=== PATIENT | female | born 1955 | race Caucasian/White ===

== ENCOUNTER 2021-10-24 07:56 | Outpatient (REF) | payer OTHER, SELFPAY ==
[2021-10-24 11:27] LABS: MANUAL DIFF FLAG NO
[2021-10-24 11:49] LABS: Basophils Absolute Auto 0.1 X10*3/uL (0.0-0.2); Basophils Percent Auto 0.9 % (0-2); Eosinophils Absolute Auto 0.4 X10*3/uL (0.0-0.4); Eosinophils Percent Auto 5.9 % (0-4); Hematocrit 41.7 % (37.0-47.0); Hemoglobin 13.6 g/dl (12.0-16.0); Imm Gran Abs Auto 0.03 X10*3/uL (0.00-0.03); Imm Gran Pct Auto 0.4 % (0.0-0.4); Lymphocytes Absolute Auto 1.5 X10*3/uL (1.2-4.9); Lymphocytes Percent Auto 22.3 % (20-40); Mean Corpuscular HGB Conc 32.6 g/dl (31.0-35.0); Mean Corpuscular Hemoglobin 30.7 pg (27.0-33.0); Mean Corpuscular Volume 94.1 fL (80.0-98.0); Mean Platelet Volume 10.1 fL (9.4-12.3); Monocytes Absolute Auto 0.4 X10*3/uL (0.1-1.2); Monocytes Percent Auto 6.4 % (2-11); Neutrophils Absolute Auto 4.3 x10*3/uL (2.0-8.3); Neutrophils Percent Auto 64.1 % (45-73); Platelet Count 406 X10*3/uL (160-400); Red Blood Count 4.43 X10*6/uL (4.20-5.50); Red Cell Distribution Width 12.1 % (11.0-16.0); White Blood Count 6.7 X10*3/uL (4.8-10.8)
[2021-10-24 12:07] LABS: Alanine Aminotransferase 25 U/L (0-31); Albumin Level 3.9 g/dL (3.5-5.0); Alkaline Phosphatase 84 U/L (39-117); Anion Gap 9 (12-20); Aspartate Amino Transferase 20 U/L (5-31); Bilirubin Total 0.7 mg/dL (0.0-1.0); Blood Urea Nitrogen 7 mg/dL (9-16); Calcium 9.2 mg/dL (8.4-10.2); Carbon Dioxide 30 mmol/L (22-29); Chloride 106 mmol/L (96-108); Cholesterol 181 mg/dL; Estimated Glomerular Filt Rate > 60; Glucose Fasting 94 mg/dL (60-99); HDL Cholesterol 47 mg/dL; LDL Cholesterol Calculated 104 mg/dl; Potassium 4.1 mmol/L (3.3-5.1); Sodium 141 mmol/L (135-145); Total Protein 6.9 g/dL (6.5-8.0); Triglycerides 151 mg/dL
[2021-10-24 12:19] LABS: TSH reflex Free T4 1.41 uIU/mL (0.32-4.0)
[2021-10-29 12:31] LABS: Vitamin D 25-OH, D2 61 ng/mL; Vitamin D 25-OH, D3 6 ng/mL; Vitamin D 25-OH, Total 67 ng/mL (30-100)
== END 2021-10-24 07:57 | disposition home or self-care (01) ==
LOC: HO.HMGCLDS 07:56
PROVIDERS: PCP Internal Medicine; Visit Provider Internal Medicine
DX: Z00.01 Encounter for general adult medical examination with abnormal findings (principal); I10 Essential (primary) hypertension; E03.8 Other specified hypothyroidism; E66.01 Morbid (severe) obesity due to excess calories; K21.9 Gastro-esophageal reflux disease without esophagitis; G44.89 Other headache syndrome; F41.1 Generalized anxiety disorder
CPT/HCPCS: 36415; 80053; 80061; 82306; 84443; 85025

== ENCOUNTER → 2022-05-19 14:14 | Outpatient (BNVA) | payer OTHER, SELFPAY | PROVIDERS: PCP Family Medicine; Visit Provider Internal Medicine Pulmonary Disease | DX: R05.3 Chronic cough (principal) ==

== ENCOUNTER 2022-10-29 09:06 | Outpatient (REF) | payer OTHER, SELFPAY ==
--- NOTE | ~2022-10-29 | XR_ITS ---
EXAMINATION: XR CHEST CLINICAL INFORMATION: Chronic cough COMPARISON: None available. TECHNIQUE: 2 views of the chest were obtained. FINDINGS: No significant abnormality is noted involving the heart, lungs, mediastinum, bony thorax or soft tissues. Degenerative changes of the spine. XR/XR chest 2V IMPRESSION: No evidence for acute disease in the chest.
== END 2022-10-29 09:07 | disposition home or self-care (01) ==
LOC: HO.XRAY 09:06
PROVIDERS: PCP Family Medicine; Visit Provider Family Medicine
DX: R05.3 Chronic cough (principal)
CPT/HCPCS: 71046

== ENCOUNTER 2023-02-01 08:56 | Outpatient (AMB) | payer OTHER, SELFPAY ==
[2023-02-01 09:03] VITALS: BP 122/70; PULSE 64; O2SAT 95
--- NOTE | 2023-02-01 09:03 | A.OFFPC_ITS ---
Vital Signs 02/01/23 09:03 Height 5 ft 6 in BMI Reason not done Patient refused/unable BP 122/70 Blood Pressure Location Lt brachial Position Sitting Pulse 64 Pulse Source Pulse Oximeter Pulse Oximetry (%) 95 Oxygen Delivery Method Room Air Intake Visit Reasons: CPE with f/u labs and health maintenance Intake Note: Patient is here for her physical today. Allergies amoxicillin Allergy (Mild, Verified 02/01/23 09:06) Rash Medication List - Last Reconciled 02/01/23 by Wilbert Day MD atenolol 50 mg PO DAILY clobetasol 0.05% 1 appl topical DAILY 90 days ergocalciferol (vitamin D2) 1,250 mcg PO QWEEK 28 days estradiol 0.01%(0.1mg/gram) 1 appful vaginal 2XW famotidine 40 mg PO DAILY 90 days fluticasone propionate 110 mcg/actuation (Flovent HFA) 1 puff inhalation Q12H 30 days hydrochlorothiazide 25 mg PO DAILY ketoconazole 2% topical levothyroxine 75 mcg PO DAILY lorazepam 1 mg PO BEDTIME PRN 30 days omeprazole 20 mg PO BID rizatriptan 10 mg PO DAILY PRN 28 days zinc sulfate (Orazinc) 50 mg PO .2 times weekly Tobacco use date assessed: 02/01/23 Fall risk assessment: No Falls in past year Last assessed Fall Risk: 02/01/23 Dental Screening Dental Screen Date: 02/01/23 Did you have a dental visit in the last 12 months?: Yes Did you have a dental problem in the last 6 months where you did not have access to dental care?: No Was dental information given to patient?: Patient has dentist HPI CPE with f/u labs and health maintenance HPI Details 67 y/o female presents for a CPE with f/ u labs and health maintenance. No recent labs to review. Blood pressure today 122/70. She is on atenolol 50mg daily. Pt reports last colonoscopy was about 3 years ago. Last mammogram 05/21/22 and was fine. She sees her Ob-Leasing Consultant annually. 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 Bob Hedrick, Yudith Navarrete, Navneet Keenan and colleagues, with an educational cydney from [employer]. Review of Systems Const Denies chills, Denies fatigue, Denies fever(s), Denies headache(s) and Denies weakness Eyes Denies change in vision ENT Denies dizziness, Denies headache(s), Denies hearing loss, Denies nasal congestion, Denies sinus pain, Denies sinus pressure and Denies sore throat Card Denies chest pain, Denies lightheadedness, Denies dyspnea and Denies other (palpitations) Resp Denies cough, Denies dyspnea and Denies wheezing GI Denies abdominal pain, Denies melena, Denies hematochezia, Denies change in bowel habits, Denies dyspepsia and Denies nausea Denies hematuria and Denies dysuria Musc Denies abnormal gait, Denies myalgias, Denies arthralgias, Denies numbness and Denies tingling Skin/Breast Denies rash, Denies unusual bruising and Denies wounds Neuro Denies abnormal gait, Denies dizziness, Denies headache(s), Denies memory loss, Denies numbness, Denies Sensory deficit (Neuro), Denies tingling and Denies weakness Psych Denies anxiety, Denies depression and Denies memory loss Endo Denies cold intolerance, Denies fatigue, Denies heat intolerance, Denies polydipsia and Denies polyuria Wilian/Lymph Denies easy bleeding and Denies easy bruising Aller/Immun Denies wheezing Physical exam (Primary Care) Vital Signs: Last Vital Signs Pulse 64 02/01/23 09:03 BP 122/70 02/01/23 09:03 Pulse Ox 95 02/01/23 09:03 Oxygen Delivery Method Room Air 02/01/23 09:03 Tobacco/Smoking Status: Tobacco use Status Tobacco use date assessed 02/01/23 02/01/23 09:08 Patient Tobacco Use Status Never used Tobacco 02/01/23 09:08 e-Cigarette/Vaping Use Never Used 02/01/23 09:08 Thrive Assessment: Date of Thrive Assessment Date Thrive assessed 07/21/21 02/01/23 09:08 Const General: no acute distress, well developed, alert and awake Nutritional Appearance: well nourished Orientation/consciousness: patient oriented x3 HENMT Other: Cerumen debris bilateral ear canal Head: Yes normocephalic and Yes atraumatic Ears: hearing grossly normal bilaterally and TM's normal bilaterally General nose exam: Normal external nose present and Normal nares present Mouth: Normal oral and palatal mucosa present and moist mucous membranes Teeth and gingiva: dentition normal Throat: Yes posterior oropharynx normal Eyes General: appearance normal, both eyes and all related structures Pupils: Equal, round and reactive pupils present and Pupil accommodation reflex normal EOM: EOMs intact bilaterally Neck Neck: Yes normal visual inspection, Yes no lymphadenopathy and Yes trachea midline Thyroid: Thyroid normal Carotids: no bruits Lymphatic: no lymphadenopathy noted Chest Chest palpation & inspection: normal inspection of the chest Resp Effort & Inspection: normal respiratory effort Auscultation: clear to auscultation bilaterally Cardio Rate: regular rate Rhythm: regular rhythm Heart sounds: S1 normal heart sound present, S2 normal heart sound present, no gallops, no murmurs and no rubs Bruits: no abdominal aortic bruits and no carotid bruits GI Palpation (GI): No Abdominal aortic bruit present, Soft to palpation, nontender, No hepatosplenomegaly present and No Rebound tenderness present Auscultation: normal bowel sounds General: Yes no CVA tenderness Back/Spine/Pelvis Back: no CVA tenderness Cervical Spine: cervical ROM normal and No Cervical spine tenderness Thoracic/Lumbar Spine: thoraco-lumbar ROM normal, No pain with thoraco-lumbar ROM, No thoracic spinal tenderness and No lumbar spinal tenderness Skin Lesions: no lesions Rashes: no rashes Trauma: no lacerations or abrasions Wounds: no wounds Nails: normal Neuro General: patient oriented x3 Cranial nerves: Yes Equal, round and reactive pupils present Cognition (Neuro): normal cognition Gait exam (Neuro): Normal gait present Motor exam (neuro): 5/5 motor strength present throughout Sensory Exam: No Sensory deficit (Neuro) Deep tendon reflexes (DTR's): Right patellar reflex intensity grade: 2+ and Left patellar reflex intensity grade: 2+ Extrem General: Yes normal to inspection and No edema Psych Appearance: grossly normal Affect: normal affect Attitude: cooperative Thought process: Normal thought process present Assessment and Plan Assessment & Plan (1) Adult general medical exam: Code(s): Z00.00 - Encounter for general adult medical examination without abnormal findings Plan: 67-year-old female presents for complete physical exam Encouraged healthy diet with active lifestyle and plenty of exercise (2) Chronic cough: Code(s): R05.3 - Chronic cough Plan: This appears to be primarily due to chronic GERD and has improved with omeprazole and famotidine as well as Flovent. Still has mild symptoms. She is working on losing weight If she continues to have symptoms, will refer to Pulmonary Medicine (3) Chronic GERD: Code(s): K21.9 - Gastro-esophageal reflux disease without esophagitis Plan: Continue medications for GERD Work on weight loss (4) Hypertension, essential: Code(s): I10 - Essential (primary) hypertension Plan: Blood pressure is controlled. Goal is less than 140/90 Continue current medication regimen (5) Cerumen debris on tympanic membrane: Code(s): H61.20 - Impacted cerumen, unspecified ear Plan: She can try Debrox drops If she is still having problems, will consider referral to ENT or audiology. (6) Screening for colon cancer: Code(s): Z12.11 - Encounter for screening for malignant neoplasm of colon Plan: Dr. Connell perform colonoscopy 3 years ago and she has a follow-up in 2 years. Up-to-date (7) Screening for osteoporosis: Code(s): Z13.820 - Encounter for screening for osteoporosis Plan: She says she is up-to-date but may be due for bone density again this year. She says no osteoporosis was found Follow-up with OBGYN who manages her bone density testing, as recommended (8) Breast cancer screening by mammogram: Code(s): Z12.31 - Encounter for screening mammogram for malignant neoplasm of breast Plan: Managed by household personal assistant Last mammogram was this year and was negative. Up-to-date Coding Level of Care Code Est Pt Level 3 (10832) Est Pt Prev Care >65y(89595) Diagnoses Adult general medical exam Z00.00 Chronic cough R05.3 Chronic GERD K21.9 Hypertension, essential I10 Cerumen debris on tympanic membrane H61.20 Screening for colon cancer Z12.11 Screening for osteoporosis Z13.820 Breast cancer screening by mammogram Z12.31
== END 2023-02-01 09:54 | disposition home or self-care (01) ==
PROVIDERS: PCP Family Medicine; Visit Provider Family Medicine
DX: Z00.00 Encounter for general adult medical examination without abnormal findings (principal); R05.3 Chronic cough; K21.9 Gastro-esophageal reflux disease without esophagitis; I10 Essential (primary) hypertension; H61.23 Impacted cerumen, bilateral
CPT/HCPCS: 99397

== ENCOUNTER 2023-03-24 12:32 | Outpatient (REF) | payer OTHER, SELFPAY ==
[2023-03-24 12:49] LABS: MANUAL DIFF FLAG NO
[2023-03-24 13:27] LABS: Basophils Absolute Auto 0.1 X10*3/uL (0.0-0.2); Basophils Percent Auto 0.9 % (0-2); Eosinophils Absolute Auto 0.4 X10*3/uL (0.0-0.4); Eosinophils Percent Auto 4.1 % (0-4); Hematocrit 39.4 % (37.0-47.0); Hemoglobin 13.2 g/dl (12.0-16.0); Imm Gran Abs Auto 0.04 X10*3/uL (0.00-0.03); Imm Gran Pct Auto 0.5 % (0.0-0.4); Lymphocytes Absolute Auto 2.3 X10*3/uL (1.2-4.9); Lymphocytes Percent Auto 26.5 % (20-40); Mean Corpuscular HGB Conc 33.5 g/dl (31.0-35.0); Mean Corpuscular Volume 92.5 fL (80.0-98.0); Mean Platelet Volume 9.7 fL (9.4-12.3); Monocytes Absolute Auto 0.6 X10*3/uL (0.1-1.2); Monocytes Percent Auto 7.5 % (2-11); Neutrophils Absolute Auto 5.2 x10*3/uL (2.0-8.3); Neutrophils Percent Auto 60.5 % (45-73); Platelet Count 408 X10*3/uL (160-400); Red Blood Count 4.26 X10*6/uL (4.20-5.50); White Blood Count 8.5 X10*3/uL (4.8-10.8)
[2023-03-24 14:09] LABS: Alanine Aminotransferase 28 U/L (0-31); Alkaline Phosphatase 75 U/L (39-117); Anion Gap 10 (12-20); Aspartate Amino Transferase 29 U/L (5-31); Bilirubin Total 0.4 mg/dL (0.0-1.0); Blood Urea Nitrogen 11 mg/dL (9-16); Calcium 9.2 mg/dL (8.4-10.2); Carbon Dioxide 32 mmol/L (22-29); Chloride 103 mmol/L (96-108); Cholesterol 184 mg/dL (<200); Estimated Glomerular Filt Rate > 60; Glucose Fasting 84 mg/dL (60-99); HDL Cholesterol 45 mg/dL (>40); LDL Cholesterol Calculated 94 mg/dL (<100); Potassium 3.1 mmol/L (3.3-5.1); Sodium 142 mmol/L (135-145); Total Protein 7.2 g/dL (6.5-8.0); Triglycerides 225 mg/dL (<150)
[2023-03-24 14:18] LABS: Appearance Urine Clear; Color Urine Yellow; Glucose Urine UA Negative (Negative); Leukocyte Esterase Urine Small (1+) (Negative); Nitrite Urine Negative (Negative); PH 6.5 (5.0-9.0); Specific Gravity - Urine >= 1.030 (1.005-1.025); UMIC TRIGGER UA YES; Urine Blood Negative (Negative); Urine Ketones Trace mg/dL (Negative); Urine Protein Trace mg/dL (Neg-Trace)
[2023-03-24 14:25] LABS: TSH reflex Free T4 3.26 uIU/mL (0.32-4.0)
[2023-03-24 14:28] LABS: Bacteria Urine None Seen (None Seen); Hyaline Casts Urine 0-2 /LPF (0-2); RBC Urine 0-2 /HPF (0-2); WBC Urine 0-5 /HPF (0-5)
[2023-03-24 15:05] LABS: Creatinine Urine 232.02 mg/dL; Microalbum/Creatinine Ratio Ur 11.6 ug/mg cr (<30)
== END 2023-03-24 12:33 | disposition home or self-care (01) ==
LOC: HO.LAB 12:32
PROVIDERS: PCP Family Medicine; Visit Provider Family Medicine
DX: Z00.00 Encounter for general adult medical examination without abnormal findings (principal); R05.3 Chronic cough; I10 Essential (primary) hypertension
CPT/HCPCS: 36415; 80053; 80061; 81001; 82043; 82570; 84443; 85025

== ENCOUNTER 2023-03-29 15:29 | Outpatient (AMB) | payer OTHER, SELFPAY ==
--- NOTE | 2023-03-29 15:21 | MHC.PC.OV ---
Intake Visit Reasons: f/u CPE-labs, Intake Note: Patient is ready for her telehealth Resource Analyst Required: No Accompanied by: Self / Same As Patient Allergies amoxicillin Allergy (Mild, Verified 03/29/23 15:27) Rash Tobacco use date assessed: 02/01/23 HPI f/u CPE-labs, HPI Details 67 y/o female presents to f/u CPE-labs via telemed. Labs were drawn 03/24/23. Reviewed labs with pt. Triglycerides 225. TC 184. LDL 94. HDL 45. Mild hypokalemia. 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 Bob Hedrick, Yudith Navarrete, Navneet Keenan and colleagues, with an educational cydney from [employer]. Review of Systems Const Denies chills, Denies fatigue, Denies fever(s), Denies headache(s) and Denies weakness ENT Denies dizziness and Denies headache(s) Card Denies dyspnea Resp Denies cough, Denies dyspnea, Denies wheezing and Denies other (shortness of breath) Musc Denies numbness and Denies tingling Neuro Denies dizziness, Denies headache(s), Denies numbness, Denies tingling and Denies weakness Psych Denies anxiety and Denies depression Endo Denies fatigue Aller/Immun Denies wheezing Physical exam (Primary Care) Tobacco/Smoking Status: Tobacco use Status Tobacco use date assessed 02/01/23 03/29/23 15:26 Patient Tobacco Use Status Never used Tobacco 03/29/23 15:26 e-Cigarette/Vaping Use Never Used 03/29/23 15:26 Thrive Assessment: Date of Thrive Assessment Date Thrive assessed 07/21/21 03/29/23 15:26 Telehealth Telehealth Location of provider rendering services: practice address Location of patient: address on file Patient Identification confirmed using: Name, : Yes Telehealth method: voice only Patient verbally consented to treatment: Yes Patient verbally consented to billing insurance company: Yes Patient informed of any privacy concerns related to visit: Yes Minutes spent on Phone/Video with Pt.: 6 Assessment and Plan Assessment & Plan (1) Hypertriglyceridemia: Code(s): E78.1 - Pure hyperglyceridemia Plan: Decreased?saturated?fats?and?cholesterol?in?diet Decrease?sugary?foods?in?diet Maintain?weight?and?encouraged?exercise (2) Hypokalemia: Code(s): E87.6 - Hypokalemia Plan: Mild Hydrate?well.??Can?use?1?electrolyte?drink?per?day? Coding Level of Care Code Tele Est Pt Level 2 (12185) Diagnoses Hypertriglyceridemia E78.1 Hypokalemia E87.6
== END 2023-03-29 16:29 | disposition home or self-care (01) ==
PROVIDERS: PCP Family Medicine; Visit Provider Family Medicine
DX: E78.1 Pure hyperglyceridemia (principal); E87.6 Hypokalemia
CPT/HCPCS: 99441

== ENCOUNTER 2023-07-01 08:22 | Outpatient (AMB) | payer OTHER, SELFPAY ==
[2023-07-01 08:39] VITALS: BP 124/74; PULSE 49; O2SAT 96; BMI 29.9
--- NOTE | 2023-07-01 08:39 | A.OFFPC_ITS ---
Vital Signs 07/01/23 08:39 Height 5 ft 6 in Weight 185 lb BMI 29.9 BP 124/74 Blood Pressure Location Lt brachial Position Sitting Pulse 49 L Pulse Source Pulse Oximeter Pulse Oximetry (%) 96 Oxygen Delivery Method Room Air Intake Visit Reasons: f/u hypertension and chronic conditions Intake Note: Patient is here to follow up on hypertension and chronic conditions. Allergies amoxicillin Allergy (Mild, Verified 07/01/23 08:41) Rash Medication List - Last Reconciled 07/01/23 by Wilbert Day MD atenolol 50 mg PO DAILY clobetasol 0.05% 1 appl topical DAILY 90 days ergocalciferol (vitamin D2) 1,250 mcg PO QWEEK 84 days estradiol 0.01%(0.1mg/gram) 1 appful vaginal 2XW famotidine 40 mg PO DAILY 90 days fluticasone propionate 110 mcg/actuation (Flovent HFA) 1 puff inhalation Q12H 30 days hydrochlorothiazide 25 mg PO DAILY ketoconazole 2% topical levothyroxine 75 mcg PO DAILY lorazepam 1 mg PO BEDTIME PRN 30 days omeprazole 20 mg PO BID rizatriptan 10 mg PO DAILY PRN 28 days zinc sulfate (Orazinc) 50 mg PO .2 times weekly Tobacco use date assessed: 07/01/23 Fall risk assessment: No Falls in past year Last assessed Fall Risk: 07/01/23 Dental Screening Dental Screen Date: 07/01/23 Did you have a dental visit in the last 12 months?: Yes Did you have a dental problem in the last 6 months where you did not have access to dental care?: No Was dental information given to patient?: Patient has dentist HPI f/u hypertension and chronic conditions HPI Details 67 y/o female presents to f/u hypertensi on. Blood pressure today 124/74. She is on hydrochlorothiazide 25mg and atenolol 50mg daily. Labs were drawn 03/24/23. Reviewed labs with pt. Potassium level mildly low. Triglycerides 225. TC 184. LDL 94. HDL 45. 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 1. Little interest or pleasure in doing things: not at all 2. Feeling down, depressed, or hopeless: not at all 3. Trouble falling or staying asleep, or sleeping too much: not at all 4. Feeling tired or having little energy: not at all 5. Poor appetite or overeating: not at all 6. Feeling bad about yourself - or that you are a failure or have let yourself or your family down: not at all 7. Trouble concentrating on things, such as reading the newspaper or watching television: not at all 8. Moving or speaking so slowly that other people could have noticed. Or the opposite - being so fidgety or restless that you have been moving around a lot more than usual: not at all 9. Thoughts that you would be better off or of hurting yourself in some way: not at all Total score: 0 Depression Screening Interpretation: Negative Depression Screening Done: Yes 66103 - PHQ-9 Billing: Yes Source: Developed by Drs. Bob Hedrick, Yudith Navarrete, Navneet Keenan and colleagues, with an educational cydney from [employer]. Thrive Questionnaire Date Thrive assessed: 07/01/23 I am a: Patient What is your living situation today?: I have a steady place to live Within the past 12 months, did the food you bought not last and you didn't have the money to get more?: Never true Within the past 12 months, did you worry whether your food would run out before you got money to buy more?: Never true Do you have trouble paying for medicines?: No Do you have trouble getting transportation to medical appointments?: No Do you have trouble paying your heating and electricity bill?: No Do you have trouble taking care of your child, family member or friend?: No Do you have trouble with day-to-day activities such as bathing, preparing meals, shopping, managing finances, etc.?: No Are you currently unemployed and looking for a job?: No Are you interested in more education?: No THRIVE Score: 0 AUDIT C Alcohol Use Questionnaire (AUDIT-C) 1. How often do you have a drink containing alcohol?: Monthly or less 2. How many drinks containing alcohol do you have on a typical day when you are drinking?: 1 or 2 3. How often do you have six or more drinks on one occasion?: Never Total Score: 1 GLYNN-7 AMB Questionnaire GLYNN-7 Date GLYNN - 7 assessed: 07/01/23 Feeling nervous, anxious, or on edge: 0 = Not at all Not being able to stop or control worryin = Not at all Worrying too much about different things: 0 = Not at all Trouble relaxin = Not at all Being so restless that it is hard to sit still: 0 = Not at all Becoming easily annoyed or irritable: 0 = Not at all Feeling afraid as if something awful might happen: 0 = Not at all Total GLYNN-7 score (0-4 normal; 5-9 mild; 10-14 moderate; 15-21 severe): 0 Source: Developed by Drs. Bob Hedrick, Yudith Navarrete, Navneet Keenan and colleagues, with an educational cydney from [employer]. GLYNN-7 Assessment Billing GLYNN-7 Assessment Tool: GLYNN-7 Assessment [id number] Review of Systems Const Denies chills, Denies fatigue, Denies fever(s), Denies headache(s) and Denies weakness ENT Denies dizziness and Denies headache(s) Card Denies dyspnea Resp Denies cough, Denies dyspnea, Denies wheezing and Denies other (shortness of breath) Musc Denies numbness and Denies tingling Neuro Denies dizziness, Denies headache(s), Denies numbness, Denies tingling and Denies weakness Psych Denies anxiety and Denies depression Endo Denies fatigue Aller/Immun Denies wheezing Physical exam (Primary Care) Vital Signs: Last Vital Signs Pulse 49 L 07/01/23 08:39 BP 124/74 07/01/23 08:39 Pulse Ox 96 07/01/23 08:39 Oxygen Delivery Method Room Air 07/01/23 08:39 BMI result Body Mass Index 29.9 Tobacco/Smoking Status: Tobacco use Status Tobacco use date assessed 07/01/23 07/01/23 08:47 Patient Tobacco Use Status Never used Tobacco 07/01/23 08:47 e-Cigarette/Vaping Use Never Used 07/01/23 08:47 PHQ-9: PHQ-9 Score PHQ-9: Total score 0 07/01/23 08:47 Depression Screening Interpretation: Negative Thrive Assessment: Date of Thrive Assessment Date Thrive assessed 07/01/23 07/01/23 08:47 Const General: well developed; No acute distress Nutritional Appearance: well nourished Orientation/consciousness: patient oriented x3 HENMT Head: Yes normocephalic and Yes atraumatic Eyes General: appearance normal, both eyes and all related structures Pupils: Equal, round and reactive pupils present EOM: EOMs intact bilaterally Resp Effort & Inspection: normal respiratory effort Auscultation: clear to auscultation bilaterally Cardio Rate: regular rate Rhythm: regular rhythm Heart sounds: S1 normal heart sound present, S2 normal heart sound present, no gallops, no murmurs and no rubs Neuro General: patient oriented x3 and gait normal Cranial nerves: Yes Equal, round and reactive pupils present Psych Affect: normal affect Assessment and Plan Assessment & Plan (1) Hypertension, essential: Code(s): I10 - Essential (primary) hypertension Plan: There?is?well?controlled.??Goal?is?less?than?140/90 Continue?current?medication (2) Hypertriglyceridemia: Code(s): E78.1 - Pure hyperglyceridemia Plan: Mild/moderate?elevation?in?triglycerides No?indication?for?medication?however.??Encouraged?lifestyle?changes Other?lipids?are?okay (3) Hypokalemia: Code(s): E87.6 - Hypokalemia Plan: Mildly?low?potassium?level. Likely?due?to?hydrochlorothiazide Increase?potassium?in?diet?or?can?use?OTC?supple Will?recheck?with?next?blood?draw (4) Vitamin D deficiency: Code(s): E55.9 - Vitamin D deficiency, unspecified Plan: Last?check?a?vitamin-D?showed?that?it?is?now?within?normal?range. Will?repeat?with?next?blood?draw She?is?on?89669?IU; if?still?in?normal?range,?would?recommend?we?switch?to?lower?more?frequent?dose. (5) Anxiety, generalized: Code(s): F41.1 - Generalized anxiety disorder Plan: Stable She?uses?lorazepam?p.r.n.,?as?prescribed. Orders: Orders Vitamin D 25-OH Total Today E55.9 - Vitamin D deficiency, unspecified Basic Metabolic Panel Today E87.6 - Hypokalemia, Z00.00 - Encounter for general adult medical examination without abnormal findings Medications: Changed From ergocalciferol (vitamin D2) 1,250 mcg PO QWEEK 4 caps 2RF 28 days To ergocalciferol (vitamin D2) 1,250 mcg PO QWEEK 12 caps 0RF 84 days Refilled lorazepam [facility] verified. Partial refill upon request. 1 mg PO BEDTIME PRN 12 tabs 0RF anxiety 30 days Coding Level of Care Code Est Pt Level 4 (38734) Diagnoses Hypertension, essential I10 Hypertriglyceridemia E78.1 Hypokalemia E87.6 Vitamin D deficiency E55.9 Anxiety, generalized F41.1 Additional Codes GLYNN-7 Assessment Billing - GLYNN-7 Assessment Tool: GLYNN-7 Assessment [id number] ([id number])
== END 2023-07-01 09:02 | disposition home or self-care (01) ==
PROVIDERS: PCP Family Medicine; Visit Provider Family Medicine
DX: I10 Essential (primary) hypertension (principal); E78.1 Pure hyperglyceridemia; E87.6 Hypokalemia; E55.9 Vitamin D deficiency, unspecified; F41.1 Generalized anxiety disorder
CPT/HCPCS: 99214

== ENCOUNTER 2023-09-29 06:07 | Outpatient (REF) | payer OTHER, SELFPAY ==
[2023-09-29 08:38] LABS: Anion Gap 15 (12-20); Blood Urea Nitrogen 10 mg/dL (9-16); Calcium 9.5 mg/dL (8.4-10.2); Carbon Dioxide 26 mmol/L (22-29); Chloride 105 mmol/L (96-108); Estimated Glomerular Filt Rate > 60; Glucose Random 117 mg/dL (60-115); Potassium 3.5 mmol/L (3.3-5.1); Sodium 142 mmol/L (135-145)
[2023-09-29 08:41] LABS: Vitamin D 25-OH Total 35.8 ng/mL (>30)
== END 2023-09-29 06:08 | disposition home or self-care (01) ==
LOC: HO.LAB 06:07
PROVIDERS: PCP Family Medicine; Visit Provider Family Medicine
DX: Z00.00 Encounter for general adult medical examination without abnormal findings (principal); E55.9 Vitamin D deficiency, unspecified; E87.6 Hypokalemia
CPT/HCPCS: 36415; 80048; 82306

== ENCOUNTER 2023-09-30 08:10 | Outpatient (AMB) | payer OTHER, SELFPAY ==
[2023-09-30 08:12] VITALS: BP 116/70; PULSE 62; RESP 14; TEMP 36.1; O2SAT 99
--- NOTE | 2023-09-30 08:12 | MHC.PC.OV ---
Vital Signs 09/30/23 08:12 Height 5 ft 6 in BMI Reason not done Patient refused/unable BP 116/70 Blood Pressure Location Rt brachial Position Sitting Respiration 14 Pulse 62 Pulse Source Pulse Oximeter Temp 97 F Temp Source Temporal Artery Scan Pulse Oximetry (%) 99 Oxygen Delivery Method Room Air Intake Visit Reasons: f/u hypertension, labs Intake Note: Patient would like Rizatriptan refilled. Racing Secretary Required: No Accompanied by: Self / Same As Patient Allergies Seasonal Allergies Allergy (Intermediate, Verified 09/30/23 08:18) Runny Nose amoxicillin Allergy (Mild, Verified 07/01/23 08:41) Rash Medication List - Last Reconciled 09/30/23 by Wilbert Day MD atenolol 50 mg PO DAILY 90 days clobetasol 0.05% 1 appl topical DAILY 90 days ergocalciferol (vitamin D2) 1,250 mcg PO QWEEK 84 days estradiol 0.01%(0.1mg/gram) 1 appful vaginal 2XW famotidine 40 mg PO DAILY fluticasone propionate 110 mcg/actuation (Flovent HFA) 1 puff inhalation Q12H 30 days hydrochlorothiazide 25 mg PO DAILY ketoconazole 2% topical levothyroxine 75 mcg PO DAILY lorazepam 1 mg PO BEDTIME PRN 30 days omeprazole 20 mg PO BID rizatriptan 10 mg PO DAILY PRN 28 days zinc sulfate (Orazinc) 50 mg PO .2 times weekly Tobacco use date assessed: 07/01/23 Fall risk assessment: No Falls in past year Last assessed Fall Risk: 09/30/23 Dental Screening Dental Screen Date: 07/01/23 HPI f/u hypertension, labs HPI Details 67 y/o female presents to f/u hypertension, labs. Pt had mild hypokalemia and I recommended increase potassium in her diet/or use an OTC supplement. Labs were drawn 09/29/23. Reviewed labs with pt. Vitamin D 35.8 and still within normal range. She continues her weekly dose of vitamin D. Potassium level improved and now at 3.5. Blood pressure today 116/70. She is on HCTZ 25mg, atenolol 50mg daily. HPI Comments History of Present Illness Details Documentation assistance for Wilbert Day MD, was provided by Alex Mina, Criminal Intelligence Analyst on 09/30/2023 8:40 AM EST. Ch[place]la, Dr. Day, have read, observed, and verified documentation. PFSH Medical History Subarachnoid hemorrhage Hyperthyroidism Hypertension Surgical History Hx of cholecystectomy Family History Father Hypertension Social History (Updated 09/30/23 @ 08:21 by ASHLEIGH Sidhu) Household Members: Spouse Both parents involved: No Caregiver staying overnight: No Housing: House Are you a primary resident care technician to a significant other at home: No Do you presently have visiting nurse or other home services: No 75 years or older and lives alone: No Alcohol intake: never Patient Tobacco Use Status: Never used Tobacco e-Cigarette/Vaping Use: Never Used Second Hand Smoke Exposure: No Use of substances other than those prescribed or required for medical reasons: No Currently Displaying Signs/Symptoms of Drug Intoxication Withdrawal: No Any prior treatment program specific to substance use: No Have you been hit, kicked, punched, or otherwise hurt by someone within the past year? 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 Bob Hedrick, Yudith Navarrete, Navneet Keenan and colleagues, with an educational cydney from [employer]. Review of Systems Const Denies chills, Denies fatigue, Denies fever(s), Denies headache(s) and Denies weakness ENT Denies dizziness and Denies headache(s) Card Denies dyspnea Resp Denies cough, Denies dyspnea, Denies wheezing and Denies other (shortness of breath) Musc Denies numbness and Denies tingling Neuro Denies dizziness, Denies headache(s), Denies numbness, Denies tingling and Denies weakness Psych Denies anxiety and Denies depression Endo Denies fatigue Aller/Immun Denies wheezing Physical exam (Primary Care) Vital Signs: Last Vital Signs Temp 97 F 09/30/23 08:12 Pulse 62 09/30/23 08:12 Resp 14 09/30/23 08:12 BP 116/70 09/30/23 08:12 Pulse Ox 99 09/30/23 08:12 Oxygen Delivery Method Room Air 09/30/23 08:12 Tobacco/Smoking Status: Tobacco use Status Tobacco use date assessed 07/01/23 09/30/23 08:17 Patient Tobacco Use Status Never used Tobacco 09/30/23 08:21 e-Cigarette/Vaping Use Never Used 09/30/23 08:21 Thrive Assessment: Date of Thrive Assessment Date Thrive assessed 07/01/23 09/30/23 08:17 Const General: well developed; No acute distress Nutritional Appearance: well nourished Orientation/consciousness: patient oriented x3 HENMT Head: Yes normocephalic and Yes atraumatic Eyes General: appearance normal, both eyes and all related structures Pupils: Equal, round and reactive pupils present EOM: EOMs intact bilaterally Resp Effort & Inspection: normal respiratory effort Neuro General: patient oriented x3 and gait normal Cranial nerves: Yes Equal, round and reactive pupils present Psych Affect: normal affect Assessment and Plan Assessment & Plan (1) Hypertension, essential: Code(s): I10 - Essential (primary) hypertension Plan: Blood?pressure?is?well?controlled.??Goal?is?less?than?140/90 Continue?current?medication?regimen (2) Hypokalemia: Code(s): E87.6 - Hypokalemia Plan: Potassium?is?within?normal?range (3) Vitamin D deficiency: Code(s): E55.9 - Vitamin D deficiency, unspecified Plan: Vitamin-D?is?in?normal?range. Will?switch?from?high?dose?weekly?strategy?to?lower?daily?dose. Orders: Orders Comprehensive [place]. Panel Fast Today Z00.00 - Encounter for general adult medical examination without abnormal findings Complete Blood Count Auto Diff Today Z00.00 - Encounter for general adult medical examination without abnormal findings Microalbumin, Random (w Creat) Today I10 - Essential (primary) hypertension UA and rflx microscopic Today Z00.00 - Encounter for general adult medical examination without abnormal findings TSH reflex Free T4 Today Z00.00 - Encounter for general adult medical examination without abnormal findings Triiodothyronine T3 Total Today E03.9 - Hypothyroidism, unspecified Vitamin D 25-OH Total Today E55.9 - Vitamin D deficiency, unspecified Lipid Panel Today Z00.00 - Encounter for general adult medical examination without abnormal findings Free T4 (Free Thyroxine) Today E03.9 - Hypothyroidism, unspecified Medications: New cholecalciferol (vitamin D3) 50 mcg PO DAILY 90 days 90 caps 3RF Refilled rizatriptan 10 mg PO DAILY 28 days PRN 14 tabs 3RF migraine headache Discontinued ergocalciferol (vitamin D2) Discontinued Reason: Doctor's Order 1,250 mcg PO QWEEK 84 days 12 caps 0RF Coding Level of Care Code Est Pt Level 4 (93185) Diagnoses Hypertension, essential I10 Hypokalemia E87.6 Vitamin D deficiency E55.9
== END 2023-09-30 08:56 | disposition home or self-care (01) ==
PROVIDERS: PCP Family Medicine; Visit Provider Family Medicine
DX: I10 Essential (primary) hypertension (principal); E87.6 Hypokalemia; E55.9 Vitamin D deficiency, unspecified
CPT/HCPCS: 99214

== ENCOUNTER 2024-03-15 06:02 | Outpatient (REF) | payer OTHER, SELFPAY ==
[2024-03-15 06:22] LABS: MANUAL DIFF FLAG NO
[2024-03-15 08:00] LABS: Appearance Urine Clear; Color Urine Yellow; Glucose Urine UA Negative (Negative); Leukocyte Esterase Urine Large (3+) (Negative); Nitrite Urine Negative (Negative); Specific Gravity - Urine 1.025 (1.005-1.025); UMIC TRIGGER UA YES; Urine Blood Negative (Negative); Urine Ketones Negative (Negative); Urine Protein Negative (Neg-Trace)
[2024-03-15 08:03] LABS: Basophils Absolute Auto 0.1 X10*3/uL (0.0-0.2); Eosinophils Absolute Auto 0.3 X10*3/uL (0.0-0.4); Eosinophils Percent Auto 3.6 % (0-4); Hematocrit 41.3 % (37.0-47.0); Hemoglobin 13.7 g/dl (12.0-16.0); Imm Gran Abs Auto 0.05 X10*3/uL (0.00-0.03); Imm Gran Pct Auto 0.6 % (0.0-0.4); Lymphocytes Absolute Auto 1.8 X10*3/uL (1.2-4.9); Lymphocytes Percent Auto 22.6 % (20-40); Mean Corpuscular HGB Conc 33.2 g/dl (31.0-35.0); Mean Corpuscular Hemoglobin 30.7 pg (27.0-33.0); Mean Corpuscular Volume 92.6 fL (80.0-98.0); Mean Platelet Volume 9.9 fL (9.4-12.3); Monocytes Absolute Auto 0.6 X10*3/uL (0.1-1.2); Monocytes Percent Auto 6.8 % (2-11); Neutrophils Absolute Auto 5.3 x10*3/uL (2.0-8.3); Neutrophils Percent Auto 65.4 % (45-73); Platelet Count 425 X10*3/uL (160-400); Red Blood Count 4.46 X10*6/uL (4.20-5.50); Red Cell Distribution Width 11.9 % (11.0-16.0); White Blood Count 8.1 X10*3/uL (4.8-10.8)
[2024-03-15 08:15] LABS: Bacteria Urine None Seen (None Seen); Hyaline Casts Urine 0-2 /LPF (0-2); WBC Urine 21-50 /HPF (0-5); Waxy Casts Urine Present
[2024-03-15 08:47] LABS: Creatinine Urine 193.35 mg/dL; Microalbum/Creatinine Ratio Ur 8.7 ug/mg cr (<30)
[2024-03-15 08:48] LABS: Alanine Aminotransferase 31 U/L (0-31); Alkaline Phosphatase 90 U/L (39-117); Anion Gap 15 (12-20); Aspartate Amino Transferase 34 U/L (5-31); Bilirubin Total 0.5 mg/dL (0.0-1.0); Blood Urea Nitrogen 11 mg/dL (9-16); Calcium 9.3 mg/dL (8.4-10.2); Carbon Dioxide 26 mmol/L (22-29); Chloride 105 mmol/L (96-108); Cholesterol 179 mg/dL (<200); Estimated Glomerular Filt Rate > 60; Glucose Fasting 96 mg/dL (60-99); HDL Cholesterol 48 mg/dL (>40); LDL Cholesterol Calculated 106 mg/dL (<100); Potassium 3.5 mmol/L (3.3-5.1); Sodium 142 mmol/L (135-145); Total Protein 7.1 g/dL (6.5-8.0); Triglycerides 128 mg/dL (<150)
[2024-03-15 09:08] LABS: TSH reflex Free T4 4.46 uIU/mL (0.32-4.0); Vitamin D 25-OH Total 44.5 ng/mL (>30)
[2024-03-16 08:22] LABS: Triiodothyronine T3 Total 123 ng/dL (76-181)
[2024-03-20 12:03] LABS: Vitamin C 0.7 mg/dL (0.3-2.7)
== END 2024-03-15 06:03 | disposition home or self-care (01) ==
LOC: HO.LAB 06:02
PROVIDERS: PCP Family Medicine; Visit Provider Family Medicine
DX: Z00.00 Encounter for general adult medical examination without abnormal findings (principal); E03.9 Hypothyroidism, unspecified; I10 Essential (primary) hypertension; E55.9 Vitamin D deficiency, unspecified
CPT/HCPCS: 36415; 80053; 80061; 81001; 81003; 82043; 82180; 82306; 82570; 84439; 84443; 84480; 85025

== ENCOUNTER 2024-03-16 10:26 | Outpatient (AMB) | payer OTHER, SELFPAY ==
--- NOTE | 2024-03-16 10:36 | A.OFFPC_ITS ---
Vital Signs 03/16/24 10:38 Height 5 ft 6 in Weight 190 lb BMI 30.7 BP 123/56 L Blood Pressure Location Lt brachial Position Sitting Respiration 14 Pulse 59 Pulse Source Pulse Oximeter Temp 95.9 F L Temp Source Temporal Artery Scan Pulse Oximetry (%) 97 Oxygen Delivery Method Room Air Intake Visit Reasons: 3 MON FUP MEDICATION Intake Note: 3 moth medication f/u for HTN Allergies Seasonal Allergies Allergy (Intermediate, Verified 03/16/24 10:37) Runny Nose amoxicillin Allergy (Mild, Verified 03/16/24 10:37) Rash Medication List - Last Reconciled 03/16/24 by Wilbert Day MD atenolol 50 mg PO DAILY 90 days betamethasone dipropionate 0.05% 1 appl topical DAILY PRN cholecalciferol (vitamin D3) 50 mcg PO DAILY 90 days ciclopirox 0.77% 1 appl topical BID clobetasol 0.05% 1 appl topical DAILY 90 days estradiol 0.01%(0.1mg/gram) 1 appful vaginal 2XW famotidine 40 mg PO DAILY fluticasone propionate 110 mcg/actuation (Flovent HFA) 1 puff inhalation Q12H 30 days hydrochlorothiazide 25 mg PO DAILY ketoconazole 2% topical levothyroxine 75 mcg PO DAILY lorazepam 1 mg PO BEDTIME PRN 30 days omeprazole 20 mg PO BID rizatriptan 10 mg PO DAILY PRN 28 days triamcinolone acetonide 0.025% 1 appl topical DAILY zinc sulfate (Orazinc) 50 mg PO .2 times weekly Tobacco use date assessed: 07/01/23 Dental Screening Dental Screen Date: 07/01/23 HPI 3 MON FUP MEDICATION HPI Details 68 y/o female presents to f/u chronic co nditions. Blood pressure today 123/56, 59p. She is on atenolol 50mg, hydrochlorothiazide 25mg daily. Has complaints of arthritis on her hands. Labs drawn 03/15/24. Reviewed labs with pt. AST 34, ALT 31. Triglycerides 128. TC 179. LDL 106. HDL 48. TSH 4.46. She is on levothyroxine 75 mcg. She notes she has not been consistent with taking this recently. [facility] Medical History Subarachnoid hemorrhage Hyperthyroidism Hypertension Surgical History Hx of cholecystectomy Family History Father Hypertension Social History (Updated 09/30/23 @ 08:21 by ASHLEIGH Sidhu) Household Members: Spouse Both parents involved: No Caregiver staying overnight: No Housing: House Are you a primary post acute care nurse practitioner to a significant other at home: No Do you presently have visiting nurse or other home services: No 75 years or older and lives alone: No Alcohol intake: never Patient Tobacco Use Status: Never used Tobacco e-Cigarette/Vaping Use: Never Used Second Hand Smoke Exposure: No service: No Current occupational status: employed 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 1. Little interest or pleasure in doing things: not at all 2. Feeling down, depressed, or hopeless: not at all 3. Trouble falling or staying asleep, or sleeping too much: not at all 4. Feeling tired or having little energy: not at all 5. Poor appetite or overeating: not at all 6. Feeling bad about yourself - or that you are a failure or have let yourself or your family down: not at all 7. Trouble concentrating on things, such as reading the newspaper or watching television: not at all 8. Moving or speaking so slowly that other people could have noticed. Or the opposite - being so fidgety or restless that you have been moving around a lot more than usual: not at all 9. Thoughts that you would be better off or of hurting yourself in some way: not at all Total score: 0 Source: Developed by Drs. Bob Hedrick, Yudith Navarrete, Navneet Keenan and colleagues, with an educational cydney from [employer]. Thrive Questionnaire Date Thrive assessed: 07/01/23 I am a: Patient What is your living situation today?: I have a steady place to live Within the past 12 months, did the food you bought not last and you didn't have the money to get more?: Never true Within the past 12 months, did you worry whether your food would run out before you got money to buy more?: Never true Do you have trouble paying for medicines?: No Do you have trouble getting transportation to medical appointments?: No Do you have trouble paying your heating and electricity bill?: No Do you have trouble taking care of your child, family member or friend?: No Do you have trouble with day-to-day activities such as bathing, preparing meals, shopping, managing finances, etc.?: No Are you currently unemployed and looking for a job?: No Are you interested in more education?: No Please select the resources that you would like help with: None Currently or been in a relationship where the following occur: No concerns reported THRIVE Score: 0 AUDIT C Alcohol Use Questionnaire (AUDIT-C) 1. How often do you have a drink containing alcohol?: Never Total Score: 0 GLYNN-7 AMB Questionnaire GLYNN-7 Date GLYNN - 7 assessed: 07/01/23 Feeling nervous, anxious, or on edge: 0 = Not at all Not being able to stop or control worryin = Not at all Worrying too much about different things: 0 = Not at all Trouble relaxin = Not at all Being so restless that it is hard to sit still: 0 = Not at all Becoming easily annoyed or irritable: 0 = Not at all Feeling afraid as if something awful might happen: 0 = Not at all Total GLYNN-7 score (0-4 normal; 5-9 mild; 10-14 moderate; 15-21 severe): 0 Source: Developed by Drs. Bob Hedrick, Yudith Navarrete, Navneet Keenan and colleagues, with an educational cydney from [employer]. Review of Systems Const Denies chills, Denies fatigue, Denies fever(s), Denies headache(s) and Denies weakness ENT Denies dizziness and Denies headache(s) Card Denies chest pain, Denies lightheadedness, Denies dyspnea and Denies other (Palpitations) Resp Denies cough, Denies dyspnea, Denies wheezing and Denies other ( shortness of breath) Musc Denies numbness and Denies tingling Neuro Denies dizziness, Denies headache(s), Denies numbness, Denies tingling, Denies paresthesias and Denies weakness Psych Denies anxiety and Denies depression Endo Denies fatigue Aller/Immun Denies wheezing Physical exam (Primary Care) Vital Signs: Last Vital Signs Temp 95.9 F L 03/16/24 10:38 Pulse 59 03/16/24 10:38 Resp 14 03/16/24 10:38 BP 123/56 L 03/16/24 10:38 Pulse Ox 97 03/16/24 10:38 Oxygen Delivery Method Room Air 03/16/24 10:38 BMI result Body Mass Index 30.7 Tobacco/Smoking Status: Tobacco use Status Tobacco use date assessed 07/01/23 03/16/24 10:43 Patient Tobacco Use Status Never used Tobacco 03/16/24 10:43 e-Cigarette/Vaping Use Never Used 03/16/24 10:43 PHQ-9: PHQ-9 Score PHQ-9: Total score 0 03/16/24 10:43 Thrive Assessment: Date of Thrive Assessment Date Thrive assessed 07/01/23 03/16/24 10:43 Currently or been in a relationship where the following occur: No concerns reported Const General: no acute distress and well developed Nutritional Appearance: well nourished Orientation/consciousness: patient oriented x3 HENMT Head: Yes normocephalic and Yes atraumatic Eyes General: appearance normal, both eyes and all related structures Pupils: Equal, round and reactive pupils present EOM: EOMs intact bilaterally Resp Effort & Inspection: normal respiratory effort Auscultation: clear to auscultation bilaterally Cardio Rate: regular rate Rhythm: regular rhythm Heart sounds: S1 normal heart sound present, S2 normal heart sound present, no gallops, no murmurs and no rubs Neuro General: patient oriented x3 and gait normal Cranial nerves: Yes Equal, round and reactive pupils present Psych Affect: normal affect Coding Level of Care Code Est Pt Level 4 (21574) Diagnoses Hypertension, essential I10 Hyperlipidemia E78.5 Hypothyroidism E03.9 Screening for colon cancer Z12.11 Arthritis of hand M19.049 Elevated liver enzymes R74.8 Assessment & Plan Assessment & Plan (1) Hypertension, essential: Code(s): I10 - Essential (primary) hypertension Category: Medical Plan: Blood?pressure?is?controlled.??Goal?is?less?than?140/90 Continue?current?medication Hydrate?well (2) Hyperlipidemia: Code(s): E78.5 - Hyperlipidemia, unspecified Category: Medical Plan: LDL?cholesterol?mildly?elevated Encouraged?a?diet?lower?in?saturated?fats?and?cholesterol (3) Hypothyroidism: Code(s): E03.9 - Hypothyroidism, unspecified Category: Medical Plan: TSH ?mildly?elevated.??Patient?notes?that?she?has?not?been?taking?her?medication?con sistently She?will?resume?taking?levothyroxine Will?recheck?at?next?visit (4) Screening for colon cancer: Code(s): Z12.11 - Encounter for screening for malignant neoplasm of colon Category: Medical Plan: Patient?had?appointment?with?her?varnish mixer?for?colonoscopy She?she?says?that?she?thinks?the?varnish mixer?mention?something?about?Cro n's Will?request?report (5) Arthritis of hand: Code(s): M19.049 - Primary osteoarthritis, unspecified hand Category: Medical Plan: Use?heat Use?Aspercreme Relative?rest?and?environment?changes (6) Elevated liver enzymes: Code(s): R74.8 - Abnormal levels of other serum enzymes Category: Medical Plan: Recheck?l iver?enzyme?in?a?few?months.??I?recommended?weight?loss?and?good?hydration Orders: Orders Lipid Panel Today E78.5 - Hyperlipidemia, unspecified, Z00.00 - Encounter for general adult medical examination without abnormal findings Comprehensive [place]. Panel Fast Today R74.8 - Abnormal levels of other serum enzymes, Z00.00 - Encounter for general adult medical examination without abnormal findings Free T4 (Free Thyroxine) Today E03.9 - Hypothyroidism, unspecified, R74.8 - Abnormal levels of other serum enzymes Triiodothyronine T3 Total Today E03.9 - Hypothyroidism, unspecified, R74.8 - Abnormal levels of other serum enzymes Thyroid Stimulating Hormone Today E03.9 - Hypothyroidism, unspecified, R74.8 - Abnormal levels of other serum enzymes
[2024-03-16 10:38] VITALS: BP 123/56; PULSE 59; RESP 14; TEMP 35.5; O2SAT 97; BMI 30.7
== END 2024-03-16 11:41 | disposition home or self-care (01) ==
LOC: HO.HMCFM 10:27
PROVIDERS: PCP Family Medicine; Visit Provider Family Medicine
DX: I10 Essential (primary) hypertension (principal); E78.5 Hyperlipidemia, unspecified; E03.9 Hypothyroidism, unspecified; Z12.11 Encounter for screening for malignant neoplasm of colon; M19.049 Primary osteoarthritis, unspecified hand; R74.8 Abnormal levels of other serum enzymes

== ENCOUNTER → 2024-03-16 10:26 | Outpatient (BNVA) | payer OTHER, SELFPAY | PROVIDERS: PCP Family Medicine; Visit Provider Family Medicine ==

== ENCOUNTER 2024-05-11 07:09 | Outpatient (REF) | payer OTHER, SELFPAY ==
[2024-05-11 08:04] LABS: Appearance Urine Cloudy; Color Urine Yellow; Glucose Urine UA Negative (Negative); Leukocyte Esterase Urine Large (3+) (Negative); Nitrite Urine Negative (Negative); Specific Gravity - Urine 1.025 (1.005-1.025); UMIC TRIGGER UA YES; Urine Blood Negative (Negative); Urine Ketones Trace mg/dL (Negative); Urine Protein Trace mg/dL (Neg-Trace)
[2024-05-11 08:31] LABS: Bacteria Urine None Seen (None Seen); RBC Urine 0-2 /HPF (0-2); WBC Urine >50 /HPF (0-5)
[2024-05-11 08:37] LABS: Alanine Aminotransferase 30 U/L (0-31); Albumin Level 3.9 g/dL (3.5-5.0); Alkaline Phosphatase 77 U/L (39-117); Anion Gap 10 (12-20); Aspartate Amino Transferase 27 U/L (5-31); Bilirubin Total 0.5 mg/dL (0.0-1.0); Blood Urea Nitrogen 8 mg/dL (9-16); Calcium 8.9 mg/dL (8.4-10.2); Carbon Dioxide 31 mmol/L (22-29); Chloride 104 mmol/L (96-108); Cholesterol 186 mg/dL (<200); Estimated Glomerular Filt Rate > 60; Free T4 (Free Thyroxine) 1.06 ng/dL (0.71-1.85); Glucose Fasting 98 mg/dL (60-99); HDL Cholesterol 48 mg/dL (>40); LDL Cholesterol Calculated 94 mg/dL (<100); Potassium 4.1 mmol/L (3.3-5.1); Sodium 141 mmol/L (135-145); Thyroid Stimulating Hormone 2.28 uIU/mL (0.32-4.0); Triglycerides 220 mg/dL (<150)
[2024-05-12 08:24] LABS: Triiodothyronine T3 Total 115 ng/dL (76-181)
== END 2024-05-11 07:10 | disposition home or self-care (01) ==
LOC: HO.LAB 07:09
PROVIDERS: PCP Family Medicine; Visit Provider Family Medicine
DX: Z00.00 Encounter for general adult medical examination without abnormal findings (principal); E78.5 Hyperlipidemia, unspecified; R74.8 Abnormal levels of other serum enzymes; E03.9 Hypothyroidism, unspecified
CPT/HCPCS: 36415; 80053; 80061; 81001; 81003; 84439; 84443; 84480

== ENCOUNTER 2024-05-15 08:37 | Outpatient (AMB) | payer OTHER, SELFPAY ==
--- NOTE | 2024-05-15 08:52 | A.OFFPC_ITS ---
Vital Signs 05/15/24 08:57 Height 5 ft 6 in Weight 192 lb 4 oz BMI 31.0 BP 108/70 Blood Pressure Location Rt brachial Position Sitting Respiration 14 Pulse 57 Pulse Source Pulse Oximeter Pulse Oximetry (%) 94 Oxygen Delivery Method Room Air Intake Visit Reasons: PE Intake Note: PE Is last menstrual period known: No Post menopausal: No Patient : No Allergies Seasonal Allergies Allergy (Intermediate, Verified 05/15/24 08:55) Runny Nose amoxicillin Allergy (Mild, Verified 05/15/24 08:55) Rash Medication List - Last Reconciled 05/15/24 by Wilbert Day MD atenolol 50 mg PO DAILY 90 days betamethasone dipropionate 0.05% 1 appl topical DAILY PRN cholecalciferol (vitamin D3) 50 mcg PO DAILY 90 days ciclopirox 0.77% 1 appl topical BID clobetasol 0.05% 1 appl topical DAILY 90 days estradiol 0.01%(0.1mg/gram) 1 appful vaginal 2XW famotidine 40 mg PO DAILY fluticasone propionate 110 mcg/actuation (Flovent HFA) 1 puff inhalation Q12H 30 days hydrochlorothiazide 25 mg PO DAILY ketoconazole 2% topical levothyroxine 75 mcg PO DAILY lorazepam 1 mg PO BEDTIME PRN 30 days omeprazole 20 mg PO BID prednisone 40 mg (2 x 20 mg) PO DAILY 4 days rizatriptan 10 mg PO DAILY PRN 28 days triamcinolone acetonide 0.025% 1 appl topical DAILY zinc sulfate (Orazinc) 50 mg PO .2 times weekly Tobacco use date assessed: 07/01/23 Dental Screening Dental Screen Date: 07/01/23 HPI PE HPI Details 68 y/o female presents for a CPE with f/ u labs and health maint. Labs drawn 05/11/24. Reviewed labs with pt. Triglycerides 220. TC 186. LDL 94. HDL 48. TSH improved from 4.46 to 2.28. Reports intermittent dysuria. Reports finger pain/swelling for several months. Has been using ibuprofen for relief. PFSH Medical History Subarachnoid hemorrhage Hyperthyroidism Hypertension Surgical History Hx of cholecystectomy Family History Father Hypertension Social History Household Members: Spouse Both parents involved: No Caregiver staying overnight: No Housing: House Are you a primary account executive healthcare to a significant other at home: No Do you presently have visiting nurse or other home services: No 75 years or older and lives alone: No Alcohol intake: never Patient Tobacco Use Status: Never used Tobacco e-Cigarette/Vaping Use: Never Used Second Hand Smoke Exposure: No service: No Current occupational status: employed 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 1. Little interest or pleasure in doing things: not at all 2. Feeling down, depressed, or hopeless: not at all 3. Trouble falling or staying asleep, or sleeping too much: not at all 4. Feeling tired or having little energy: not at all 5. Poor appetite or overeating: not at all 6. Feeling bad about yourself - or that you are a failure or have let yourself or your family down: not at all 7. Trouble concentrating on things, such as reading the newspaper or watching television: not at all 8. Moving or speaking so slowly that other people could have noticed. Or the opposite - being so fidgety or restless that you have been moving around a lot more than usual: not at all 9. Thoughts that you would be better off or of hurting yourself in some way: not at all Total score: 0 Depression Screening Interpretation: Negative Depression Screening Done: Yes 50086 - PHQ-9 Billing: Yes Source: Developed by Drs. Bob Hedrick, Yudith Navarrete, Navneet Keenan and colleagues, with an educational cydney from [employer]. Thrive Questionnaire Date Thrive assessed: 05/15/24 I am a: Patient What is your living situation today?: I have a steady place to live Within the past 12 months, did the food you bought not last and you didn't have the money to get more?: Never true Within the past 12 months, did you worry whether your food would run out before you got money to buy more?: Never true Do you have trouble paying for medicines?: No Do you have trouble getting transportation to medical appointments?: No Do you have trouble paying your heating and electricity bill?: No Do you have trouble taking care of your child, family member or friend?: No Do you have trouble with day-to-day activities such as bathing, preparing meals, shopping, managing finances, etc.?: No Are you currently unemployed and looking for a job?: No Are you interested in more education?: No Please select the resources that you would like help with: None Currently or been in a relationship where the following occur: No concerns reported THRIVE Score: 0 AUDIT C Alcohol Use Questionnaire (AUDIT-C) 1. How often do you have a drink containing alcohol?: Never 3. How often do you have six or more drinks on one occasion?: Never Total Score: 0 GLYNN-7 AMB Questionnaire GLYNN-7 Date GLYNN - 7 assessed: 05/15/24 Feeling nervous, anxious, or on edge: 0 = Not at all Not being able to stop or control worryin = Not at all Worrying too much about different things: 0 = Not at all Trouble relaxin = Not at all Being so restless that it is hard to sit still: 0 = Not at all Becoming easily annoyed or irritable: 0 = Not at all Feeling afraid as if something awful might happen: 0 = Not at all Total GLYNN-7 score (0-4 normal; 5-9 mild; 10-14 moderate; 15-21 severe): 0 Source: Developed by Drs. Bob Hedrick, Yudith Navarrete, Navneet Keenan and colleagues, with an educational cydney from [employer]. GLYNN-7 Assessment Billing GLYNN-7 Assessment Tool: GLYNN-7 Assessment 95449 Review of Systems Const Denies chills, Denies fatigue, Denies fever(s), Denies headache(s) and Denies weakness Eyes Denies change in vision ENT Denies dizziness, Denies headache(s), Denies hearing loss, Denies nasal congestion, Denies sinus pain, Denies sinus pressure and Denies sore throat Card Denies chest pain, Denies lightheadedness, Denies dyspnea and Denies other (palpitations) Resp Denies cough, Denies dyspnea and Denies wheezing GI Denies abdominal pain, Denies melena, Denies hematochezia, Denies change in bowel habits, Denies dyspepsia and Denies nausea Denies hematuria and Denies dysuria Musc Denies abnormal gait, Denies myalgias, Denies arthralgias, Denies numbness and Denies tingling Skin/Breast Denies rash, Denies unusual bruising and Denies wounds Neuro Denies abnormal gait, Denies dizziness, Denies headache(s), Denies memory loss, Denies numbness, Denies Sensory deficit (Neuro), Denies tingling and Denies weakness Psych Denies anxiety, Denies depression and Denies memory loss Endo Denies cold intolerance, Denies fatigue, Denies heat intolerance, Denies polydipsia and Denies polyuria Wilian/Lymph Denies easy bleeding and Denies easy bruising Aller/Immun Denies wheezing Physical exam (Primary Care) Vital Signs: Last Vital Signs Pulse 57 05/15/24 08:57 Resp 14 05/15/24 08:57 BP 108/70 05/15/24 08:57 Pulse Ox 94 05/15/24 08:57 Oxygen Delivery Method Room Air 05/15/24 08:57 BMI result Body Mass Index 31.0 Tobacco/Smoking Status: Tobacco use Status Tobacco use date assessed 07/01/23 05/15/24 08:59 Patient Tobacco Use Status Never used Tobacco 05/15/24 08:59 e-Cigarette/Vaping Use Never Used 05/15/24 08:59 PHQ-9: PHQ-9 Score PHQ-9: Total score 0 05/15/24 09:20 Depression Screening Interpretation: Negative Thrive Assessment: Date of Thrive Assessment Date Thrive assessed 05/15/24 05/15/24 08:59 Currently or been in a relationship where the following occur: No concerns reported Const General: no acute distress, well developed, alert and awake Nutritional Appearance: well nourished Orientation/consciousness: patient oriented x3 HENMT Head: Yes normocephalic and Yes atraumatic Ears: hearing grossly normal bilaterally and TM's normal bilaterally General nose exam: Normal external nose present and Normal nares present Mouth: Normal oral and palatal mucosa present and moist mucous membranes Teeth and gingiva: dentition normal Throat: Yes posterior oropharynx normal Eyes General: appearance normal, both eyes and all related structures Pupils: Equal, round and reactive pupils present and Pupil accommodation reflex normal EOM: EOMs intact bilaterally Neck Neck: Yes normal visual inspection, Yes no lymphadenopathy and Yes trachea midline Thyroid: Thyroid normal Carotids: no bruits Lymphatic: no lymphadenopathy noted Chest Chest palpation & inspection: normal inspection of the chest Resp Effort & Inspection: normal respiratory effort Auscultation: clear to auscultation bilaterally Cardio Rate: regular rate Rhythm: regular rhythm Heart sounds: S1 normal heart sound present, S2 normal heart sound present, no gallops, no murmurs and no rubs Bruits: no abdominal aortic bruits and no carotid bruits GI Palpation (GI): No Abdominal aortic bruit present, Soft to palpation, nontender, No hepatosplenomegaly present and No Rebound tenderness present Auscultation: normal bowel sounds General: Yes no CVA tenderness Back/Spine/Pelvis Back: no CVA tenderness Cervical Spine: cervical ROM normal and No Cervical spine tenderness Thoracic/Lumbar Spine: thoraco-lumbar ROM normal, No pain with thoraco-lumbar ROM, No thoracic spinal tenderness and No lumbar spinal tenderness Skin Lesions: no lesions Rashes: no rashes Trauma: no lacerations or abrasions Wounds: no wounds Nails: normal Neuro General: patient oriented x3 Cranial nerves: Yes Equal, round and reactive pupils present Cognition (Neuro): normal cognition Gait exam (Neuro): Normal gait present Motor exam (neuro): 5/5 motor strength present throughout Sensory Exam: No Sensory deficit (Neuro) Deep tendon reflexes (DTR's): Right patellar reflex intensity grade: 2+ and Left patellar reflex intensity grade: 2+ Extrem General: Yes normal to inspection and No edema Psych Appearance: grossly normal Affect: normal affect Attitude: cooperative Thought process: Normal thought process present Coding Level of Care Code Est Pt Level 3 (74739) Est Pt Prev Care >65y(84554) Diagnoses Adult general medical exam Z00.00 Hypertension, essential I10 Hyperlipidemia E78.5 Dysuria R30.0 Finger pain M79.646 Chronic GERD K21.9 Hypothyroidism E03.9 Breast cancer screening by mammogram Z12.31 Screening for cervical cancer Z12.4 Screening for colon cancer Z12.11 Additional Codes GLYNN-7 Assessment Billing - GLYNN-7 Assessment Tool: GLYNN-7 Assessment 12489 ([id number]) PHQ-9 - 77863 - PHQ-9 Billing: Yes ([id number]) Assessment & Plan Assessment & Plan (1) Adult general medical exam: Code(s): Z00.00 - Encounter for general adult medical examination without abnormal findings Category: Medical Plan: 68-year-old?female?presents?for?complete?physical?exam Encouraged?healthy?diet?with?active?lifestyle?and?plenty?of?exercise (2) Hypertension, essential: Code(s): I10 - Essential (primary) hypertension Category: Medical Plan: Blood?pressure?is?controlled.??Goal?is?less?than?140/90 Continue?current?medications (3) Hyperlipidemia: Code(s): E78.5 - Hyperlipidemia, unspecified Category: Medical Plan: LDL?cholesterol?is?improved.??However?triglycerides?are?elevated Encouraged?ongoing?work?at?a?diet?lower?in?saturated?fats?and?cholesterol. We?can?follow (4) Dysuria: Code(s): R30.0 - Dysuria Category: Medical Plan: Intermittent?mild?dysuria Increase?white?blood?cell?activity?but?no?blood?and?no?nitrites.??Also bacteria?seen. Will?repeat?with urine?culture.??Will?also?check?GC?chlamydia (5) Finger pain: Code(s): M79.646 - Pain in unspecified finger(s) Category: Medical Plan: Right?3rd?finger?pain?swelling?and?catching. No?injury Doubt?overuse?injury Does?appear?to?tendonitis?finger She?tries?topical?NSAIDs?but?does?not?tolerate?oral?NSAIDs. She?can?continue?using?topical?NSAID,?elevating?and,?icing?hand?after?work Will?give?her?a?short?course?prednisone Checking?x-ray Referring?her?to?Ortho/hand surgery (6) Chronic GERD: Code(s): K21.9 - Gastro-esophageal reflux disease without esophagitis Category: Medical Plan: Continue?omeprazole Using?famotidine?p.r.n. Follow-up?with?GI (7) Hypothyroidism: Code(s): E03.9 - Hypothyroidism, unspecified Category: Medical Plan: Patient?had?stopped?her?levothyroxine?and ?TSH?was?elevated?at?last?check?but?no?back?in?normal?range Continue?levothyroxine?as?prescribed (8) Breast cancer screening by mammogram: Code(s): Z12.31 - Encounter for screening mammogram for malignant neoplasm of breast Category: Medical Plan: Patient?is?scheduled?for?her?next?mammogram.??She?did?have?in?her?views?right?[place]?last?mammogram?about?a?year?ago. Extra?view?showed?no?evidence?of?malignancy She?continues?annual?screening (9) Screening for cervical cancer: Code(s): Z12.4 - Encounter for screening for malignant neoplasm of cervix Category: Medical Plan: Pap?smear?last?year?with?Dr. Adkins was?normal Up-to-date (10) Screening for colon cancer: Code(s): Z12.11 - Encounter for screening for malignant neoplasm of colon Category: Medical Plan: Recent?colonoscopy?with??showed?polyps?and?she?has?a?follow- up?next?year Up-to-date Orders: Orders Urine Culture Today R30.0 - Dysuria XR hand RT min 3V Today M79.644 - Pain in right finger(s) CT NG by PCR Today R30.0 - Dysuria, Z11.3 - Encounter for screening for infections with a predominantly sexual mode of transmission UA and rflx microscopic Today R30.0 - Dysuria, Z00.00 - Encounter for general adult medical examination without abnormal findings Referrals Hand Surgery Referral M79.644 - Pain in right finger(s) Medications: New prednisone 40 mg (2 x 20 mg) PO DAILY 4 days 8 tabs 0RF
[2024-05-15 08:57] VITALS: BP 108/70; PULSE 57; RESP 14; O2SAT 94; BMI 31.0
== END 2024-05-15 09:45 | disposition home or self-care (01) ==
PROVIDERS: PCP Family Medicine; Visit Provider Family Medicine
DX: Z00.00 Encounter for general adult medical examination without abnormal findings (principal); I10 Essential (primary) hypertension; M79.644 Pain in right finger(s); E78.5 Hyperlipidemia, unspecified; R30.0 Dysuria; K21.9 Gastro-esophageal reflux disease without esophagitis; E03.9 Hypothyroidism, unspecified; Z12.31 Encounter for screening mammogram for malignant neoplasm of breast; Z12.11 Encounter for screening for malignant neoplasm of colon

== ENCOUNTER → 2024-05-15 08:37 | Outpatient (BNVA) | payer OTHER, SELFPAY | PROVIDERS: PCP Family Medicine; Visit Provider Family Medicine | DX: Z00.00 Encounter for general adult medical examination without abnormal findings (principal); I10 Essential (primary) hypertension; E78.5 Hyperlipidemia, unspecified; R30.0 Dysuria; M79.644 Pain in right finger(s); K21.9 Gastro-esophageal reflux disease without esophagitis; E03.9 Hypothyroidism, unspecified; Z79.899 Other long term (current) drug therapy | CPT/HCPCS: 96127 ==

== ENCOUNTER 2024-05-17 06:47 | Outpatient (REF) | payer OTHER, SELFPAY ==
[2024-05-17 07:54] LABS: Appearance Urine Clear; Color Urine Yellow; Glucose Urine UA Negative (Negative); Leukocyte Esterase Urine Moderate (2+) (Negative); Nitrite Urine Negative (Negative); Specific Gravity - Urine 1.025 (1.005-1.025); UMIC TRIGGER UA YES; Urine Blood Negative (Negative); Urine Ketones Negative (Negative); Urine Protein Negative (Neg-Trace)
[2024-05-17 08:00] LABS: Bacteria Urine None Seen (None Seen); Hyaline Casts Urine 0-2 /LPF (0-2); RBC Urine 0-2 /HPF (0-2); WBC Urine 21-50 /HPF (0-5)
== END 2024-05-17 06:48 | disposition home or self-care (01) ==
LOC: HO.LAB 06:47
PROVIDERS: PCP Family Medicine; Visit Provider Family Medicine
DX: R30.0 Dysuria (principal)
CPT/HCPCS: 81001; 87086

== ENCOUNTER 2024-06-18 14:41 | Outpatient (AMB) | payer OTHER, SELFPAY ==
[2024-06-18 15:14] VITALS: BP 108/68; PULSE 59; O2SAT 94; BMI 30.8
--- NOTE | 2024-06-18 15:14 | MHC.PC.OV ---
Vital Signs 06/18/24 15:14 Height 5 ft 6 in Weight 191 lb BMI 30.8 BP 108/68 Blood Pressure Location Lt brachial Position Sitting Pulse 59 Pulse Source Pulse Oximeter Pulse Oximetry (%) 94 Oxygen Delivery Method Room Air Intake Visit Reasons: rash from neck down on back Intake Note: Rash from neck down. Started in April, worse over the weeked. 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 Tired triamcinolone actetonide 0.025, betamethasone 0.05 cream and ciclopirox 0.77%, all without relief. 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: No Allergies Seasonal Allergies Allergy (Intermediate, Verified 06/18/24 15:17) Runny Nose amoxicillin Allergy (Mild, Verified 06/18/24 15:17) Rash Medication List - Last Reconciled 06/18/24 by Wilbert Day MD atenolol 50 mg PO DAILY 90 days betamethasone dipropionate 0.05% 1 appl topical DAILY PRN cholecalciferol (vitamin D3) 50 mcg PO DAILY 90 days ciclopirox 0.77% 1 appl topical BID clobetasol 0.05% 1 appl topical DAILY 90 days estradiol 0.01%(0.1mg/gram) 1 appful vaginal 2XW famotidine 40 mg PO DAILY fluticasone propionate 110 mcg/actuation (Flovent HFA) 1 puff inhalation Q12H 30 days hydrochlorothiazide 25 mg PO DAILY ketoconazole 2% topical levothyroxine 75 mcg PO DAILY lorazepam 1 mg PO BEDTIME PRN 30 days omeprazole 20 mg PO BID rizatriptan 10 mg PO DAILY PRN 28 days triamcinolone acetonide 0.025% 1 appl topical DAILY zinc sulfate (Orazinc) 50 mg PO .2 times weekly Tobacco use date assessed: 07/01/23 Dental Screening Dental Screen Date: 07/01/23 HPI rash from neck down on back HPI Details 68 y/o female presents with complaints of a rash. Rash from neck down. Started in April, worse over the weekend. 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 Has tried triamcinolone actetonide 0.025, betamethasone 0.05 cream and ciclopirox 0.77%, all without relief. She notes rash is itchy. 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 1. Little interest or pleasure in doing things: not at all 2. Feeling down, depressed, or hopeless: not at all 3. Trouble falling or staying asleep, or sleeping too much: not at all 4. Feeling tired or having little energy: not at all 5. Poor appetite or overeating: not at all 6. Feeling bad about yourself - or that you are a failure or have let yourself or your family down: not at all 7. Trouble concentrating on things, such as reading the newspaper or watching television: not at all 8. Moving or speaking so slowly that other people could have noticed. Or the opposite - being so fidgety or restless that you have been moving around a lot more than usual: not at all 9. Thoughts that you would be better off or of hurting yourself in some way: not at all Total score: 0 Source: Developed by Drs. Bob Hedrick, Yudith Navarrete, Navneet Keenan and colleagues, with an educational cydney from [employer]. Thrive Questionnaire Date Thrive assessed: 05/15/24 I am a: Patient What is your living situation today?: I have a steady place to live Within the past 12 months, did the food you bought not last and you didn't have the money to get more?: Never true Within the past 12 months, did you worry whether your food would run out before you got money to buy more?: Never true Do you have trouble paying for medicines?: No Do you have trouble getting transportation to medical appointments?: No Do you have trouble paying your heating and electricity bill?: No Do you have trouble taking care of your child, family member or friend?: No Do you have trouble with day-to-day activities such as bathing, preparing meals, shopping, managing finances, etc.?: No Are you currently unemployed and looking for a job?: No Are you interested in more education?: No Please select the resources that you would like help with: None Currently or been in a relationship where the following occur: No concerns reported THRIVE Score: 0 AUDIT C Alcohol Use Questionnaire (AUDIT-C) 1. How often do you have a drink containing alcohol?: Monthly or less 2. How many drinks containing alcohol do you have on a typical day when you are drinking?: 1 or 2 3. How often do you have six or more drinks on one occasion?: Never Total Score: 1 GLYNN-7 AMB Questionnaire GLYNN-7 Date GLYNN - 7 assessed: 05/15/24 Feeling nervous, anxious, or on edge: 0 = Not at all Not being able to stop or control worryin = Not at all Worrying too much about different things: 0 = Not at all Trouble relaxin = Not at all Being so restless that it is hard to sit still: 0 = Not at all Becoming easily annoyed or irritable: 0 = Not at all Feeling afraid as if something awful might happen: 0 = Not at all Total GLYNN-7 score (0-4 normal; 5-9 mild; 10-14 moderate; 15-21 severe): 0 Source: Developed by Drs. Bob Hedrick, Yudith Navarrete, Navneet Keenan and colleagues, with an educational cydney from [employer]. Review of Systems Skin/Breast Reports rash Physical exam (Primary Care) Vital Signs: Last Vital Signs Pulse 59 06/18/24 15:14 BP 108/68 06/18/24 15:14 Pulse Ox 94 06/18/24 15:14 Oxygen Delivery Method Room Air 06/18/24 15:14 BMI result Body Mass Index 30.8 Tobacco/Smoking Status: Tobacco use Status Tobacco use date assessed 07/01/23 06/18/24 15:22 Patient Tobacco Use Status Never used Tobacco 06/18/24 15:22 e-Cigarette/Vaping Use Never Used 06/18/24 15:22 PHQ-9: PHQ-9 Score PHQ-9: Total score 0 06/18/24 15:33 Thrive Assessment: Date of Thrive Assessment Date Thrive assessed 05/15/24 06/18/24 15:22 Currently or been in a relationship where the following occur: No concerns reported Coding Level of Care Code Est Pt Level 3 (10767) Diagnoses Rash R21 Assessment & Plan Assessment & Plan (1) Rash: Code(s): R21 - Rash and other nonspecific skin eruption Category: Medical Plan: Hives?like?rash?on?abdomen?back?and?forearms Start?prednisone?taper Advised?Benadryl?50?mg?t.i.d. Will?give?her?a?script?for?EpiPen?if?needed?though?she?has?no?symptoms?difficulty?swallowing?shortness?breath?or?stridor?at present. Cool?showers, loose?fitting?clothes Watch?for?any?triggers?and?avoid Referred?to?immunology Orders: Orders UA and rflx microscopic Today R21 - Rash and other nonspecific skin eruption, Z00.00 - Encounter for general adult medical examination without abnormal findings Comprehensive Met. Panel Today R21 - Rash and other nonspecific skin eruption Complete Blood Count Auto Diff Today R21 - Rash and other nonspecific skin eruption, Z00.00 - Encounter for general adult medical examination without abnormal findings Erythrocyte Sedimentation Rate Today R21 - Rash and other nonspecific skin eruption CRP High Sensitivity Today R21 - Rash and other nonspecific skin eruption Referrals Allergy & Immunology Referral R21 - Rash and other nonspecific skin eruption Medications: New prednisone 4 tabs daily for 4 days, 3 tabs daily for 2 days, 2 tabs daily for 2 days, 1 tab daily for 2 days PO daily; 28 tabs 1RF 10 days epinephrine (EpiPen 2-Indra) 0.3 mg (0.3 mL) IM Q4H PRN 2 ea 2RF anaphylaxis 30 days
--- OUTSIDE RECORDS SUMMARY | 2024-06-18 16:14 | XMS_ITS | Clinical Summary ---
Author Organization [facility] [place] [address] Care Team Providers Care Surgical Elastic Knitter Hand Frame Name Role Phone Rudolph Farah MD Primary Care Provider [phone] Encounters Date Type Department Care Team Description 03/26/2024 Lab Requisition [facility] - Main Lab 299 [facility] [place] [address] Wilbert Adkins MD Encounter for gynecological examination (general) (routine) without abnormal findings from Last 3 Months Social History Tobacco Use Types Packs/Day Years Used Date Smoking Tobacco: Never Assessed Sex and Gender Information Value Date Recorded Sex Assigned at Not on file Gender Identity Not on file Sexual Orientation Not on file Plan of Treatment Health Maintenance Due Date Last Done Comments DTaP,Tdap,and Td Vaccines (1 - Tdap) 10/14/1974 Zoster Vaccines (1 of 2) 10/14/2005 Cholesterol Screening (Lipid Panel) 06/21/2019 Colorectal Cancer Screening: Colonoscopy 06/21/2019 Depression Screening 06/21/2019 Hepatitis C Screening 06/21/2019 Social Influencers of Health Screening 06/21/2019 Falls Risk Assessment 10/14/2020 Pneumococcal Vaccine: 65+ Ye ars (2 of 2 - PPSV23 or PCV20) 10/14/2020 08/01/2019 COVID-19 Vaccine (1 - 2023-2 5 season) 2024 Influenza Vaccine (#1) 2024 01/27/2020 Breast Cancer Screening 06/02/2025 06/02/2023 RSV Immunization Patients 60 + Years Old (1 - 1-dose 75+ series) 10/14/2030 Osteoporosis Screening (Bone Density Screening) 06/02/2033 06/02/2023 HIB Vaccines Aged Out No longer eligi ble based on patient's age to complete this topic HPV Vaccines Aged Out No longer eligi ble based on patient's age to complete this topic Hepatitis A Vaccines Aged Out No long er eligible based on patient's age to complete this topic Hepatitis B Vaccines Aged Out No long er eligible based on patient's age to complete this topic IPV Vaccines Aged Out No longer eligi ble based on patient's age to complete this topic MMR Vaccines Aged Out No longer eligi ble based on patient's age to complete this topic Meningococcal ACWY Vaccine Aged Out N o longer eligible based on patient's age to complete this topic RSV Immunization Patients Un chance 20 months Aged Out No longer eligible b ased on patient's age to complete this topic Varicella Vaccines Aged Out No longer eligible based on patient's age to complete this topic Procedures Procedure Name Priority Date/Time Associated Diagnosis Comments PAP SMEAR Routine 03/23/2024 12:00 AM EST Encounter for gynecological examination (general) (routine) without abnormal findings [facility] SCREENING DIGITAL Routine 06/02/2023 8:11 AM EST Encounter for screening mammogram for malignant neoplasm of breast [facility] DEXA AXIAL SKELETON Routine 06/02/2023 8:01 AM EST Encounter for screening for osteoporosis from Last 3 Months or Most Recently Relevant to Health Maintenance Results * Pap smear (03/23/2024 12:00 AM EST) Interpretation Negative for intraepithelial lesion or malignancy 03/29/2024 8:39 AM [facility] General Categorization Negative 03/29/2024 8:39 AM [facility] Other Findings Atrophy 03/29/2024 8:39 AM [facility] Specimen Adequacy Satisfactory for evaluation 03/29/2024 8:39 AM [facility] Pap Methodology Liquid Based Pap Test 03/29/2024 8:39 AM [facility] Disclaimer The Pap test is a screening test which carries an inherent false negative rate. These test results should be correlated with the patient's clinical findings and history. This Pap test was processed using an automated screening system. Technical cytopathology services provided by [facility], at [address] [place] [address] (IA # [id number]/Hari Foley MD, Rough Patcher.) 03/29/2024 8:39 AM EST [facility] Console Pap Interpretation Reported 03/29/2024 8:39 AM EST [facility] Brushing/Spatula Cervix uteri structure / Unknown 03/23/2024 03/26/2024 7:29 AM EST Wilbert Adkins MD LAB CYTOLOGY ORDERAB LES [facility] [address] [place] [address], * MICHAEL SCREENING DIGITAL (06/02/2023 8:11 AM EST) Anatomical Region Laterality Modality Mammography 06/02/2023 7:02 AM EST Narrative 06/02/2023 8:11 AM [facility] Diagnostic Imaging Department [address] [place] [address] Patient: ??MARITA BERNAL ?/Age/Sex: 1955 Unit#: ??[id number] ? Location/Status: ??SPDIMAM/REG CLI ? Mnemonic/Ordering Site: ??DIGSC/SPMAM Ordering Physician: ??WILBERT ADKINS MD [facility] Screening Digital - 06/02/23 - 722 Report Status:Signed EXAM: [facility] Screening Digital EXAM DATE AND TIME: 06/02/2023 7:24 AM HISTORY: ??Annual screening COMPARISON: ??None TECHNIQUE: Bilateral digital breast tomosynthesis was performed in the CC and MLO projections. Computer aided detection with [employer] 3D 3.1 was employed. TISSUE DENSITY: b. There are scattered areas of fibroglandular density. FINDINGS: Possible asymmetry in the upper outer quadrant of the right breast seen posteriorly on the MLO view. ??No associated calcification or architectural distortion. ??The left breast is unremarkable. IMPRESSION: Possible asymmetry in the upper outer quadrant of the right breast seen posteriorly on the MLO view. ??Recommend diagnostic mammogram of the right breast with spot compression MLO tomographic views. BI-RADS: ??Category 0: Incomplete - Need Additional Imaging Evaluation Dictating Physician: ??BRENDA MACKENZIE MD Electronically Signed by: ??BRENDA MACKENZIE MD Dic Date/Time: ??06/02/23 0809 Sign date/Time: ??06/02/23 0811 Procedure Note Brenda Mackenzie MD - 01/02/2024 [facility] Diagnostic Imaging Department [address] [place] [address] [id number] Patient: MARITA BERNAL./Age/Sex: 1955 - 67 - F Unit#: [id number] Location/Status: [facility] CLI Mnemonic/Ordering Site: [facility] Ordering Physician: WILBERT ADKINS MD Michael Screening Digital - 06/02/23722 Report Status:Signed EXAM: [facility] Screening Digital EXAM DATE AND TIME: 06/02/2023 7:24 AM HISTORY: Annual screening COMPARISON: None TECHNIQUE: Bilateral digital breast tomosynthesis was performed in the CCand MLO projections. Computer aided detection with [employer] 3D 3.1was employed. TISSUE DENSITY: b. There are scattered areas of fibroglandular density. FINDINGS: Possible asymmetry in the upper outer quadrant of the right breast seen posteriorly on the MLO view. No associated calcification orarchitectural distortion. The left breast is unremarkable. IMPRESSION: Possible asymmetry in the upper outer quadrant of the right breast seen posteriorly on the MLO view. Recommend diagnostic mammogram of the rightbreast with spot compression MLO tomographic views. BI-RADS: Category 0: Incomplete - Need Additional Imaging Evaluation Dictating Physician: BRENDA MACKENZIE MD Electronically Signed by: BRENDA MACKENZIE MD Dic Date/Time: 06/02/23808 Sign date/Time: 06/02/23810 Wilbert Adkins MD IMG BI PROCEDURES * [facility] DEXA AXIAL SKELETON (06/02/2023 8:01 AM EST) Anatomical Region Laterality Modality Mammography 06/02/2023 7:04 AM EST Narrative 06/02/2023 8:01 AM EST [facility] Diagnostic Imaging Department [address] [place] [address] Patient: ??MARITA BERNAL ?/Age/Sex: 1955 - 67 - F Unit#: ??[id number] ? Location/Status: ??SPDIMAM/REG CLI ? Mnemonic/Ordering Site: ??MAMDEXAAX/SPMAM Ordering Physician: ??WILBERT ADKINS MD Michael Dexa Axial Skeleton - 06/02/23734 Report Status:Signed HISTORY: ??The patient is a 67-year-old postmenopausal female with clinical concern for metabolic bone disease. FINDINGS: ??Dual energy x-ray absorptiometry of the lumbar spine and femurs is performed. The mean bone mineral density at L1-2 is 1.208 gm/cm2 which is 104% of that of young normals and 115% of that of age matched controls. This yields a T-score of 0.4 and a Z-score of 1.3 and there is therefore no evidence of osteoporosis or osteopenia here. The mean bone mineral density of the femurs bilaterally is 1.067 gm/cm2 which is 106% of that of young normals and 118% of that of age matched controls. ??This yields a T-score of 0.5 and a Z-score of 1.3 and there is therefore no evidence of osteoporosis or osteopenia here. IMPRESSION: 1. There is no evidence of osteoporosis or osteopenia. 2. FRAX analysis yields a 10-year probability of major osteoporotic fracture of 7.6% and a 10-year probability of hip fracture of 0.5%. Code 36982 Dictating Physician: ??RUDOLPH QUINTERO MD Electronically Signed by: ??RUDOLPH QUINTERO MD Dic Date/Time: ??06/02/23 08 Sign date/Time: ??06/02/23 0801 Procedure Note Rudolph Quintero MD - 01/02/2024 [facility] Diagnostic Imaging Department [address] [place] [address] Patient: MARITA BERNAL Augusta HinojosaB./Age/Sex: 1955 - 67 - F Unit#: [id number] Location/Status: SPDIMA/REG CLI [facility] Ordering Physician: WILBERT ADKINS MD Michael Dexa Axial Skeleton - 06/02/23734 Report Status:Signed HISTORY: The patient is a 67-year-old postmenopausal female withclinical concern for metabolic bone disease. FINDINGS: Dual energy x-ray absorptiometry of the lumbar spine and femursis performed. The mean bone mineral density at L1-2 is 1.208 gm/cm2 which is104% of that of young normals and 115% of that of age matched controls. Thisyields a T-score of 0.4 and a Z-score of 1.3 and there is therefore no evidenceof osteoporosis or osteopenia here. The mean bone mineral density of the femurs bilaterally is 1.067 gm/xi9ihmsz is 106% of that of young normals and 118% of that of age matched controls.This yields a T-score of 0.5 and a Z-score of 1.3 and there is therefore noevidence of osteoporosis or osteopenia here. IMPRESSION: 1. There is no evidence of osteoporosis or osteopenia. 2. FRAX analysis yields a 10-year probability of major osteoporoticfracture of 7.6% and a 10-year probability of hip fracture of 0.5%. Code 77027 Dictating Physician: RUDOLPH QUINTERO MD Electronically Signed by: RUDOLPH QUINTERO MD Dic Date/Time: 06/02/23799 Sign date/Time: 06/02/23800 Wilbert Adkins MD IMG BI PROCEDURES from Last 3 Months or Most Recently Relevant to Health Maintenance Care Teams Surgical Elastic Knitter Hand Frame Relationship Specialty Start Date End Date Rudolph Farah MD [address] [place] [address] [place] [address] PCP - General Internal Medicine 07/11/12
--- OUTSIDE RECORDS SUMMARY | 2024-06-18 16:14 | XMS_ITS | Encounter Summary ---
Author Organization [place] [address] Care Team Providers Care Salon Professional Name Role Phone Gregg Farah MD Primary Care Provider [phone] Encounter Details Date Type Department Care Team (Latest Contact Info) Description 03/26/2024 Lab Requisition [facility] - Main Lab [address] [place] [phone] Wilbert Adkins MD [address] [phone] Encounter for gynecological examination (general) (routine) without abnormal findings Social History Tobacco Use Types Packs/Day Years Used Date Smoking Tobacco: Never Assessed Sex and Gender Information Value Date Recorded Sex Assigned at Not on file Gender Identity Not on file Sexual Orientation Not on file documented as of this encounter Plan of Treatment Not on file documented as of this encounter Procedures Procedure Name Priority Date/Time Associated Diagnosis Comments PAP SMEAR Routine 03/23/2024 12:00 AM EST Encounter for gynecological examination (general) (routine) without abnormal findings documented in this encounter Results * Pap smear (03/23/2024 12:00 AM EST) Interpretation Negative for intraepithelial lesion or malignancy 03/29/2024 8:39 AM EST [facility] General Categorization Negative 03/29/2024 8:39 AM EST [facility] Other Findings Atrophy 03/29/2024 8:39 AM [facility] Specimen Adequacy Satisfactory for evaluation 03/29/2024 8:39 AM [facility] Pap Methodology Liquid Based Pap Test 03/29/2024 8:39 AM [facility] Disclaimer The Pap test is a screening test which carries an inherent false negative rate. These test results should be correlated with the patient's clinical findings and history. This Pap test was processed using an automated screening system. Technical cytopathology services provided by [facility], at [address] [place] [address] (CLIA # [id number]/Hari Foley MD, Twisting Operator.) 03/29/2024 8:39 AM [facility] Console Pap Interpretation Reported 03/29/2024 8:39 AM [facility] Brushing/Spatula Cervix uteri structure / Unknown 03/23/2024 03/26/2024 7:29 AM EST Wilbert Adkins MD LAB CYTOLOGY ORDERAB LES [facility] [address] [place] [address], documented in this encounter Visit Diagnoses Diagnosis Encounter for gynecological examination (general) (routine) without abnormal findings documented in this encounter Care Teams Salon Professional Relationship Specialty Start Date End Date Gregg Farah MD [address] [place] [phone] PCP - General Internal Medicine 07/11/12 documented as of this encounter
== END 2024-06-18 15:44 | disposition home or self-care (01) ==
PROVIDERS: PCP Family Medicine; Visit Provider Family Medicine
DX: R21 Rash and other nonspecific skin eruption (principal)

== ENCOUNTER 2024-06-18 15:45 | Outpatient (REF) | payer OTHER, SELFPAY ==
--- OUTSIDE RECORDS SUMMARY | 2024-06-18 17:05 | XMS_ITS | Encounter Summary ---
Author Organization [facility] [place] [address] Care Team Providers Care Sawmill Supervisor Name Role Phone Gregg Farah MD Primary Care Provider [phone] Encounter Details Date Type Department Care Team (Latest Contact Info) Description 03/26/2024 Lab Requisition [facility] - Main Lab [address] [place] [phone] Wilbert Adkins MD [address] [phone] Encounter for gynecological examination (general) (routine) without [...] lesion or malignancy 03/29/2024 8:39 AM EST [facility] General Categorization Negative 03/29/2024 8:39 AM EST [facility] Other Findings Atrophy 03/29/2024 8:[address] [facility] Specimen Adequacy Satisfactory for evaluation 03/29/2024 8:[address] [facility] Pap Methodology Liquid Based Pap Test 03/29/2024 8:[address] [facility] Disclaimer The Pap test is a screening test which carries an inherent false negative rate. These test results should be correlated with the patient's clinical findings and history. This Pap test was processed using an automated screening system. Technical cytopathology services provided by [facility], at [address] [place] [address] (CLIA # [id number]/Hari Foley MD, Welder Fitter.) 03/29/2024 8:[address] [facility] Console Pap Interpretation Reported 03/29/2024 8:[address] [facility] Brushing/Spatula Cervix uteri structure / Unknown 03/23/2024 03/26/2024 7:29 AM EST Wilbert Adkins MD LAB CYTOLOGY ORDERAB LES [facility] [address] [place] [address], documented in this encounter Visit Diagnoses Diagnosis Encounter for gynecological examination (general) (routine) without abnormal findings documented in this encounter Care Teams Sawmill Supervisor Relationship Specialty Start Date End Date Gregg Farah MD [address] [place] [phone] PCP - General Internal Medicine 07/11/12 documented as of this encounter
--- OUTSIDE RECORDS SUMMARY | 2024-06-18 17:05 | XMS_ITS | Clinical Summary ---
Author Organization [facility] [place] [address] Care Team Providers Care Data Support Analyst Name Role Phone Rudolph Farah MD Primary Care Provider [phone] Encounters Date Type Department Care Team Description 03/26/2024 Lab Requisition [facility] - Main Lab 299 [facility] [place] [address] Wilbert Adkins MD Encounter for [...] gynecological examination (general) (routine) without abnormal findings [facility] SCREENING DIGITAL Routine 06/02/2023 8:11 AM EST Encounter for screening mammogram for malignant neoplasm of breast [facility] DEXA AXIAL SKELETON Routine 06/02/2023 8:01 AM EST Encounter for screening for osteoporosis from Last 3 Months or Most Recently Relevant to Health Maintenance Results * Pap smear (03/23/2024 12:00 AM EST) Interpretation Negative for intraepithelial lesion or malignancy 03/29/2024 8:[address] [facility] General Categorization Negative 03/29/2024 8:[address] [facility] Other Findings Atrophy 03/29/2024 8:39 [...] screening system. Technical cytopathology services provided by [facility], at [address] [place] [address] (IA # [id number]/Hari Foley MD, Lead Oracle Developer.) 03/29/2024 8:39 AM EST [facility] Console Pap Interpretation Reported 03/29/2024 8:39 AM EST [facility] Brushing/Spatula Cervix uteri structure / Unknown 03/23/2024 03/26/2024 7:29 AM EST Wilbert Adkins MD LAB CYTOLOGY ORDERAB LES [facility] [address] [place] [address], * MICHAEL SCREENING DIGITAL (06/02/2023 8:11 AM EST) Anatomical Region Laterality Modality Mammography 06/02/2023 7:02 AM EST Narrative 06/02/2023 8:11 AM [facility] Diagnostic Imaging Department [address] [place] [address] Patient: ??MARITA BERNAL ?/Age/Sex: 1955 Unit#: ??[id number] ? Location/Status: ??SPDIMAM/REG CLI ? Mnemonic/Ordering Site: ??DIGSC/SPMAM Ordering Physician: ??WILBERT ADKINS MD [facility] Screening Digital - 06/02/23 - 722 Report Status:Signed EXAM: [facility] Screening Digital EXAM DATE AND TIME: 06/02/2023 7:24 AM HISTORY: ??Annual screening COMPARISON: ??None TECHNIQUE: Bilateral digital breast tomosynthesis was performed in the CC and MLO projections. Computer aided detection with [employer] 3D 3.1 was employed. TISSUE DENSITY: b. [...] Procedure Note Brenda Mackenzie MD - 01/02/2024 [facility] Diagnostic Imaging Department [address] [place] [id number] Patient: MARITA BERNAL./Age/Sex: 1955 - 67 - F Unit#: [id number] Location/Status: [facility] CLI Mnemonic/Ordering Site: [facility] Ordering Physician: WILBERT ADKINS MD Michael Screening Digital - 06/02/[address] Report Status:Signed EXAM: [facility] Screening Digital EXAM DATE AND TIME: 06/02/2023 7:24 AM HISTORY: Annual screening COMPARISON: None TECHNIQUE: Bilateral digital breast tomosynthesis was performed in the CCand MLO projections. Computer aided detection with [employer] 3D 3.1was employed. TISSUE DENSITY: b. There [...] Wilbert Adkins MD IMG BI PROCEDURES * [facility] DEXA AXIAL SKELETON (06/02/2023 8:01 AM EST) Anatomical Region Laterality Modality Mammography 06/02/2023 7:04 AM EST Narrative 06/02/2023 8:01 AM EST [facility] Diagnostic Imaging Department [address] [place] [address] Patient: ??MARITA BERNAL ?/Age/Sex: 1955 - 67 - F Unit#: ??[id number] ? Location/Status: ??SPDIMAM/REG CLI ? Mnemonic/Ordering Site: [...] probability of hip fracture of 0.5%. Code 60163 Dictating Physician: ??RUDOLPH QUINTERO MD Electronically Signed by: ??RUDOLPH QUINTERO MD Dic Date/Time: ??06/02/23 08 Sign date/Time: ??06/02/23 0801 Procedure Note Rudolph Quintero MD - 01/02/2024 [facility] Diagnostic Imaging Department [address] [place] [address] Patient: MARITA BERNAL Augusta HinojosaB./Age/Sex: 1955 - 67 - F Unit#: [id number] Location/Status: SPDIMA/REG CLI [facility] Ordering Physician: WILBERT ADKINS MD Michael [...] density of the femurs bilaterally is 1.067 gm/bd3bxqch is 106% of that of young normals [...] probability of hip fracture of 0.5%. Code 46754 Dictating Physician: RUDOLPH QUINTERO MD Electronically Signed by: RUDOLPH QUINTERO MD Dic Date/Time: 06/02/23799 Sign date/Time: 06/02/23800 Wilbert Adkins MD IMG BI PROCEDURES from Last 3 Months or Most Recently Relevant to Health Maintenance Care Teams Data Support Analyst Relationship Specialty Start Date End Date Rudolph Farah MD [address] [place] [address] [place] [phone] PCP - General Internal Medicine 07/11/12
[2024-06-18 17:37] LABS: MANUAL DIFF FLAG NO
[2024-06-18 17:55] LABS: Appearance Urine Clear; Color Urine Dark Yellow; Glucose Urine UA Negative (Negative); Leukocyte Esterase Urine Negative (Negative); Nitrite Urine Negative (Negative); Specific Gravity - Urine >= 1.030 (1.005-1.025); Urine Blood Negative (Negative); Urine Ketones Trace mg/dL (Negative); Urine Protein Trace mg/dL (Neg-Trace)
[2024-06-18 17:57] LABS: Basophils Absolute Auto 0.1 X10*3/uL (0.0-0.2); Basophils Percent Auto 0.7 % (0-2); Eosinophils Absolute Auto 0.4 X10*3/uL (0.0-0.4); Eosinophils Percent Auto 4.9 % (0-4); Hematocrit 37.6 % (37.0-47.0); Hemoglobin 13.1 g/dl (12.0-16.0); Imm Gran Abs Auto 0.03 X10*3/uL (0.00-0.03); Imm Gran Pct Auto 0.4 % (0.0-0.4); Lymphocytes Absolute Auto 1.9 X10*3/uL (1.2-4.9); Lymphocytes Percent Auto 22.2 % (20-40); Mean Corpuscular HGB Conc 34.8 g/dl (31.0-35.0); Mean Corpuscular Hemoglobin 31.3 pg (27.0-33.0); Mean Corpuscular Volume 89.7 fL (80.0-98.0); Mean Platelet Volume 9.9 fL (9.4-12.3); Monocytes Absolute Auto 0.6 X10*3/uL (0.1-1.2); Monocytes Percent Auto 6.9 % (2-11); Neutrophils Absolute Auto 5.5 x10*3/uL (2.0-8.3); Neutrophils Percent Auto 64.9 % (45-73); Platelet Count 417 X10*3/uL (160-400); Red Blood Count 4.19 X10*6/uL (4.20-5.50); White Blood Count 8.5 X10*3/uL (4.8-10.8)
[2024-06-18 18:09] LABS: Alanine Aminotransferase 28 U/L (0-31); Alkaline Phosphatase 73 U/L (39-117); Anion Gap 9 (12-20); Aspartate Amino Transferase 27 U/L (5-31); Bilirubin Total 0.5 mg/dL (0.0-1.0); Blood Urea Nitrogen 11 mg/dL (9-16); Calcium 8.9 mg/dL (8.4-10.2); Carbon Dioxide 28 mmol/L (22-29); Chloride 107 mmol/L (96-108); Estimated Glomerular Filt Rate > 60; Glucose Random 94 mg/dL (60-115); Potassium 3.3 mmol/L (3.3-5.1); Sodium 141 mmol/L (135-145); Total Protein 7.2 g/dL (6.5-8.0)
[2024-06-18 18:35] LABS: Erythrocyte Sedimentation Rate 10 MM/HR (0-20)
[2024-06-19 10:43] LABS: CRP High Sensitivity 1.9 mg/L
== END 2024-06-18 15:46 | disposition home or self-care (01) ==
LOC: HO.WFDLDS 15:45
PROVIDERS: Visit Provider Family Medicine
DX: Z00.00 Encounter for general adult medical examination without abnormal findings (principal); R21 Rash and other nonspecific skin eruption
CPT/HCPCS: 36415; 80053; 81003; 85025; 85652; 86141

== ENCOUNTER 2024-07-06 11:36 | Outpatient (AMB) | payer OTHER, SELFPAY ==
--- NOTE | 2024-07-06 11:38 | MHC.PC.OV ---
Vital Signs 07/06/24 11:43 Height 5 ft 6 in Weight 189 lb 8 oz BMI 30.6 BP 130/70 Blood Pressure Location Lt brachial Position Sitting Respiration 12 Pulse 62 Pulse Source Pulse Oximeter Temp 97.9 F Temp Source Oral Pulse Oximetry (%) 97 Oxygen Delivery Method Room Air Intake Visit Reasons: f/u dysuria, labs Intake Note: follow up labs Wrecker Operator Required: No Allergies Seasonal Allergies Allergy (Intermediate, Verified 07/06/24 11:39) Runny Nose amoxicillin Allergy (Mild, Verified 07/06/24 11:39) Rash Medication List - Last Reconciled 07/06/24 by Wilbert Day MD atenolol 50 mg PO DAILY 90 days betamethasone dipropionate 0.05% 1 appl topical DAILY PRN cholecalciferol (vitamin D3) 50 mcg PO DAILY 90 days ciclopirox 0.77% 1 appl topical BID clobetasol 0.05% 1 appl topical DAILY 90 days epinephrine (EpiPen 2-Indra) 0.3 mg (0.3 mL) IM Q4H PRN 30 days estradiol 0.01%(0.1mg/gram) 1 appful vaginal 2XW famotidine 40 mg PO DAILY fluticasone propionate 110 mcg/actuation (Flovent HFA) 1 puff inhalation Q12H 30 days hydrochlorothiazide 25 mg PO DAILY ketoconazole 2% topical levothyroxine 75 mcg PO DAILY lorazepam 1 mg PO BEDTIME PRN 30 days omeprazole 20 mg PO BID prednisone 4 tabs daily for 4 days, 3 tabs daily for 2 days, 2 tabs daily for 2 days, 1 tab daily for 2 days PO daily; 10 days rizatriptan 10 mg PO DAILY PRN 28 days triamcinolone acetonide 0.025% 1 appl topical DAILY zinc sulfate (Orazinc) 50 mg PO .2 times weekly Tobacco use date assessed: 07/01/23 Dental Screening Dental Screen Date: 07/01/23 HPI f/u dysuria, labs HPI Details 68 y/o female presents to f/u dysuria, labs. Ongoing complaints of a rash. Had made a referral to immunology and pt notes they had contacted her. Pt notes s/p fall and R hand pain. PFSH Medical History Subarachnoid hemorrhage Hyperthyroidism Hypertension Surgical History Hx of cholecystectomy Family History Father Hypertension Social History Household Members: Spouse Both parents involved: No Caregiver staying overnight: No Housing: House Are you a primary personal care aid to a significant other at home: No Do you presently have visiting nurse or other home services: No 75 years or older and lives alone: No Alcohol intake: never Patient Tobacco Use Status: Never used Tobacco e-Cigarette/Vaping Use: Never Used Second Hand Smoke Exposure: No service: No Current occupational status: employed 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 Current occupational exposures/hazards: No Cognitive needs: No Hearing needs: No Vision needs: No Questionnaire Thrive Questionnaire Date Thrive assessed: 06/18/24 I am a: Patient What is your living situation today?: I have a steady place to live Within the past 12 months, did the food you bought not last and you didn't have the money to get more?: Never true Within the past 12 months, did you worry whether your food would run out before you got money to buy more?: Never true Do you have trouble paying for medicines?: No Do you have trouble getting transportation to medical appointments?: No Do you have trouble paying your heating and electricity bill?: No Do you have trouble taking care of your child, family member or friend?: No Do you have trouble with day-to-day activities such as bathing, preparing meals, shopping, managing finances, etc.?: No Are you currently unemployed and looking for a job?: No Are you interested in more education?: No Please select the resources that you would like help with: None Currently or been in a relationship where the following occur: No concerns reported THRIVE Score: 0 GLYNN-7 AMB Questionnaire GLYNN-7 Date GLYNN - 7 assessed: 05/15/24 Source: Developed by Drs. Bob Hedrick, Yudith Navarrete, Navneet Keenan and colleagues, with an educational cydney from [employer]. Review of Systems Const Denies chills, Denies fatigue, Denies fever(s), Denies headache(s) and Denies weakness ENT Denies dizziness and Denies headache(s) Card Denies dyspnea Resp Denies cough, Denies dyspnea, Denies wheezing and Denies other (shortness of breath) Musc Denies numbness and Denies tingling Neuro Denies dizziness, Denies headache(s), Denies numbness, Denies tingling and Denies weakness Psych Denies anxiety and Denies depression Endo Denies fatigue Aller/Immun Denies wheezing Physical exam (Primary Care) Vital Signs: Last Vital Signs Temp 97.9 F 07/06/24 11:43 Pulse 62 07/06/24 11:43 Resp 12 07/06/24 11:43 BP 130/70 07/06/24 11:43 Pulse Ox 97 07/06/24 11:43 Oxygen Delivery Method Room Air 07/06/24 11:43 BMI result Body Mass Index 30.6 Tobacco/Smoking Status: Tobacco use Status Tobacco use date assessed 07/01/23 07/06/24 11:47 Patient Tobacco Use Status Never used Tobacco 07/06/24 11:47 e-Cigarette/Vaping Use Never Used 07/06/24 11:47 Thrive Assessment: Date of Thrive Assessment Date Thrive assessed 06/18/24 07/06/24 11:47 Currently or been in a relationship where the following occur: No concerns reported Const General: well developed; No acute distress Nutritional Appearance: well nourished Orientation/consciousness: patient oriented x3 [facility]: Yes normocephalic and Yes atraumatic Eyes General: appearance normal, both eyes and all related structures Pupils: Equal, round and reactive pupils present EOM: EOMs intact bilaterally Resp Effort & Inspection: normal respiratory effort Neuro General: patient oriented x3 and gait normal Cranial nerves: Yes Equal, round and reactive pupils present Psych Affect: normal affect Coding Level of Care Code Est Pt Level 4 (36063) Diagnoses Dysuria R30.0 Right hand pain M79.641 Rash R21 Assessment & Plan Assessment & Plan (1) Dysuria: Code(s): R30.0 - Dysuria Category: Medical Plan: Ongoing?intermittent?dysuria. Reviewed?recent?urinalysis?patient?which?is?fairly?unremarkable?though?maximally?concentrated Will?recheck?urine?studies?today Encouraged?increased?hydration If?she?is?still?having?trouble?will?refer?to?Urology (2) Right hand pain: Code(s): M79.641 - Pain in right hand Category: Medical Plan: Acute?on?chronic?hand?pain At?already?ordered?an?x-ray?of?her?right?hand?in?April.??She?has?not?gotten?this?done?yet. Patient?fell?on?outstretched?hand?recently?on?the?ice. She?can?get?x-ray?done?and?I?will?call?her?of?action?is?required. (3) Rash: Code(s): R21 - Rash and other nonspecific skin eruption Category: Medical Plan: Rash?has?improved.??She?notes?that?she?still?has?low-level?symptoms?of?itchiness/irritation. Hydrate?well Can?use?a?moisturizer?that?has?no?dyes?or?perfumes Avoid excess?heat Can?use?Benadryl She?has?an?appointment?with?immunology Orders: Orders UA and rflx microscopic Today R30.0 - Dysuria, Z00.00 - Encounter for general adult medical examination without abnormal findings Urine Culture Today R30.0 - Dysuria
[2024-07-06 11:43] VITALS: BP 130/70; PULSE 62; RESP 12; TEMP 36.6; O2SAT 97; BMI 30.6
--- OUTSIDE RECORDS SUMMARY | 2024-07-06 12:41 | XMS_ITS | Encounter Summary ---
Author Organization [facility] [place] [address] Care Team Providers Care Services Tech Name Role Phone Gregg Farah MD Primary Care Provider [phone] Encounter Details Date Type Department Care Team (Latest Contact Info) Description 03/26/2024 Lab Requisition [facility] - Main Lab [address] [place] [phone] Wilbert Adkins MD [address] [phone] Encounter for gynecological examination (general) (routine) without abnormal findings Social History Tobacco Use Types Packs/Day Years Used Date Smoking Tobacco: Never Assessed Comments Unknown Sex and Gender Information Value Date Recorded Sex Assigned at Not on file Legal Sex Female 10:00 PM EST Gender Identity Not on file Sexual Orientation [...] lesion or malignancy 03/29/2024 8:39 AM EST [facility] General Categorization Negative 03/29/2024 8:39 AM EST [facility] Other Findings Atrophy 03/29/2024 8:39 AM [facility] Specimen Adequacy Satisfactory for evaluation 03/29/2024 8:39 AM [facility] Pap Methodology Liquid Based Pap Test 03/29/2024 8:39 AM [facility] Disclaimer The Pap test is a screening test which carries an inherent false negative rate. These test results should be correlated with the patient's clinical findings and history. This Pap test was processed using an automated screening system. Technical cytopathology services provided by [facility], at [address] [place] [address] (CLIA # [id number]/Hari Foley MD, Meter Repairer.) 03/29/2024 8:39 AM [facility] Console Pap Interpretation Reported 03/29/2024 8:39 AM [facility] Brushing/Spatula Cervix uteri structure / Unknown 03/23/2024 03/26/2024 7:29 AM EST us Wilbert Adkins MD LAB CYTOLOGY ORDERABLES Final Result [facility] [address] [place] [address], documented in this encounter Visit Diagnoses Diagnosis Encounter for gynecological examination (general) (routine) without abnormal findings documented in this encounter Care Teams Services Tech Relationship Specialty Start Date End Date Gregg Farah MD [address] [place] [phone] PCP - General Internal Medicine 07/11/12 documented as of this encounter
--- OUTSIDE RECORDS SUMMARY | 2024-07-06 12:41 | XMS_ITS | Clinical Summary ---
Author Organization [facility] [place] [address] Care Team Providers Care Test Lead Application Testing Name Role Phone Rudolph Farah MD Primary Care Provider [phone] Social History Tobacco Use Types Packs/Day Years [...] 06/21/2019 Social Influencers of Health Screening 06/21/2019 Pneumococcal Vaccine: 50+ Ye ars (2 of 2 - PPSV23) 07/31/2020 08/01/2019 Falls Risk Assessment 10/14/2020 COVID-19 Vaccine ( - 2023-2 5 season) 2024 Influenza Vaccine [...] patient's age to complete this topic Meningococcal B Vacine Aged Out No lo nger eligible based on patient's age to complete this topic RSV Immunization Patients Un chance 20 months Aged Out No longer eligible b ased on patient's age to complete this topic Varicella Vaccines Aged Out No longer eligible based on patient's age to complete this topic Procedures Procedure Name Priority Date/Time Associated Diagnosis Comments [facility] SCREENING DIGITAL Routine 06/02/2023 8:11 AM EST Encounter for screening mammogram for malignant neoplasm of breast [facility] DEXA AXIAL SKELETON Routine 06/02/2023 8:01 AM EST Encounter for screening for osteoporosis from Last 3 Months or Most Recently Relevant to Health Maintenance Results * [facility] SCREENING DIGITAL (06/02/2023 8:11 AM EST) Anatomical Region Laterality Modality Mammography 06/02/2023 7:02 AM EST Narrative 06/02/2023 8:11 AM EST [facility] Diagnostic Imaging Department [address] [place] [address] Patient: ??MARITA BERNAL ?/Age/Sex: 1955 Unit#: ??[id number] ? Location/Status: ??SPDIMAM/REG CLI ? Mnemonic/Ordering Site: ??DIGSC/SPMAM Ordering Physician: ??WILBERT ADKINS MD Michael Screening Digital - 06/02/23 - 0723 Report Status:Signed EXAM: [facility] Screening Digital EXAM DATE AND TIME: 06/02/2023 7:24 AM HISTORY: ??Annual screening COMPARISON: ??None TECHNIQUE: Bilateral digital breast tomosynthesis was performed in the CC and MLO projections. Computer aided detection with [employer] 3D 3.1 was employed. TISSUE DENSITY: b. [...] Procedure Note Brenda Mackenzie MD - 01/02/2024 [facility] Diagnostic Imaging Department [address] [place], [place] [id number] Patient: MARITA BERNAL D.O.B./Age/Sex: 1955 - 67 - F Unit#: [id number] Location/Status: [facility]/REG CLI Mnemonic/Ordering Site: [facility] Ordering Physician: WILBERT ADKINS MD Michael Screening Digital - 06/02/23 - 722 Report Status:Signed EXAM: [facility] Screening Digital EXAM DATE AND TIME: 06/02/2023 7:24 AM HISTORY: Annual screening COMPARISON: None TECHNIQUE: Bilateral digital breast tomosynthesis was performed in the CCand MLO projections. Computer aided detection with [employer] 3D 3.1was employed. TISSUE DENSITY: b. There [...] 06/02/23810 Wilbert Adkins MD IMG BI PROCEDURES Final Result * [facility] DEXA AXIAL SKELETON (06/02/2023 8:01 AM EST) Anatomical Region Laterality Modality Mammography 06/02/2023 7:04 AM EST Narrative 06/02/2023 8:01 AM EST [facility] Diagnostic Imaging Department [address] [place] [address] Patient: ??MARITA BERNAL ?/Age/Sex: 1955 - 67 - F Unit#: ??[id number] ? Location/Status: ??SPDIMAM/REG CLI ? Mnemonic/Ordering Site: ??[facility]/SPMAM Ordering Physician: ??WILBERT ADKINS MD Michael Dexa Axial Skeleton - 06/02/23 - 734 Report Status:Signed HISTORY: ??The patient is a [...] probability of hip fracture of 0.5%. Code 62912 Dictating Physician: ??RUDOLPH QUINTERO MD Electronically Signed by: ??RUDOLPH QUINTERO MD Dic Date/Time: ??06/02/23799 Sign date/Time: ??06/02/23 08 Procedure Note Rudolph Quintero MD - 01/02/2024 [facility] Diagnostic Imaging Department [address] [place] [address] Patient: MARITA BERNAL Augusta HinojosaB./Age/Sex: 1955 - 67 - F Unit#: [id number] [facility] Ordering Physician: WILBERT ADKINS MD Michael Dexa [...] density of the femurs bilaterally is 1.067 gm/ah3efchi is 106% of that of young normals [...] probability of hip fracture of 0.5%. Code 15619 Dictating Physician: RUDOLPH QUINTERO MD Electronically Signed by: RUDOLPH QUINTERO MD Dic Date/Time: 06/02/23799 Sign date/Time: 06/02/23800 Wilbert Adkins MD IMG BI PROCEDURES Final Result from Last 3 Months or Most Recently Relevant to Health Maintenance [place] [place] [id number] [employer] Care Teams Test Lead Application Testing Relationship Specialty Start Date End Date Rudolph Farah MD [address] [place] [phone] PCP - General Internal Medicine 07/11/12
== END 2024-07-06 12:40 | disposition home or self-care (01) ==
PROVIDERS: PCP Family Medicine; Visit Provider Family Medicine
DX: R30.0 Dysuria (principal); M79.641 Pain in right hand; R21 Rash and other nonspecific skin eruption

== ENCOUNTER 2024-07-06 11:36 | Outpatient (REF) | payer OTHER, SELFPAY ==
--- OUTSIDE RECORDS SUMMARY | 2024-07-06 13:10 | XMS_ITS | Encounter Summary ---
Author Organization [facility] [place] [address] Care Team Providers Care Hole Digger Operator Name Role Phone Gregg Farah MD Primary Care Provider [phone] Encounter Details Date Type Department Care Team (Latest Contact Info) Description 03/26/2024 Lab Requisition [facility] - Main Lab [address] [place] [phone] Wilbert Adkins MD [address] [phone] Encounter for gynecological examination (general) (routine) without [...] lesion or malignancy 03/29/2024 8:39 AM EST [facility] General Categorization Negative 03/29/2024 8:39 AM EST [facility] Other Findings Atrophy 03/29/2024 8:39 AM [facility] Specimen Adequacy Satisfactory for evaluation 03/29/2024 8:39 AM [facility] Pap Methodology Liquid Based Pap Test 03/29/2024 8:39 AM [facility] Disclaimer The Pap test is a screening test which carries an inherent false negative rate. These test results should be correlated with the patient's clinical findings and history. This Pap test was processed using an automated screening system. Technical cytopathology services provided by [facility], at [address] [place] [address] (CLIA # [id number]/Hari Foley MD, Quarter Lining Smoother.) 03/29/2024 8:39 AM [facility] Console Pap Interpretation Reported 03/29/2024 8:39 AM [facility] Brushing/Spatula Cervix uteri structure / Unknown 03/23/2024 03/26/2024 7:29 AM EST us Wilbert Adkins MD LAB CYTOLOGY ORDERABLES Final Result [facility] [address] [place] [address], documented in this encounter Visit Diagnoses Diagnosis Encounter for gynecological examination (general) (routine) without abnormal findings documented in this encounter Care Teams Hole Digger Operator Relationship Specialty Start Date End Date Gregg Farah MD [address] [place] [phone] PCP - General Internal Medicine 07/11/12 documented as of this encounter
--- OUTSIDE RECORDS SUMMARY | 2024-07-06 13:10 | XMS_ITS | Clinical Summary ---
Author Organization [facility] [place] [address] Care Team Providers Care Collection Correspondent Name Role Phone Rudolph Farah MD Primary Care Provider [phone] Social History Tobacco Use Types Packs/Day Years [...] Procedure Name Priority Date/Time Associated Diagnosis Comments [facility] SCREENING DIGITAL Routine 06/02/2023 8:11 AM EST Encounter for screening mammogram for malignant neoplasm of breast [facility] DEXA AXIAL SKELETON Routine 06/02/2023 8:01 AM EST Encounter for screening for osteoporosis from Last 3 Months or Most Recently Relevant to Health Maintenance Results * [facility] SCREENING DIGITAL (06/02/2023 8:11 AM EST) Anatomical Region Laterality Modality Mammography 06/02/2023 7:02 AM EST Narrative 06/02/2023 8:11 AM EST [facility] Diagnostic Imaging Department [address] [place] [address] Patient: ??MARITA BERNAL ?/Age/Sex: 1955 Unit#: ??[id number] ? Location/Status: ??SPDIMAM/REG CLI ? Mnemonic/Ordering Site: ??DIGSC/SPMAM Ordering Physician: ??WILBERT ADKINS MD Michael Screening Digital - 06/02/23 - 0723 Report Status:Signed EXAM: [facility] Screening Digital EXAM DATE AND TIME: 06/02/2023 7:24 AM HISTORY: ??Annual screening COMPARISON: ??None TECHNIQUE: Bilateral digital breast tomosynthesis was performed in the CC and MLO projections. Computer aided detection with [employer] 3D 3.1 was employed. TISSUE DENSITY: b. [...] Procedure Note Brenda Mackenzie MD - 01/02/2024 [facility] Diagnostic Imaging Department [address] [place], [place] [id number] Patient: MARITA BERNAL D.O.B./Age/Sex: 1955 - 67 - F Unit#: [id number] Location/Status: [facility]/REG CLI Mnemonic/Ordering Site: [facility] Ordering Physician: WILBERT ADKINS MD Michael Screening Digital - 06/02/23 - 722 Report Status:Signed EXAM: [facility] Screening Digital EXAM DATE AND TIME: 06/02/2023 7:24 AM HISTORY: Annual screening COMPARISON: None TECHNIQUE: Bilateral digital breast tomosynthesis was performed in the CCand MLO projections. Computer aided detection with [employer] 3D 3.1was employed. TISSUE DENSITY: b. There [...] MD IMG BI PROCEDURES Final Result * [facility] DEXA AXIAL SKELETON (06/02/2023 8:01 AM EST) Anatomical Region Laterality Modality Mammography 06/02/2023 7:04 AM EST Narrative 06/02/2023 8:01 AM EST [facility] Diagnostic Imaging Department [address] [place] [address] Patient: ??MARITA BERNAL ?/Age/Sex: 1955 - 67 - F Unit#: ??[id number] ? Location/Status: ??SPDIMAM/REG CLI ? Mnemonic/Ordering Site: [...] probability of hip fracture of 0.5%. Code 24105 Dictating Physician: ??RUDOLPH QUINTERO MD Electronically Signed by: ??RUDOLPH QUINTERO MD Dic Date/Time: ??06/02/23799 Sign date/Time: ??06/02/23 08 Procedure Note Rudolph Quintero MD - 01/02/2024 [facility] Diagnostic Imaging Department [address] [place] [address] Patient: MARITA BERNAL Augusta HinojosaB./Age/Sex: 1955 - 67 - F Unit#: [id number] [facility] Ordering Physician: WILBERT ADKINS MD Michael [...] density of the femurs bilaterally is 1.067 gm/ou2oqsax is 106% of that of young normals [...] probability of hip fracture of 0.5%. Code 42263 Dictating Physician: RUDOLPH QUINTERO MD Electronically Signed by: RUDOLPH QUINTERO MD Dic Date/Time: 06/02/23799 Sign date/Time: 06/02/23800 Wilbert Adkins MD IMG BI PROCEDURES Final Result from Last 3 Months or Most Recently Relevant to Health Maintenance [place] [place] [id number] [employer] Care Teams Collection Correspondent Relationship Specialty Start Date End Date Rudolph Farah MD [address] [place] [phone] PCP - General Internal Medicine 07/11/12
[2024-07-06 14:19] LABS: Appearance Urine Clear; Color Urine Dark Yellow; Glucose Urine UA Negative (Negative); Leukocyte Esterase Urine Negative (Negative); Nitrite Urine Negative (Negative); Specific Gravity - Urine >= 1.030 (1.005-1.025); Urine Blood Negative (Negative); Urine Ketones Trace mg/dL (Negative); Urine Protein Trace mg/dL (Neg-Trace)
== END 2024-07-06 11:37 | disposition home or self-care (01) ==
LOC: HO.LAB 11:36
PROVIDERS: PCP Family Medicine; Visit Provider Family Medicine
DX: Z00.00 Encounter for general adult medical examination without abnormal findings (principal); R30.0 Dysuria
CPT/HCPCS: 81003; 87086

== ENCOUNTER 2024-07-10 07:50 | Outpatient (REF) | payer OTHER, SELFPAY ==
--- NOTE | ~2024-07-10 | XR_ITS ---
EXAMINATION: XR HAND 3 OR MORE VIEWS RIGHT HISTORY: M79.644 - Pain in right finger(s) COMPARISON: There are no prior studies available for comparison. FINDINGS: Three views of the right hand are submitted. Osseous mineralization is normal. There is a minimally displaced oblique fracture of the base of the 4th metacarpal. No additional fracture is seen. There is no dislocation The joint spaces are preserved. The soft tissues are unremarkable. XR/XR hand RT min 3V IMPRESSION: Minimally displaced oblique fracture of the base of the 4th metacarpal. Electronically signed by: Bob Odell MD 07/10/2024 08:13 AM [facility]
--- OUTSIDE RECORDS SUMMARY | 2024-07-10 07:53 | XMS_ITS | Encounter Summary ---
Author Organization [facility] [place] [address] Care Team Providers Care Accounting Instructor Name Role Phone Gregg Farah MD Primary Care Provider [phone] Encounter Details Date Type Department Care Team (Latest Contact Info) Description 03/26/2024 Lab Requisition [facility] - Main Lab [address] [place] [phone] Wilbert Adkins MD [address] [phone] Encounter for gynecological examination (general) (routine) without [...] lesion or malignancy 03/29/2024 8:39 AM EST [facility] General Categorization Negative 03/29/2024 8:39 AM EST [facility] Other Findings Atrophy 03/29/2024 8:39 AM [facility] Specimen Adequacy Satisfactory for evaluation 03/29/2024 8:39 AM [facility] Pap Methodology Liquid Based Pap Test 03/29/2024 8:39 AM [facility] Disclaimer The Pap test is a screening test which carries an inherent false negative rate. These test results should be correlated with the patient's clinical findings and history. This Pap test was processed using an automated screening system. Technical cytopathology services provided by [facility], at [address] [place] [address] (CLIA # [id number]/Hari Foley MD, Hospital Recruiter.) 03/29/2024 8:39 AM [facility] Console Pap Interpretation Reported 03/29/2024 8:39 AM [facility] Brushing/Spatula Cervix uteri structure / Unknown 03/23/2024 03/26/2024 7:29 AM EST us Wilbert Adkins MD LAB CYTOLOGY ORDERABLES Final Result [facility] [address] [place] [address], documented in this encounter Visit Diagnoses Diagnosis Encounter for gynecological examination (general) (routine) without abnormal findings documented in this encounter Care Teams Accounting Instructor Relationship Specialty Start Date End Date Gregg Farah MD [address] [place] [phone] PCP - General Internal Medicine 07/11/12 documented as of this encounter
--- OUTSIDE RECORDS SUMMARY | 2024-07-10 07:53 | XMS_ITS | Clinical Summary ---
Author Organization [facility] [place] [address] Care Team Providers Care Materials Mgmt Tech Name Role Phone Rudolph Farah MD Primary Care Provider [phone] Social History Tobacco Use Types Packs/Day Years [...] 2) 10/14/2005 Cholesterol Screening (Lipid Panel) 06/21/2019 Depression Screening 06/21/2019 Hepatitis C Screening 06/21/2019 Social Influencers of Health Screening 06/21/2019 Pneumococcal Vaccine: 50+ Ye ars (2 of 2 - PPSV23) 07/31/2020 08/01/2019 Falls Risk Assessment 10/14/2020 COVID-19 Vaccine (1 - 2023-2 5 season) 2024 Influenza Vaccine (#1) 2024 01/27/2020 Breast Cancer Screening 06/02/2025 06/02/2023 RSV Immunization Patients 60 + Years Old (1 - 1-dose 75+ series) 10/14/2030 Osteoporosis Screening (Bone Density Screening) 06/02/2033 06/02/2023 Colorectal Cancer Screening: Colonoscopy 07/09/2034 07/09/2024 HIB Vaccines Aged Out No longer eligi [...] Procedure Name Priority Date/Time Associated Diagnosis Comments EXTERNAL COLONOSCOPY REPORT Routine 07/09/2024 9:19 AM EST [facility] SCREENING DIGITAL Routine 06/02/2023 8:11 AM EST Encounter for screening mammogram for malignant neoplasm of breast [facility] DEXA AXIAL SKELETON Routine 06/02/2023 8:01 AM EST Encounter for screening for osteoporosis from Last 3 Months or Most Recently Relevant to Health Maintenance Results * External Colonoscopy Report (07/09/2024 9:19 AM EST) Anatomical Region Laterality Modality Endoscopy us Historical Provider MD WRIGHT~PROCEDURE ORDERABLES F inal Result * [facility] SCREENING DIGITAL (06/02/2023 8:11 AM EST) Anatomical Region Laterality Modality Mammography 06/02/2023 7:02 AM EST Narrative 06/02/2023 8:11 AM EST [facility] Diagnostic Imaging Department [address] [place] [address] Patient: ??MRAITA BERNAL ?/Age/Sex: 1955 - - F Unit#: ??[id number] ? Location/Status: ??SPDIMAM/REG CLI ? Mnemonic/Ordering Site: ??DIGSC/SPMAM Ordering Physician: ??WILBERT ADKINS MD [facility] Screening Digital - 06/02/23722 Report Status:Signed EXAM: [facility] Screening Digital EXAM DATE AND TIME: 06/02/2023 7:24 AM HISTORY: ??Annual screening COMPARISON: ??None TECHNIQUE: Bilateral digital breast tomosynthesis was performed in the CC and MLO projections. Computer aided detection with [employer] 3D 3.1 was employed. TISSUE DENSITY: b. [...] Procedure Note Brenda Mackenzie MD - 01/02/2024 [facility] Diagnostic Imaging Department [address] [place] [address] Patient: MARITA BERNAL [place] /Age/Sex: 1955 - 67 - F Unit#: [id number] Location/Status: SPDIMAM/REG CLI Mnemonic/Ordering Site: [facility] Ordering Physician: WILBERT ADKINS MD [facility] Screening Digital - 06/02/23722 Report Status:Signed EXAM: [facility] Screening Digital EXAM DATE AND TIME: 06/02/2023 7:24 AM HISTORY: Annual screening COMPARISON: None TECHNIQUE: Bilateral digital breast tomosynthesis was performed in the CCand MLO projections. Computer aided detection with [employer] 3D 3.1was employed. TISSUE DENSITY: b. There [...] MD Dic Date/Time: 06/02/23808 Sign date/Time: 06/02/23810 us Wilbert Adkins MD IMG BI PROCEDURES Final Result * [facility] DEXA AXIAL SKELETON (06/02/2023 8:01 AM EST) Anatomical Region Laterality Modality Mammography 06/02/2023 7:04 AM EST Narrative 06/02/2023 8:01 AM EST [facility] Diagnostic Imaging Department [address] [place] [address] Patient: ??MARITA BERNAL ?/Age/Sex: 1955 Unit#: ??[id number] ? Location/Status: ??SPDIMAM/REG CLI ? Mnemonic/Ordering Site: [...] probability of hip fracture of 0.5%. Code 42605 Dictating Physician: ??RUDOLPH QUINTERO MD Electronically Signed by: ??RUDOLPH QUINTERO MD Dic Date/Time: ??06/02/23799 Sign date/Time: ??06/02/23800 Procedure Note Rudolph Quintero MD - 01/02/2024 [facility] Diagnostic Imaging Department [address] [place] [address] Patient: MARITA BERNAL Augusta Hernandez./Age/Sex: 1955 - 67 - F Unit#: [id number] Location/Status: [facility] Mnemonic/Ordering Site[facility] Ordering Physician: WILBERT ADKINS MD [facility] Dexa Axial Skeleton - 06/02/2335 Report Status:Signed HISTORY: The patient is a [...] density of the femurs bilaterally is 1.067 gm/wj5ugtbx is 106% of that of young normals [...] probability of hip fracture of 0.5%. Code 73982 Dictating Physician: RUDOLPH QUINTERO MD Electronically Signed by: RUDOLPH QUINTERO MD Dic Date/Time: 06/02/23799 Sign date/Time: 06/02/23800 Wilbert Adkins MD IMG BI PROCEDURES Final Result from Last 3 Months or Most Recently Relevant to Health Maintenance Insurance [address] [place] [address] [employer] D[employer] Care Teams Materials Mgmt Tech Relationship Specialty Start Date End Date Rudolph Farah MD [address] [place] [phone] PCP - General Internal Medicine 07/11/12
== END 2024-07-10 07:51 | disposition home or self-care (01) ==
LOC: HO.XRAY 07:50
PROVIDERS: PCP Family Medicine; Visit Provider Family Medicine
DX: M79.644 Pain in right finger(s) (principal)
CPT/HCPCS: 73130

== ENCOUNTER → 2024-07-10 07:54 | Outpatient (BNV) | payer OTHER, SELFPAY | PROVIDERS: PCP Family Medicine; Visit Provider Radiology Diagnostic Radiology | DX: S62.354K Nondisplaced fracture of shaft of fourth metacarpal bone, right hand, subsequent encounter for fracture with nonunion (principal) | CPT/HCPCS: 73130 ==

== ENCOUNTER 2024-07-13 08:45 | Outpatient (AMB) | payer OTHER, SELFPAY ==
--- NOTE | 2024-07-13 08:54 | MHC.OFFVIS ---
Vital Signs 07/13/24 09:06 Height 5 ft 6 in Weight 189 lb BMI 30.5 Intake Visit Reasons: FC-RT 4th MCP minimally displaced fx, DOI 07/03/24 Intake Note: Marita is a 68 year old right hand dominant female who presents today for a fracture care visit s/p right 4th metacarpal minimally displaced fracture, DOI 07/03/24. Patient reports she slipped on ice falling on her outstretched hand. Complains today of pain along the dorsal aspect of the right hand. Patient states she is not taking anything for pain at this time. Denies numbness, tingling, finger locking. Denies prior injuries or surgeries to the right hand. Allergies Seasonal Allergies Allergy (Intermediate, Verified 07/13/24 08:55) Runny Nose amoxicillin Allergy (Mild, Verified 07/13/24 08:55) Rash PFSH Medical History Subarachnoid hemorrhage Hyperthyroidism Hypertension Surgical History Hx of cholecystectomy Family History Father Hypertension Social History Household Members: Spouse Both parents involved: No Caregiver staying overnight: No Housing: House Are you a primary healthcare administrative assistant to a significant other at home: No Do you presently have visiting nurse or other home services: No 75 years or older and lives alone: No Alcohol intake: never Patient Tobacco Use Status: Never used Tobacco e-Cigarette/Vaping Use: Never Used Second Hand Smoke Exposure: No service: No Current occupational status: employed 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 Neuro: Normal sensation of the tips of all digits of the right hand at this time Vascular: Cap refill brisk Pain: Patient reports significant tenderness to palpation over the right 4th metacarpal Pain with range of motion of the 3rd through 5th digits of the right Skin: No lacerations or abrasions. General: Mild edema noted over the right 4th metacarpal No ecchymosis, erythema, or evidence of infection. Psych: Appears grossly normal Affect normal Attitude cooperative Office Procedures AMB Fracture Care Details: Right 4th metacarpal fracture Fracture Billing Code: Fracture Billing Code Casting/Splints 13138-Cqobfwn Splint Application Procedure code (CPT) selection complete Results Reviewed Results Reviewed: X-rays obtained in the office today and independently reviewed by me, Mike Betts PA-C, demonstrate minimally displaced, oblique fracture of the proximal right 4th metacarpal. Assessment & Plan Assessment & Plan (1) Fracture of fourth metacarpal bone of right hand: Code(s): S62.304A - Unspecified fracture of fourth metacarpal bone, right hand, initial encounter for closed fracture Category: Medical Plan 1. Right 4th metacarpal fracture Date of injury 07/03/2024 Patient was educated about this injury Patient is educated about the typical recovery course At this time, patient is educated that she can be treated conservatively and her injury will not require surgery Patient was placed into a 3 finger ulnar gutter splint at this time Patient is educated on proper splint care and precautions Patient will follow-up in 1 week with repeat x-rays for reassessment, anticipate cast placement at that time, sooner with any acute concerns Orders: Orders XR hand RT min 3V Today M79.641 - Pain in right hand Coding Level of Care Code New Pt Level 3 (01576) Diagnoses Fracture of fourth metacarpal bone of right hand S62.304A CPT Codes Fracture Care - Fracture Billing Code: Fracture Billing Code ([id number]) Splint - CPT: 78968-Bspxxmr Splint Application ([id number])
--- OUTSIDE RECORDS SUMMARY | 2024-07-13 09:02 | XMS_ITS | Clinical Summary ---
Author Organization [facility] [place] [address] Care Team Providers Care Surveyor Geodetic Name Role Phone Rudolph Farah MD Primary Care Provider [phone] Social History Tobacco Use Types Packs/Day Years [...] COLONOSCOPY REPORT Routine 07/09/2024 9:19 AM EST [facility] SCREENING DIGITAL Routine 06/02/2023 8:11 AM EST Encounter for screening mammogram for malignant neoplasm of breast [facility] DEXA AXIAL SKELETON Routine 06/02/2023 8:01 AM EST Encounter for screening for osteoporosis from Last 3 Months or Most Recently Relevant to Health Maintenance Results * External Colonoscopy Report (07/09/2024 9:19 AM EST) Anatomical Region Laterality Modality Endoscopy us Historical Provider MD WRIGHT~PROCEDURE ORDERABLES F inal Result * [facility] SCREENING DIGITAL (06/02/2023 8:11 AM EST) Anatomical Region Laterality Modality Mammography 06/02/2023 7:02 AM EST Narrative 06/02/2023 8:11 AM EST [facility] Diagnostic Imaging Department [address] [place] [address] Patient: ??MARITA BERNAL ?/Age/Sex: 1955 - - F Unit#: ??[id number] ? Location/Status: ??SPDIMAM/REG CLI ? Mnemonic/Ordering Site: ??DIGSC/SPMAM Ordering Physician: ??WILBERT ADKINS MD [facility] Screening Digital - 06/02/23722 Report Status:Signed EXAM: [facility] Screening Digital EXAM DATE AND TIME: 06/02/2023 7:24 AM HISTORY: ??Annual screening COMPARISON: ??None TECHNIQUE: Bilateral digital breast tomosynthesis was performed in the CC and MLO projections. Computer aided detection with [employer] 3D 3.1 was employed. TISSUE DENSITY: b. [...] 01/02/2024 [facility] Diagnostic Imaging Department [address] [place] [address] Patient: MARITA BERNAL [place] /Age/Sex: 1955 - 67 - F Unit#: [id number] Location/Status: SPDIMAM/REG CLI Mnemonic/Ordering Site: [facility] Ordering Physician: WILBERT ADKINS MD [facility] Screening Digital - 06/02/23722 Report Status:Signed EXAM: [facility] Screening Digital EXAM DATE AND TIME: 06/02/2023 7:24 AM HISTORY: Annual screening COMPARISON: None TECHNIQUE: Bilateral digital breast tomosynthesis was performed in the CCand MLO projections. Computer aided detection with [employer] 3D 3.1was employed. TISSUE DENSITY: b. There [...] MD IMG BI PROCEDURES Final Result * [facility] DEXA AXIAL SKELETON (06/02/2023 8:01 AM EST) Anatomical Region Laterality Modality Mammography 06/02/2023 7:04 AM EST Narrative 06/02/2023 8:01 AM EST [facility] Diagnostic Imaging Department [address] [place] [address] Patient: ??MARITA BERNAL ?/Age/Sex: 1955 Unit#: ??[id number] ? Location/Status: ??SPDIMAM/REG CLI ? Mnemonic/Ordering Site: [...] probability of hip fracture of 0.5%. Code 97914 Dictating Physician: ??RUDOLPH QUINTERO MD Electronically Signed by: ??RUDOLPH QUINTERO MD Dic Date/Time: ??06/02/23799 Sign date/Time: ??06/02/23800 Procedure Note Rudolph Quintero MD - 01/02/2024 [facility] Diagnostic Imaging Department [address] [place] [address] Patient: MARITA BERNAL Augusta Hernandez./Age/Sex: 1955 - 67 - F Unit#: [id number] Location/Status: [facility]emonic[facility] Ordering Physician: WILBERT ADKINS MD [facility] Dexa Axial Skeleton - 06/02/2335 Report Status:Signed [...] density of the femurs bilaterally is 1.067 gm/jp7ctqwk is 106% of that of young normals [...] probability of hip fracture of 0.5%. Code 89305 Dictating Physician: RUDOLPH QUINTERO MD Electronically Signed by: RUDOLPH QUINTERO MD Dic Date/Time: 06/02/23799 Sign date/Time: 06/02/23800 Wilbert Adkins MD IMG BI PROCEDURES Final Result from Last 3 Months or Most Recently Relevant to Health Maintenance Insurance [address] [place] [address] [employer] D[employer] Care Teams Surveyor Geodetic Relationship Specialty Start Date End Date Rudolph Farah MD [address] [place] [phone] PCP - General Internal Medicine 07/11/12
--- OUTSIDE RECORDS SUMMARY | 2024-07-13 09:02 | XMS_ITS | Encounter Summary ---
Author Organization [facility] [place] [address] Care Team Providers Care Tobacco Checkout Clerk Name Role Phone Gregg Farah MD Primary Care Provider [phone] Encounter Details Date Type Department Care Team (Latest Contact Info) Description 03/26/[address] [facility] - Main Lab [address] [place] [phone] Wilbert Adkins MD [address] [phone] Encounter for gynecological examination (general) (routine) without [...] lesion or malignancy 03/29/2024 8:39 AM EST [facility]) [facility] General Categorization Negative 03/29/2024 8:39 AM EST [facility] Other Findings Atrophy 03/29/2024 8:39 [...] screening system. Technical cytopathology services provided by [facility], at [address] [place] [address] (CLIA # [id number]/Hari Foley MD, Bioinformatics Software Engineer.) 03/29/2024 8:39 AM [facility] Console Pap Interpretation Reported 03/29/2024 8:39 AM [facility] Brushing/Spatula Cervix uteri structure / Unknown 03/23/2024 03/26/2024 7:29 AM EST us Wilbert Adkins MD LAB CYTOLOGY ORDERABLES Final Result [facility] [address] [place] [address], documented in this encounter Visit Diagnoses Diagnosis Encounter for gynecological examination (general) (routine) without abnormal findings documented in this encounter Care Teams Tobacco Checkout Clerk Relationship Specialty Start Date End Date Gregg Farah MD [address] [place] [phone] PCP - General Internal Medicine 07/11/12 documented as of this encounter
[2024-07-13 09:06] VITALS: BMI 30.5
== END 2024-07-13 09:49 | disposition home or self-care (01) ==
PROVIDERS: PCP Family Medicine
DX: S62.304A Unspecified fracture of fourth metacarpal bone, right hand, initial encounter for closed fracture (principal); W00.0XXA Fall on same level due to ice and snow, initial encounter
CPT/HCPCS: 26600; 99203

== ENCOUNTER 2024-07-13 08:45 | Outpatient (REF) | payer OTHER, SELFPAY ==
--- NOTE | ~2024-07-13 | XR_ITS ---
EXAMINATION: XR HAND, RIGHT CLINICAL INFORMATION: M79.641 - Pain in right hand COMPARISON: July 10, 2024. TECHNIQUE: PA, lateral, and oblique views of the right hand. FINDINGS: There is no periosteal bone reaction or callus formation at the displaced fracture, proximal fourth metacarpal. Degenerative changes in the proximal and distal interphalangeal joints of the digits.. XR/XR hand RT min 3V IMPRESSION: No healing displaced fracture proximal fourth metacarpal. Slight worsening Electronically signed by: Anil Brown MD 07/13/2024 11:42 AM EST
--- OUTSIDE RECORDS SUMMARY | 2024-07-13 09:34 | XMS_ITS | Encounter Summary ---
Author Organization [facility] [place] [address] Care Team Providers Care Site Specialist Name Role Phone Gregg Farah MD Primary Care Provider [phone] Encounter Details Date Type Department Care Team (Latest Contact Info) Description 03/26/2024 Lab Requisition [facility] - Main Lab [address] [place] [phone] Wilbert Adkins MD [address] [phone] Encounter for gynecological examination (general) (routine) without [...] lesion or malignancy 03/29/2024 8:39 AM EST [facility] General Categorization Negative 03/29/2024 8:39 AM EST [facility] Other Findings Atrophy 03/29/2024 8:39 AM [facility] Specimen Adequacy Satisfactory for evaluation 03/29/2024 8:39 AM [facility] Pap Methodology Liquid Based Pap Test 03/29/2024 8:39 AM [facility] Disclaimer The Pap test is a screening test which carries an inherent false negative rate. These test results should be correlated with the patient's clinical findings and history. This Pap test was processed using an automated screening system. Technical cytopathology services provided by [facility], at [address] [place] [address] (CLIA # [id number]/Hari Foley MD, Candy Depositing Machine Operator.) 03/29/2024 8:39 AM [facility] Console Pap Interpretation Reported 03/29/2024 8:39 AM [facility] Brushing/Spatula Cervix uteri structure / Unknown 03/23/2024 03/26/2024 7:29 AM EST us Wilbert Adkins MD LAB CYTOLOGY ORDERABLES Final Result [facility] [address] [place] [address], documented in this encounter Visit Diagnoses Diagnosis Encounter for gynecological examination (general) (routine) without abnormal findings documented in this encounter Care Teams Site Specialist Relationship Specialty Start Date End Date Gregg Farah MD [address] [place] [phone] PCP - General Internal Medicine 07/11/12 documented as of this encounter
--- OUTSIDE RECORDS SUMMARY | 2024-07-13 09:34 | XMS_ITS | Clinical Summary ---
Author Organization [facility] [place] [address] Care Team Providers Care Renewal Specialist Name Role Phone Rudolph Farah MD Primary Care Provider [phone] Social History Tobacco Use Types Packs/Day Years [...] COLONOSCOPY REPORT Routine 07/09/2024 9:19 AM EST [facility] SCREENING DIGITAL Routine 06/02/2023 8:11 AM EST Encounter for screening mammogram for malignant neoplasm of breast [facility] DEXA AXIAL SKELETON Routine 06/02/2023 8:01 AM EST Encounter for screening for osteoporosis from Last 3 Months or Most Recently Relevant to Health Maintenance Results * External Colonoscopy Report (07/09/2024 9:19 AM EST) Anatomical Region Laterality Modality Endoscopy us Historical Provider MD WRIGHT~PROCEDURE ORDERABLES F inal Result * [facility] SCREENING DIGITAL (06/02/2023 8:11 AM EST) Anatomical Region Laterality Modality Mammography 06/02/2023 7:02 AM EST Narrative 06/02/2023 8:11 AM EST [facility] Diagnostic Imaging Department [address] [place] [address] Patient: ??MARITA BERNAL ?/Age/Sex: 1955 - - F Unit#: ??[id number] ? Location/Status: ??SPDIMAM/REG CLI ? Mnemonic/Ordering Site: ??DIGSC/SPMAM Ordering Physician: ??WILBERT ADKINS MD [facility] Screening Digital - 06/02/23722 Report Status:Signed EXAM: [facility] Screening Digital EXAM DATE AND TIME: 06/02/2023 7:24 AM HISTORY: ??Annual screening COMPARISON: ??None TECHNIQUE: Bilateral digital breast tomosynthesis was performed in the CC and MLO projections. Computer aided detection with [employer] 3D 3.1 was employed. TISSUE DENSITY: b. [...] Procedure Note Brenda Mackenzie MD - 01/02/2024 [facility] Diagnostic Imaging Department [address] [place] [address] Patient: MARITA BERNAL [place] /Age/Sex: 1955 - 67 - F Unit#: [id number] Location/Status: SPDIMAM/REG CLI Mnemonic/Ordering Site: [facility] Ordering Physician: WILBERT ADKINS MD [facility] Screening Digital - 06/02/23722 Report Status:Signed EXAM: [facility] Screening Digital EXAM DATE AND TIME: 06/02/2023 7:24 AM HISTORY: Annual screening COMPARISON: None TECHNIQUE: Bilateral digital breast tomosynthesis was performed in the CCand MLO projections. Computer aided detection with [employer] 3D 3.1was employed. TISSUE DENSITY: b. There [...] MD IMG BI PROCEDURES Final Result * [facility] DEXA AXIAL SKELETON (06/02/2023 8:01 AM EST) Anatomical Region Laterality Modality Mammography 06/02/2023 7:04 AM EST Narrative 06/02/2023 8:01 AM EST [facility] Diagnostic Imaging Department [address] [place] [address] Patient: ??MARITA BERNAL ?/Age/Sex: 1955 Unit#: ??[id number] ? Location/Status: ??SPDIMAM/REG CLI ? Mnemonic/Ordering Site: [...] probability of hip fracture of 0.5%. Code 56515 Dictating Physician: ??RUDOLPH QUINTERO MD Electronically Signed by: ??RUDOLPH QUINTERO MD Dic Date/Time: ??06/02/23799 Sign date/Time: ??06/02/23800 Procedure Note Rudolph Quintero MD - 01/02/2024 [facility] Diagnostic Imaging Department [address] [place] [address] Patient: MARITA BERNAL Augusta Hernandez./Age/Sex: 1955 - 67 - F Unit#: [id number] Location/Status: [facility] Mnemonic/Ordering [facility] Ordering Physician: WILBERT ADKINS MD [facility] Dexa Axial Skeleton - 06/02/2335 Report [...] density of the femurs bilaterally is 1.067 gm/om6eccga is 106% of that of young normals [...] probability of hip fracture of 0.5%. Code 35630 Dictating Physician: RUDOLPH QUINTERO MD Electronically Signed by: RUDOLPH QUINTERO MD Dic Date/Time: 06/02/23799 Sign date/Time: 06/02/23800 Wilbert Adkins MD IMG BI PROCEDURES Final Result from Last 3 Months or Most Recently Relevant to Health Maintenance Insurance [address] [place] [address] [employer] Care Teams Renewal Specialist Relationship Specialty Start Date End Date Rudolph Farah MD [address] [place] [phone] PCP - General Internal Medicine 07/11/12
== END 2024-07-13 08:46 | disposition home or self-care (01) ==
LOC: HO.HOSX 08:45
PROVIDERS: PCP Family Medicine
DX: M79.641 Pain in right hand (principal); S62.304A Unspecified fracture of fourth metacarpal bone, right hand, initial encounter for closed fracture; W00.0XXA Fall on same level due to ice and snow, initial encounter; Y93.01 Activity, walking, marching and hiking; Y92.9 Unspecified place or not applicable; Y99.9 Unspecified external cause status
CPT/HCPCS: 26600; 73130

== ENCOUNTER → 2024-07-13 09:07 | Outpatient (BNV) | payer OTHER, SELFPAY | PROVIDERS: PCP Family Medicine; Visit Provider Radiology Diagnostic Radiology | DX: M79.641 Pain in right hand (principal) | CPT/HCPCS: 73130 ==

== ENCOUNTER 2024-07-20 07:59 | Outpatient (AMB) | payer OTHER, SELFPAY ==
--- OUTSIDE RECORDS SUMMARY | 2024-07-20 08:04 | XMS_ITS | Clinical Summary ---
Author Organization [facility] [place] [address] Care Team Providers Care Production Planner Scheduler Name Role Phone Rudolph Farah MD Primary Care Provider [phone] Social History Tobacco Use Types Packs/Day Years [...] COLONOSCOPY REPORT Routine 07/09/2024 9:19 AM EST [facility] SCREENING DIGITAL Routine 06/02/2023 8:11 AM EST Encounter for screening mammogram for malignant neoplasm of breast [facility] DEXA AXIAL SKELETON Routine 06/02/2023 8:01 AM EST Encounter for screening for osteoporosis from Last 3 Months or Most Recently Relevant to Health Maintenance Results * External Colonoscopy Report (07/09/2024 9:19 AM EST) Anatomical Region Laterality Modality Endoscopy us Historical Provider MD WRIGHT~PROCEDURE ORDERABLES F inal Result * [facility] SCREENING DIGITAL (06/02/2023 8:11 AM EST) Anatomical Region Laterality Modality Mammography 06/02/2023 7:02 AM EST Narrative 06/02/2023 8:11 AM EST [facility] Diagnostic Imaging Department [address] [place] [address] Patient: ??MARITA BERNAL ?/Age/Sex: 1955 - - F Unit#: ??[id number] ? Location/Status: ??SPDIMAM/REG CLI ? Mnemonic/Ordering Site: ??DIGSC/SPMAM Ordering Physician: ??WILBERT ADKINS MD [facility] Screening Digital - 06/02/23722 Report Status:Signed EXAM: [facility] Screening Digital EXAM DATE AND TIME: 06/02/2023 7:24 AM HISTORY: ??Annual screening COMPARISON: ??None TECHNIQUE: Bilateral digital breast tomosynthesis was performed in the CC and MLO projections. Computer aided detection with [employer] 3D 3.1 was employed. TISSUE DENSITY: b. [...] Procedure Note Brenda Mackenzie MD - 01/02/2024 [facility] Diagnostic Imaging Department [address] [place] [address] Patient: MARITA BERNAL [place] /Age/Sex: 1955 - 67 - F Unit#: [id number] Location/Status: SPDIMAM/REG CLI Mnemonic/Ordering Site: [facility] Ordering Physician: WILBERT AKDINS MD [facility] Screening Digital - 06/02/23722 Report Status:Signed EXAM: [facility] Screening Digital EXAM DATE AND TIME: 06/02/2023 7:24 AM HISTORY: Annual screening COMPARISON: None TECHNIQUE: Bilateral digital breast tomosynthesis was performed in the CCand MLO projections. Computer aided detection with [employer] 3D 3.1was employed. TISSUE DENSITY: b. There [...] BRENDA MACKENZIE MD Electronically Signed by: BRENDA MAKCENZIE MD Dic Date/Time: 06/02/23808 Sign date/Time: 06/02/23810 us Wilbert Adkins MD IMG BI PROCEDURES Final Result * [facility] DEXA AXIAL SKELETON (06/02/2023 8:01 AM EST) Anatomical Region Laterality Modality Mammography 06/02/2023 7:04 AM EST Narrative 06/02/2023 8:01 AM EST [facility] Diagnostic Imaging Department [address] [place] [address] Patient: ??MARITA BERNAL ?/Age/Sex: 1955 Unit#: ??[id number] ? Location/Status: ??SPDIMAM/REG CLI ? Mnemonic/Ordering Site: [...] probability of hip fracture of 0.5%. Code 02373 Dictating Physician: ??RUDOLPH QUINTERO MD Electronically Signed by: ??RUDOLPH QUINTERO MD Dic Date/Time: ??06/02/23799 Sign date/Time: ??06/02/23800 Procedure Note Rudolph Quintero MD - 01/02/2024 [facility] Diagnostic Imaging Department [address] [place] [address] Patient: MARITA BERNAL Augusta Hernandez./Age/Sex: 1955 - 67 - F Unit#: [id number] Location/Status: [facility] Mnemonic[facility]ing [facility] Ordering Physician: WILBERT ADKINS MD [facility] Dexa Axial Skeleton - 06/02/2335 [...] density of the femurs bilaterally is 1.067 gm/iw5sxokx is 106% of that of young normals [...] probability of hip fracture of 0.5%. Code 67747 Dictating Physician: RUDOLPH QUINTERO MD Electronically Signed by: RUDOLPH QUINTERO MD Dic Date/Time: 06/02/23799 Sign date/Time: 06/02/23800 Wilbert Adkins MD IMG BI PROCEDURES Final Result from Last 3 Months or Most Recently Relevant to Health Maintenance Insurance [address] [place] [id number] [employer] Care Teams Production Planner Scheduler Relationship Specialty Start Date End Date Rudolph Farah MD [address] [place] [phone] PCP - General Internal Medicine 07/11/12
--- OUTSIDE RECORDS SUMMARY | 2024-07-20 08:04 | XMS_ITS | Encounter Summary ---
Author Organization [facility] [place] [address] Care Team Providers Care Glass Bulb Machine Adjuster Name Role Phone Gregg Farah MD Primary Care Provider [phone] Encounter Details Date Type Department Care Team (Latest Contact Info) Description 03/26/2024 Lab Requisition [facility] - Main Lab [address] [place] [phone] Wilbert Adkins MD [address] [phone] Encounter for gynecological examination (general) (routine) without [...] lesion or malignancy 03/29/2024 8:39 AM EST [facility]) [facility] General Categorization Negative 03/29/2024 8:39 AM EST [facility] Other Findings Atrophy 03/29/2024 [...] screening system. Technical cytopathology services provided by [facility], at [address] [place] [address] (CLIA # [id number]/Hari Foley MD, Taproom Attendant.) 03/29/2024 8:39 AM [facility] Console Pap Interpretation Reported 03/29/2024 8:39 AM [facility] Brushing/Spatula Cervix uteri structure / Unknown 03/23/2024 03/26/2024 7:29 AM EST us Wilbert Adkins MD LAB CYTOLOGY ORDERABLES Final Result [facility] [address] [place] [address], documented in this encounter Visit Diagnoses Diagnosis Encounter for gynecological examination (general) (routine) without abnormal findings documented in this encounter Care Teams Glass Bulb Machine Adjuster Relationship Specialty Start Date End Date Gregg Farah MD [address] [place] [phone] PCP - General Internal Medicine 07/11/12 documented as of this encounter
[2024-07-20 08:06] VITALS: BMI 30.5
--- NOTE | 2024-07-20 08:06 | MHC.OFFVIS ---
Vital Signs 07/20/24 08:06 Height 5 ft 6 in Weight 189 lb BMI 30.5 Intake Visit Reasons: OV RT 4th MCP minimally displaced fx, DOI 07/03/24 Intake Note: Marita is a 68 year old right hand dominant female who presents today for a follow up visit for h Right 4th metacarpal fracture s/p slip and fall DOI: 07/03/2024. At her last visit on 07/13/2024 patient was placed into a 3 finger ulnar gutter splint. Currently states her pain has improved and swelling has gone down. Allergies Seasonal Allergies Allergy (Intermediate, Verified 07/20/24 08:14) Runny Nose amoxicillin Allergy (Mild, Verified 07/20/24 08:14) Rash HPI HPI OV RT 4th MCP minimally displaced fx, DOI 07/03/24: Details: Marita is a 68 year old right hand dominant female who presents today for a follow up visit for h Right 4th metacarpal fracture s/p slip and fall DOI: 07/03/2024. At her last visit on 07/13/2024 patient was placed into a 3 finger ulnar gutter splint. Currently states her pain has improved and swelling has gone down. Denies any numbness or tingling in the right upper extremity. No other acute complaints or concerns at this time. PENDING SALE TO [facility] Medical History Subarachnoid hemorrhage Hyperthyroidism Hypertension Surgical History Hx of cholecystectomy Family History Father Hypertension Social History Household Members: Spouse Both parents involved: No Caregiver staying overnight: No Housing: House Are you a primary career guidance technician to a significant other at home: No Do you presently have visiting nurse or other home services: No 75 years or older and lives alone: No Alcohol intake: never Patient Tobacco Use Status: Never used Tobacco e-Cigarette/Vaping Use: Never Used Second Hand Smoke Exposure: No service: No Current occupational status: employed 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 Neuro: Normal sensation of the tips of all digits of the right hand at this time Vascular: Cap refill brisk Pain: Mild tenderness to palpation over the right 4th metacarpal Pain with range of motion of the 3rd through 5th digits of the right Skin: No lacerations or abrasions. General: No further edema noted over the right 4th metacarpal No ecchymosis, erythema, or evidence of infection. Psych: Appears grossly normal Affect normal Attitude cooperative Office Procedures Casting/Splints 90522-Pctr/Wrist Cast Application Procedure code (CPT) selection complete Results Reviewed Results Reviewed: X-rays obtained in the office today and independently reviewed by me, Mike Betts PA-C, demonstrate minimally displaced, oblique fracture of the proximal right 4th metacarpal. Assessment & Plan Assessment & Plan (1) Fracture of fourth metacarpal bone of right hand: Code(s): S62.304A - Unspecified fracture of fourth metacarpal bone, right hand, initial encounter for closed fracture Category: Medical Plan 1. Proximal right 4th metacarpal fracture Date of injury 07/03/2024 Patient appears to be recovering well from her injury Patient was educated about the typical recovery course At this time, patient was placed into a 3 finger ulnar gutter cast Patient was educated on proper cast care and precautions Patient was amenable to this plan Patient will follow-up in 2 weeks with repeat x-rays for reassessment, sooner with any acute concerns Orders: Orders XR hand RT min 3V Today M79.641 - Pain in right hand Coding Level of Care Code Global (08119) Diagnoses Fracture of fourth metacarpal bone of right hand S62.304A CPT Codes Casting - CPT: 46442-Tpnj/Wrist Cast Application ([id number])
== END 2024-07-20 09:28 | disposition home or self-care (01) ==
PROVIDERS: PCP Family Medicine
DX: S62.304A Unspecified fracture of fourth metacarpal bone, right hand, initial encounter for closed fracture (principal)
CPT/HCPCS: 29085; 99024

== ENCOUNTER 2024-07-20 07:59 | Outpatient (REF) | payer OTHER, SELFPAY ==
--- NOTE | ~2024-07-20 | XR_ITS ---
EXAMINATION: XR HAND, RIGHT CLINICAL INFORMATION: M79.641 - Pain in right hand COMPARISON: Right hand 07/05/2024.. TECHNIQUE: PA, lateral, and oblique views of the right hand. FINDINGS: There is an oblique fracture proximal fourth metacarpal with minimal displacement. No additional fractures seen. The soft tissues are normal. XR/XR hand RT min 3V IMPRESSION: No significant change in the oblique fracture proximal fourth metacarpal with minimal displacement, Electronically signed by: Jasmeet Mcclellan MD 07/20/2024 09:25 AM EST
--- OUTSIDE RECORDS SUMMARY | 2024-07-20 08:32 | XMS_ITS | Clinical Summary ---
Author Organization [place] [address] Care Team Providers Care University Relations Director Name Role Phone Rudolph Farah MD Primary Care Provider [phone] Social History Tobacco Use Types Packs/Day Years [...] COLONOSCOPY REPORT Routine 07/09/2024 9:19 AM EST [facility] SCREENING DIGITAL Routine 06/02/2023 8:11 AM EST Encounter for screening mammogram for malignant neoplasm of breast [facility] DEXA AXIAL SKELETON Routine 06/02/2023 8:01 AM EST Encounter for screening for osteoporosis from Last 3 Months or Most Recently Relevant to Health Maintenance Results * External Colonoscopy Report (07/09/2024 9:19 AM EST) Anatomical Region Laterality Modality Endoscopy us Historical Provider MD WRIGHT~PROCEDURE ORDERABLES F inal Result * [facility] SCREENING DIGITAL (06/02/2023 8:11 AM EST) Anatomical Region Laterality Modality Mammography 06/02/2023 7:02 AM EST Narrative 06/02/2023 8:11 AM EST [facility] Diagnostic Imaging Department [address] [place] [address] Patient: ??MARITA BERNAL ?/Age/Sex: 1955 - - F Unit#: ??[id number] ? Location/Status: ??SPDIMAM/REG CLI ? Mnemonic/Ordering Site: ??DIGSC/SPMAM Ordering Physician: ??WILBERT ADKINS MD [facility] Screening Digital - 06/02/23722 Report Status:Signed EXAM: [facility] Screening Digital EXAM DATE AND TIME: 06/02/2023 7:24 AM HISTORY: ??Annual screening COMPARISON: ??None TECHNIQUE: Bilateral digital breast tomosynthesis was performed in the CC and MLO projections. Computer aided detection with [employer] 3D 3.1 was employed. TISSUE DENSITY: b. [...] Procedure Note Brenda Mackenzie MD - 01/02/2024 [facility] Diagnostic Imaging Department [address] [place] [address] Patient: MARITA BERNAL [place] /Age/Sex: 1955 - 67 - F Unit#: [id number] Location/Status: SPDIMAM/REG CLI Mnemonic/Ordering Site: [facility] Ordering Physician: WILBERT ADKINS MD [facility] Screening Digital - 06/02/23722 Report Status:Signed EXAM: [facility] Screening Digital EXAM DATE AND TIME: 06/02/2023 7:24 AM HISTORY: Annual screening COMPARISON: None TECHNIQUE: Bilateral digital breast tomosynthesis was performed in the CCand MLO projections. Computer aided detection with [employer] 3D 3.1was employed. TISSUE DENSITY: b. There [...] MD IMG BI PROCEDURES Final Result * [facility] DEXA AXIAL SKELETON (06/02/2023 8:01 AM EST) Anatomical Region Laterality Modality Mammography 06/02/2023 7:04 AM EST Narrative 06/02/2023 8:01 AM EST [facility] Diagnostic Imaging Department [address] [place] [address] Patient: ??MARITA BERNAL ?/Age/Sex: 1955 Unit#: ??[id number] ? Location/Status: ??SPDIMAM/REG CLI ? Mnemonic/Ordering Site: [...] probability of hip fracture of 0.5%. Code 06111 Dictating Physician: ??RUDOLPH QUINTERO MD Electronically Signed by: ??RUDOLPH QUINTERO MD Dic Date/Time: ??06/02/23799 Sign date/Time: ??06/02/23800 Procedure Note Rudolph Quintero MD - 01/02/2024 [facility] Diagnostic Imaging Department [address] [place] [address] Patient: MARITA BERNAL Augusta Hernandez./Age/Sex: 1955 - 67 - F Unit#: [id number] Location/Status: [facility] Mnemonic[facility]ing [facility] Ordering Physician: WILBERT ADKINS MD [facility] Dexa Axial Skeleton - 06/02/2335 Report [...] density of the femurs bilaterally is 1.067 gm/ch5mnimx is 106% of that of young normals [...] probability of hip fracture of 0.5%. Code 71817 Dictating Physician: RUDOLPH QUINTERO MD Electronically Signed by: RUDOLPH QUINTERO MD Dic Date/Time: 06/02/23799 Sign date/Time: 06/02/23800 Wilbert Adkins MD IMG BI PROCEDURES Final Result from Last 3 Months or Most Recently Relevant to Health Maintenance Insurance [address] [place] [id number] [employer] Care Teams University Relations Director Relationship Specialty Start Date End Date Rudolph Farah MD [address] [place] [phone] PCP - General Internal Medicine 07/11/12
--- OUTSIDE RECORDS SUMMARY | 2024-07-20 08:32 | XMS_ITS | Encounter Summary ---
Author Organization [facility] [place] [address] Care Team Providers Care Helper Steel Fabrication Name Role Phone Gregg Farah MD Primary Care Provider [phone] Encounter Details Date Type Department Care Team (Latest Contact Info) Description 03/26/2024 Lab Requisition [facility] - Main Lab [address] [place] [phone] Wilbert Adkins MD [address] [phone] Encounter for gynecological examination (general) (routine) without [...] lesion or malignancy 03/29/2024 8:39 AM EST [facility]) [facility] General Categorization Negative 03/29/2024 8:39 AM EST [facility] Other Findings Atrophy 03/29/2024 8:39 AM [facility] Specimen Adequacy Satisfactory for evaluation 03/29/2024 8:39 AM [facility] Pap Methodology Liquid Based Pap Test 03/29/2024 8:39 AM [facility] Disclaimer The Pap test is a screening test which carries an inherent false negative rate. These test results should be correlated with the patient's clinical findings and history. This Pap test was processed using an automated screening system. Technical cytopathology services provided by [facility], at [address] [place] [address] (CLIA # [id number]/Hari Foley MD, River Expedition Guide.) 03/29/2024 8:39 AM [facility] Console Pap Interpretation Reported 03/29/2024 8:39 AM [facility] Brushing/Spatula Cervix uteri structure / Unknown 03/23/2024 03/26/2024 7:29 AM EST us Wilbert Adkins MD LAB CYTOLOGY ORDERABLES Final Result [facility] [address] [place] [address], documented in this encounter Visit Diagnoses Diagnosis Encounter for gynecological examination (general) (routine) without abnormal findings documented in this encounter Care Teams [employer] Relationship Specialty Start Date End Date Gregg Farah MD [address] [place] [phone] PCP - General Internal Medicine 07/11/12 documented as of this encounter
== END 2024-07-20 08:00 | disposition home or self-care (01) ==
LOC: HO.HOSX 07:59
PROVIDERS: PCP Family Medicine
DX: M79.641 Pain in right hand (principal); S62.304A Unspecified fracture of fourth metacarpal bone, right hand, initial encounter for closed fracture
CPT/HCPCS: 29085; 73130

== ENCOUNTER → 2024-07-20 08:27 | Outpatient (BNV) | payer OTHER, SELFPAY | PROVIDERS: PCP Family Medicine; Visit Provider Radiology Diagnostic Radiology | DX: S62.394A Other fracture of fourth metacarpal bone, right hand, initial encounter for closed fracture (principal) | CPT/HCPCS: 73130 ==

== ENCOUNTER 2024-08-03 08:03 | Outpatient (AMB) | payer OTHER, SELFPAY ==
--- OUTSIDE RECORDS SUMMARY | 2024-08-03 08:07 | XMS_ITS | Clinical Summary ---
Author Organization [facility] [place] [address] Care Team Providers Care Revenue Officer Name Role Phone Rudolph Farah MD Primary Care Provider [phone] Encounters Date Type Department Care Team Description 07/22/2024 Lab Requisition [facility] - Main Lab [address] [facility] [employer] [place] [address] Virginia Ellis Obesity, unspecified; Essential (primary) hypertension; Personal history of other endocrine, nutritional and metabolic disease; Endocrine disorder, unspecified; Chronic fatigue, unspecified from Last 3 Months Social History Tobacco [...] 10/14/1974 Zoster Vaccines (1 of 2) 10/14/2005 Depression Screening 06/21/2019 Hepatitis C Screening 06/21/2019 Social Influencers of Health Screening 06/21/2019 Pneumococcal Vaccine: 50+ Ye ars (2 of 2 - PPSV23) 07/31/2020 08/01/2019 Falls Risk Assessment 10/14/2020 COVID-19 Vaccine (1 - 2023-2 5 season) 2024 Influenza Vaccine (#1) 2024 01/27/2020 Breast Cancer Screening 06/02/2025 06/02/2023 Hypertension/CHF/CAD Annual BMP Blood Test 07/22/2025 07/22/2024 Cholesterol Screening (Lipid Panel) 07/22/2029 07/22/2024 RSV Immunization Patients 60 + Years Old [...] Procedure Name Priority Date/Time Associated Diagnosis Comments VITAMIN D 25 HYDROXY Routine 07/22/2024 12:00 AM EST Obesity, unspecified Essential (primary) hypertension Personal history of other endocrine, nutritional and metabolic disease Endocrine disorder, unspecified Chronic fatigue, unspecified INSULIN, TOTAL Routine 07/22/2024 12:00 AM EST Obesity, unspecified Essential (primary) hypertension Personal history of other endocrine, nutritional and metabolic disease Endocrine disorder, unspecified Chronic fatigue, unspecified THYROID STIMULATING HORMONE Routine 07/22/2024 12:00 AM EST Obesity, unspecified Essential (primary) hypertension Personal history of other endocrine, nutritional and metabolic disease Endocrine disorder, unspecified Chronic fatigue, unspecified HEMOGLOBIN A1C Routine 07/22/2024 12:00 AM EST Obesity, unspecified Essential (primary) hypertension Personal history of other endocrine, nutritional and metabolic disease Endocrine disorder, unspecified Chronic fatigue, unspecified FOLATE Routine 07/22/2024 12:00 AM EST Obesity, unspecified Essential (primary) hypertension Personal history of other endocrine, nutritional and metabolic disease Endocrine disorder, unspecified Chronic fatigue, unspecified VITAMIN B12 Routine 07/22/2024 12:00 AM EST Obesity, unspecified Essential (primary) hypertension Personal history of other endocrine, nutritional and metabolic disease Endocrine disorder, unspecified Chronic fatigue, unspecified COMPLETE BLOOD COUNT Routine 07/22/2024 12:00 AM EST Obesity, unspecified Essential (primary) hypertension Personal history of other endocrine, nutritional and metabolic disease Endocrine disorder, unspecified Chronic fatigue, unspecified LIPID PANEL WITH REFLEX TO DIRECT LDL Routine 07/22/2024 12:00 AM EST Obesity, unspecified Essential (primary) hypertension Personal history of other endocrine, nutritional and metabolic disease Endocrine disorder, unspecified Chronic fatigue, unspecified COMPREHENSIVE METABOLIC PANEL Routine 07/22/2024 12:00 AM EST Obesity, unspecified Essential (primary) hypertension Personal history of other endocrine, nutritional and metabolic disease Endocrine disorder, unspecified Chronic fatigue, unspecified EXTERNAL COLONOSCOPY REPORT Routine 07/09/2024 9:19 AM EST MICHAEL SCREENING DIGITAL Routine 06/02/2023 8:11 AM EST Encounter for screening mammogram for malignant neoplasm of breast MICHAEL DEXA AXIAL SKELETON Routine 06/02/2023 8:01 AM EST Encounter for screening for osteoporosis from Last 3 Months or Most Recently Relevant to Health Maintenance Results * (ABNORMAL) Lipid panel with reflex to direct LDL (07/22/2024 12:00 AM EST) Cholesterol 180 0 - 200 mg/dL LAB CHEMISTRY METHOD 07/22/2024 8:20 PM [facility] Triglycerides 192(H) 0 - 150 mg/dL LAB CHEMISTRY METHOD 07/22/2024 8:20 PM [facility] HDL 53 >=40 mg/dL LAB CHEMISTRY METHOD 07/22/2024 8:20 PM EDT [facility] LDL Calculated 89 0 - 100 mg/dL LAB CHEMISTRY METHOD 07/22/2024 8:20 PM EDT [facility] VLDL Cholesterol Bird 38.4 mg/dL LAB CHEMISTRY METHOD 07/22/2024 8:20 PM EDT [facility] Non HDL Chol. (LDL+VLDL) 127 <145 mg/dL LAB CHEMISTRY METHOD 07/22/2024 8:20 PM EDT [facility] Chol/HDL Ratio 3.4 0.0 - 4.4 LAB CHEMISTRY METHOD 07/22/2024 8:20 PM EDT [facility] Blood Venous blood specimen / Unknown 07/22/2024 07/22/2024 2:16 PM EDT [employer] LAB BLOOD ORDERABLES Final Resul t Performing Organization Address City/[facility]/ZIP Co de Phone Number [facility] [address] [place] [address], [place] [phone] * Insulin, total (07/22/2024 12:00 AM EST) Insulin 7.9 3.0 - 25.0 mcIU/mL LAB CHEMISTRY METHOD 07/22/2024 8:28 PM EDT [facility] Blood Venous blood specimen / Unknown 07/22/2024 07/22/2024 2:16 PM EDT Narrative [facility] - 07/22/2024 8:28 PM EDT Insulin reference range based on fasting status. ??Insulin values vary in non- fasting individuals. [employer] LAB BLOOD ORDERABLES Final Resul t Performing Organization Address City/[facility]/ZIP Co de Phone Number [facility] [address] [place] [address], [place] [phone] * Vitamin D 25 hydroxy (07/22/2024 12:00 AM EST) Pathologist [facility] Vit D, 25-Hydroxy 47.8 30.0 - 80.0 ng/mL LAB CHEMISTRY METHOD 07/23/2024 3:42 AM EDT [facility] Blood Venous blood specimen / Unknown 07/22/2024 07/22/2024 2:16 PM EDT Virginia Ellis LAB BLOOD ORDERABLES Final Resul t [facility] [address] [place] [address], * (ABNORMAL) Complete blood count (07/22/2024 12:00 AM EST) [facility] WBC 8.7 4.8 - 10.8 K/mcL LAB HEMETOLOGY METHOD 07/22/2024 7:49 PM EDT [facility] RBC 4.20 3.80 - 4.80 M/mcL LAB HEMETOLOGY METHOD 07/22/2024 7:49 PM EDT [facility] Hemoglobin 13.1 11.5 - 16.0 g/dL LAB HEMETOLOGY METHOD 07/22/2024 7:49 PM EDT [facility] Hematocrit 39.2 35.0 - 47.0 % LAB HEMETOLOGY METHOD 07/22/2024 7:49 PM EDT [facility] MCV 93.6 79.0 - 98.0 FL LAB HEMETOLOGY METHOD 07/22/2024 7:49 PM EDT [facility] MCH 31.3 27.0 - 32.0 pcg LAB HEMETOLOGY METHOD 07/22/2024 7:49 PM EDT [facility] MCHC 33.4 32.0 - 37.0 g/dL LAB HEMETOLOGY METHOD 07/22/2024 7:49 PM EDT [facility] RDW 11.9 11.0 - 15.0 % LAB HEMETOLOGY METHOD 07/22/2024 7:49 PM EDT [facility] Platelets 411(H) 130 - 400 K/mcL LAB HEMETOLOGY METHOD 07/22/2024 7:49 PM EDT [facility] MPV 9.2 7.0 - 11.0 FL LAB HEMETOLOGY METHOD 07/22/2024 7:49 PM EDT [facility] NRBC 0.0 <1.0 % LAB HEMETOLOGY METHOD 07/22/2024 7:49 PM EDT [facility] NRBC Absolute 0.00 <0.10 K/mcL LAB HEMETOLOGY METHOD 07/22/2024 7:49 PM EDT [facility] Blood Venous blood specimen / Unknown 07/22/2024 07/22/2024 2:16 PM EDT [employer] LAB BLOOD ORDERABLES Final Resul t Performing Organization Address City/[facility]/ZIP Co de Phone Number [facility] [address] [place] [address], [place] [phone] * Thyroid stimulating hormone (07/22/2024 12:00 AM EST) [facility] TSH 2.91 0.40 - 4.00 mcIU/mL LAB CHEMISTRY METHOD 07/22/2024 8:30 PM EDT [facility] Blood Venous blood specimen / Unknown 07/22/2024 07/22/2024 2:16 PM EDT [employer] LAB BLOOD ORDERABLES Final Resul t Performing Organization Address City/[facility]/ZIP Co de Phone Number [facility] [address] [place] [address], [place] [phone] * Hemoglobin A1c (07/22/2024 12:00 AM EST) [facility] Hemoglobin A1C 5.7 <6.5 % LAB CHEMISTRY METHOD 07/23/2024 1:46 PM EDT [facility] Mean Bld Glu Estim. 117 mg/dL LAB CHEMISTRY METHOD 07/23/2024 1:46 PM EDT [facility] Blood Venous blood specimen / Unknown 07/22/2024 07/22/2024 2:16 PM EDT [employer] Virginia Caleb LAB BLOOD ORDERABLES Final Resul t Performing Organization Address City/[facility]/ZIP Co de Phone Number [facility] [address] [place] [address], [place] [phone] * Folate (07/22/2024 12:00 AM EST) [facility] Folate 16.9 2.8 - 17.0 ng/ml LAB CHEMISTRY METHOD 07/22/2024 8:42 PM EDT [facility] Blood Venous blood specimen / Unknown 07/22/2024 07/22/2024 2:16 PM EDT Virginia Caleb LAB BLOOD ORDERABLES Final Resul t Performing Organization Address [facility] Co de Phone Number [facility] [address] [place] [address], [place] [phone] * (ABNORMAL) Vitamin B12 (07/22/2024 12:00 AM EST) [facility] Vitamin B-12 233(L) 250 - 900 pcg/mL LAB CHEMISTRY METHOD 07/22/2024 8:42 PM EDT [facility] Blood Venous blood specimen / Unknown 07/22/2024 07/22/2024 2:16 PM EDT [employer] Virginia [employer] LAB BLOOD ORDERABLES Final Resul t Performing Organization Address City/[facility]/ZIP Co de Phone Number [facility] [address] [place] [address], * Comprehensive metabolic panel (07/22/2024 12:00 AM EST) Sodium 139 133 - 145 mmol/L LAB CHEMISTRY METHOD 07/22/2024 8:20 PM [facility] Potassium 3.9 3.5 - 5.5 mmol/L LAB CHEMISTRY METHOD 07/22/2024 8:20 PM [facility] Chloride 105 96 - 110 mmol/L LAB CHEMISTRY METHOD 07/22/2024 8:20 PM [facility] CO2 29 21 - 32 mmol/L LAB CHEMISTRY METHOD 07/22/2024 8:20 PM [facility] Anion Gap 5 3 - 11 LAB CHEMISTRY METHOD 07/22/2024 8:20 PM [facility] Glucose 87 70 - 100 mg/dL LAB CHEMISTRY METHOD 07/22/2024 8:20 PM [facility] BUN 13 5 - 25 mg/dL LAB CHEMISTRY METHOD 07/22/2024 8:20 PM [facility] Creatinine 0.70 0.50 - 1.10 mg/dL LAB CHEMISTRY METHOD 07/22/2024 8:20 PM [facility] eGFR 94 >=60 mL/min/1. 73m2 LAB CHEMISTRY METHOD 07/22/2024 8:20 PM [facility] Comment:Calculation based on the??Chronic Kidney Disease Epidemiology Collaboration (CKD-EPI) equation refit??without adjustment for race. BUN/Creatinine Ratio 18.6 LAB CHEMISTRY METHOD 07/22/2024 8:20 PM [facility] Calcium 9.6 8.5 - 10.5 mg/dL LAB CHEMISTRY METHOD 07/22/2024 8:20 PM [facility] AST (SGOT) 29 10 - 42 unit/L LAB CHEMISTRY METHOD 07/22/2024 8:20 PM [facility] ALT (SGPT) 38 10 - 60 unit/L LAB CHEMISTRY METHOD 07/22/2024 8:20 PM EDT [facility] Alkaline Phosphatase 83 42 - 121 unit/L LAB CHEMISTRY METHOD 07/22/2024 8:20 PM EDT [facility] Total Protein 7.0 6.0 - 8.0 g/dL LAB CHEMISTRY METHOD 07/22/2024 8:20 PM EDT [facility] Albumin 3.8 3.2 - 5.0 g/dL LAB CHEMISTRY METHOD 07/22/2024 8:20 PM EDT [facility] Total Bilirubin 0.6 0.0 - 1.4 mg/dL LAB CHEMISTRY METHOD 07/22/2024 8:20 PM EDT [facility] Blood Venous blood specimen / Unknown 07/22/2024 07/22/2024 2:16 PM EDT Virginia Ellis LAB BLOOD ORDERABLES Final Resul t [facility] [address] [place] [address], * External Colonoscopy Report (07/09/2024 9:19 AM EST) Anatomical Region Laterality Modality Endoscopy Historical Provider GI~PROCEDURE ORDERABLES F inal Result * MICHAEL SCREENING DIGITAL (06/02/2023 8:11 AM EST) Anatomical Region Laterality Modality Mammography 06/02/2023 7:02 AM EST Narrative 06/02/2023 8:11 AM EST [facility] Diagnostic Imaging Department [address], [place] [id number] Patient: ??MARITA BERNAL ?/Age/Sex: 1955 - 67 - F Unit#: ??[id number] ? Location/Status: ??SPDIMAM/REG CLI ? Mnemonic/Ordering Site: ??DIGSC/SPMAM Ordering Physician: ??WILBERT ADKINS MD [facility] Screening Digital - 06/02/23 - 722 Report Status:Signed EXAM: [facility] Screening Digital EXAM DATE AND TIME: 06/02/2023 7:24 AM HISTORY: ??Annual screening COMPARISON: ??None TECHNIQUE: Bilateral digital breast tomosynthesis was performed in the CC and MLO projections. Computer aided detection with [employer] 3D 3.1 was employed. TISSUE DENSITY: b. [...] 01/02/2024 [facility] Diagnostic Imaging Department [address] [place] [address] Patient: MARITA BERNAL /Age/Sex: 1955 - 67 - F Unit#: [id number] Location/Status: SPDIMAM/REG CLI Mnemonic/Ordering Site: D[facility]SC/[facility] Ordering Physician: WILBERT ADKINS MD [facility] Screening Digital - 06/02/23 - 722 Report Status:Signed EXAM: [facility] Screening Digital EXAM DATE AND TIME: 06/02/2023 7:24 AM HISTORY: Annual screening COMPARISON: None TECHNIQUE: Bilateral digital breast tomosynthesis was performed in the CCand MLO projections. Computer aided detection with [employer] 3D 3.1was employed. TISSUE DENSITY: b. There [...] MD IMG BI PROCEDURES Final Result * [facility] DEXA AXIAL SKELETON (06/02/2023 8:01 AM EST) Anatomical Region Laterality Modality Mammography 06/02/2023 7:04 AM EST Narrative 06/02/2023 8:01 AM EST [facility] Diagnostic Imaging Department [address] [place] [address] Patient: ??MARITA BERNAL ?/Age/Sex: 1955 Unit#: ??[id number] ? Location/Status: ??SPDIMAM/REG CLI ? Mnemonic/Ordering Site: ??MAMDEXAAX/SPMAM Ordering Physician: ??WILBERT ADKINS MD [facility] Dexa Axial Skeleton - 06/02/2335 Report Status:Signed HISTORY: ??The patient is a [...] probability of hip fracture of 0.5%. Code 98572 Dictating Physician: ??RUDOLPH QUINTERO MD Electronically Signed by: ??RUDOLPH QUINTERO MD Dic Date/Time: ??06/02/23799 Sign date/Time: ??06/02/23800 Procedure Note Rudolph Quintero MD - 01/02/2024 [facility] Diagnostic Imaging Department [address] [place] [address] Patient: MARITA BERNAL./Age/Sex: 1955 - 67 - F Unit#: [id number] Location/Status: [facility]emonic[facility] Ordering Physician: WILBERT ADKINS MD [facility] Dexa Axial Skeleton - 06/02/2335 Report Status:Signed [...] density of the femurs bilaterally is 1.067 gm/mh9iglfs is 106% of that of young normals [...] probability of hip fracture of 0.5%. Code 38981 Dictating Physician: RUDOLPH QUINTERO MD Electronically Signed by: RUDOLPH QUINTERO MD Dic Date/Time: 06/02/23799 Sign date/Time: 06/02/23 08 Wilbert Adkins MD IMG BI PROCEDURES Final Result from Last 3 Months or Most Recently Relevant to [place] [phone] [employer] Care Teams Revenue Officer Relationship Specialty Start Date End Date Rudolph Farah MD [address] [place] [phone] PCP - General Internal Medicine 07/11/12
--- OUTSIDE RECORDS SUMMARY | 2024-08-03 08:07 | XMS_ITS | Encounter Summary ---
Author Organization [facility] [place] [address] Care Team Providers Care Testing Manager Name Role Phone Gregg Farah MD Primary Care Provider Encounter Details Date Type Department Care Team (Latest Contact Info) Description 03/26/2024 Lab Requisition [facility] - Main Lab [address] [place] [phone] Wilbert Adkins MD [address] [phone] Encounter for gynecological examination (general) (routine) without [...] lesion or malignancy 03/29/2024 8:39 AM EST [facility] General Categorization Negative 03/29/2024 8:39 AM EST [facility] Other Findings Atrophy 03/29/2024 8:39 AM [facility] Specimen Adequacy Satisfactory for evaluation 03/29/2024 8:39 AM [facility] Pap Methodology Liquid Based Pap Test 03/29/2024 8:39 AM [facility] Disclaimer The Pap test is a screening test which carries an inherent false negative rate. These test results should be correlated with the patient's clinical findings and history. This Pap test was processed using an automated screening system. Technical cytopathology services provided by [facility], at [address] [place] [address] (CLIA # [id number]/Hari Foley MD, Commercial Cleaner.) 03/29/2024 8:39 AM [facility] Console Pap Interpretation Reported 03/29/2024 8:39 AM [facility] Brushing/Spatula Cervix uteri structure / Unknown 03/23/2024 03/26/2024 7:29 AM EST us Wilbert Adkins MD LAB CYTOLOGY ORDERABLES Final Result [facility] [address] [place] [address], documented in this encounter Visit Diagnoses Diagnosis Encounter for gynecological examination (general) (routine) without abnormal findings documented in this encounter Care Teams Testing Manager Relationship Specialty Start Date End Date Gregg Farah MD [address] [place] [phone] PCP - General Internal Medicine 07/11/12 documented as of this encounter
--- OUTSIDE RECORDS SUMMARY | 2024-08-03 08:07 | XMS_ITS | Encounter Summary ---
Author Organization [facility] Address [address] [place] [address] Care Team Providers Care Anesthesia Assistant Name Role Phone Gregg Farah MD Primary Care Provider [phone] Encounter Details Date Type Department Care Team (Late st Contact Info) Description 07/22/2024 Lab Requisition [facility] - Main Lab [address] [facility] [place] [address] Virginia Ellis [address] [facility] [address] [place] [address] Obesity, unspecified; Essential (primary) hypertension; Personal history of other endocrine, nutritional and metabolic disease; Endocrine disorder, unspecified; Chronic fatigue, unspecified Social History Tobacco Use Types Packs/Day Years [...] Procedure Name Priority Date/Time Associated Diagnosis Comments LIPID PANEL WITH REFLEX TO DIRECT LDL Routine 07/22/2024 12:00 AM EST Obesity, unspecified Essential (primary) hypertension Personal history of other endocrine, nutritional and metabolic disease Endocrine disorder, unspecified Chronic fatigue, unspecified INSULIN, TOTAL Routine 07/22/2024 12:00 AM EST Obesity, unspecified Essential (primary) hypertension Personal history of other endocrine, nutritional and metabolic disease Endocrine disorder, unspecified Chronic fatigue, unspecified VITAMIN D 25 HYDROXY Routine 07/22/2024 12:00 [...] disease Endocrine disorder, unspecified Chronic fatigue, unspecified documented in this encounter Results * Vitamin D 25 hydroxy (07/22/2024 12:00 AM EST) Vit D, 25-Hydroxy 47.8 30.0 - 80.0 ng/mL LAB CHEMISTRY METHOD 07/23/2024 3:42 AM EDT [facility] Blood Venous blood specimen / Unknown 07/22/2024 07/22/2024 2:16 PM EDT [employer] LAB BLOOD ORDERABLES Final Resul t Performing Organization Address [facility]/ZIP Co de Phone Number [facility] [address] [place] [address], [place] [phone] * Insulin, total (07/22/2024 12:00 AM EST) Pathologist [facility] Insulin 7.9 3.0 - 25.0 mcIU/mL LAB CHEMISTRY METHOD 07/22/2024 8:28 PM EDT [facility] Blood Venous blood specimen / Unknown 07/22/2024 07/22/2024 2:16 PM EDT Narrative [facility] - 07/22/2024 8:28 PM EDT Insulin reference range based on fasting status. ??Insulin values vary in non- fasting individuals. [facility] LAB BLOOD ORDERABLES Final Resul t Performing Organization Address [facility] Co de Phone Number [facility] [address] [place] [address], [place] [phone] * Thyroid stimulating hormone (07/22/2024 12:00 AM EST) [facility] TSH 2.91 0.40 - 4.00 mcIU/mL LAB CHEMISTRY METHOD 07/22/2024 8:30 PM EDT [facility] Blood Venous blood specimen / Unknown 07/22/2024 07/22/2024 2:16 PM EDT [employer] LAB BLOOD ORDERABLES Final Resul t Performing Organization Address [facility] Co de Phone Number [facility] [address] [place] [address], [place] [phone] * Hemoglobin A1c (07/22/2024 12:00 AM EST) Pathologist [facility] Hemoglobin A1C 5.7 <6.5 % LAB CHEMISTRY METHOD 07/23/2024 1:46 PM EDT [facility] Mean Bld Glu Estim. 117 mg/dL LAB CHEMISTRY METHOD 07/23/2024 1:46 PM EDT [facility] Blood Venous blood specimen / Unknown 07/22/2024 07/22/2024 2:16 PM EDT us Coleman Caleb LAB BLOOD ORDERABLES Final Resul t Performing Organization Address City/[facility]/ZIP Co de Phone Number [facility] [address] [place] [address], [place] [phone] * Folate (07/22/2024 12:00 AM EST) [facility] Folate 16.9 2.8 - 17.0 ng/ml LAB CHEMISTRY METHOD 07/22/2024 8:42 PM EDT [facility] Blood Venous blood specimen / Unknown 07/22/2024 07/22/2024 2:16 PM EDT us Coleman Caleb LAB BLOOD ORDERABLES Final Resul t Performing Organization Address [facility] de Phone Number [facility] [address] [place] [address], [place] [phone] * (ABNORMAL) Vitamin B12 (07/22/2024 12:00 AM EST) [facility] Vitamin B-12 233(L) 250 - 900 pcg/mL LAB CHEMISTRY METHOD 07/22/2024 8:42 PM EDT [facility] Blood Venous blood specimen / Unknown 07/22/2024 07/22/2024 2:16 PM EDT us Coleman Caleb LAB BLOOD ORDERABLES Final Resul t Performing Organization Address City/[facility]/ZIP Co de Phone Number [facility] [address] [place] [address], [place] [phone] * (ABNORMAL) Complete blood count (07/22/2024 12:00 AM EST) [facility] WBC 8.7 4.8 - 10.8 K/mcL LAB HEMETOLOGY METHOD 07/22/2024 7:49 PM [facility] RBC 4.20 3.80 - 4.80 M/mcL LAB HEMETOLOGY METHOD 07/22/2024 7:49 PM [facility] Hemoglobin 13.1 11.5 - 16.0 g/dL LAB HEMETOLOGY METHOD 07/22/2024 7:49 PM [facility] Hematocrit 39.2 35.0 - 47.0 % LAB HEMETOLOGY METHOD 07/22/2024 7:49 PM [facility] MCV 93.6 79.0 - 98.0 FL LAB HEMETOLOGY METHOD 07/22/2024 7:49 PM [facility] MCH 31.3 27.0 - 32.0 pcg LAB HEMETOLOGY METHOD 07/22/2024 7:49 PM [facility] MCHC 33.4 32.0 - 37.0 g/dL LAB HEMETOLOGY METHOD 07/22/2024 7:49 PM [facility] RDW 11.9 11.0 - 15.0 % LAB HEMETOLOGY METHOD 07/22/2024 7:49 PM [facility] Platelets 411(H) 130 - 400 K/mcL LAB HEMETOLOGY METHOD 07/22/2024 7:49 PM [facility] MPV 9.2 7.0 - 11.0 FL LAB HEMETOLOGY METHOD 07/22/2024 7:49 PM [facility] NRBC 0.0 <1.0 % LAB HEMETOLOGY METHOD 07/22/2024 7:49 PM [facility] NRBC Absolute 0.00 <0.10 K/mcL LAB HEMETOLOGY METHOD 07/22/2024 7:49 PM EDT [facility] Blood Venous blood specimen / Unknown 07/22/2024 07/22/2024 2:16 PM EDT Virginia Ellis LAB BLOOD ORDERABLES Final Resul t Performing Organization Address City/[facility]/ZIP Co de Phone Number [facility] [address] [place] [address], [place] [phone] * (ABNORMAL) Lipid panel with reflex to direct LDL (07/22/2024 12:00 AM EST) Cholesterol 180 0 - 200 mg/dL LAB CHEMISTRY METHOD 07/22/2024 8:20 PM EDT [facility] Triglycerides 192(H) 0 - 150 mg/dL LAB CHEMISTRY METHOD 07/22/2024 8:20 PM EDT [facility] HDL 53 >=40 mg/dL LAB CHEMISTRY METHOD 07/22/2024 8:20 PM EDT [facility] LDL Calculated 89 0 - 100 mg/dL LAB CHEMISTRY METHOD 07/22/2024 8:20 PM EDT [facility] VLDL Cholesterol Bird 38.4 mg/dL LAB CHEMISTRY METHOD 07/22/2024 8:20 PM EDT [facility] Non HDL Chol. (LDL+VLDL) 127 <145 mg/dL LAB CHEMISTRY METHOD 07/22/2024 8:20 PM EDT [facility] Chol/HDL Ratio 3.4 0.0 - 4.4 LAB CHEMISTRY METHOD 07/22/2024 8:20 PM EDT [facility] Blood Venous blood specimen / Unknown 07/22/2024 07/22/2024 2:16 PM EDT Virginia Ellis LAB BLOOD ORDERABLES Final Resul t Performing Organization Address City/[facility]/ZIP Co de Phone Number [facility] [address] [place] [address], [place] [phone] * Comprehensive metabolic panel (07/22/2024 12:00 AM EST) Sodium 139 133 - 145 mmol/L LAB CHEMISTRY METHOD 07/22/2024 8:20 PM [facility] Potassium 3.9 3.5 - 5.5 mmol/L LAB CHEMISTRY METHOD 07/22/2024 8:20 PM [facility] Chloride 105 96 - 110 mmol/L LAB CHEMISTRY METHOD 07/22/2024 8:20 PM [facility] CO2 29 21 - 32 mmol/L LAB CHEMISTRY METHOD 07/22/2024 8:20 PM [facility] Anion Gap 5 3 - 11 LAB CHEMISTRY METHOD 07/22/2024 8:20 PM [facility] Glucose 87 70 - 100 mg/dL LAB CHEMISTRY METHOD 07/22/2024 8:20 PM [facility] BUN 13 5 - 25 mg/dL LAB CHEMISTRY METHOD 07/22/2024 8:20 PM [facility] Creatinine 0.70 0.50 - 1.10 mg/dL LAB CHEMISTRY METHOD 07/22/2024 8:20 PM [facility] eGFR 94 >=60 mL/min/1. 73m2 LAB CHEMISTRY METHOD 07/22/2024 8:20 PM [facility] Comment:Calculation based on the??Chronic Kidney Disease Epidemiology Collaboration (CKD-EPI) equation refit??without adjustment for race. BUN/Creatinine Ratio 18.6 LAB CHEMISTRY METHOD 07/22/2024 8:20 PM [facility] Calcium 9.6 8.5 - 10.5 mg/dL LAB CHEMISTRY METHOD 07/22/2024 8:20 PM [facility] AST (SGOT) 29 10 - 42 unit/L LAB CHEMISTRY METHOD 07/22/2024 8:20 PM EDT [facility] ALT (SGPT) 38 10 - 60 unit/L LAB CHEMISTRY METHOD 07/22/2024 8:20 PM EDT [facility] Alkaline Phosphatase 83 42 - 121 unit/L LAB CHEMISTRY METHOD 07/22/2024 8:20 PM EDT [facility] Total Protein 7.0 6.0 - 8.0 g/dL LAB CHEMISTRY METHOD 07/22/2024 8:20 PM EDT [facility] Albumin 3.8 3.2 - 5.0 g/dL LAB CHEMISTRY METHOD 07/22/2024 8:20 PM EDT [facility] Total Bilirubin 0.6 0.0 - 1.4 mg/dL LAB CHEMISTRY METHOD 07/22/2024 8:20 PM EDT [facility] Blood Venous blood specimen / Unknown 07/22/2024 07/22/2024 2:16 PM EDT us Virginia Ellis LAB BLOOD ORDERABLES Final Resul t [facility] [address] [place] [address], documented in this encounter Visit Diagnoses Diagnosis Obesity, unspecified Essential (primary) hypertension Unspecified essential hypertension Personal history of other endocrine, nutritional and metabolic disease Endocrine disorder, unspecified Chronic fatigue, unspecified documented in this encounter Care Teams Anesthesia Assistant Relationship Specialty Start Date End Date Gregg Farah MD [address] [place] [phone] PCP - General Internal Medicine 07/11/12 documented as of this encounter
--- NOTE | 2024-08-03 08:23 | MHC.OFFVIS ---
Vital Signs 08/03/24 08:26 Height 5 ft 6 in Weight 189 lb BMI 30.5 Intake Visit Reasons: OV RT 4th MCP minimally displaced fx, DOI 07/03/24 Intake Note: Marita is a 68 year old right hand dominant female who presents today for a follow up visit for h Right 4th metacarpal fracture s/p slip and fall DOI: 07/03/2024. At her visit on 07/20/24 patient was placed into a 3 finger ulnar gutter cast. Patient reports she is doing well. Denies any numbness, tingling, finger locking. Allergies Seasonal Allergies Allergy (Intermediate, Verified 08/03/24 08:25) Runny Nose amoxicillin Allergy (Mild, Verified 08/03/24 08:25) Rash HPI HPI OV RT 4th MCP minimally displaced fx, DOI 07/03/24: Details: Marita is a 68 year old right hand dominant female who presents today for a follow up visit for h Right 4th metacarpal fracture s/p slip and fall DOI: 07/03/2024. At her visit on 07/20/24 patient was placed into a 3 finger ulnar gutter cast. Patient reports she is doing well. Denies any numbness, tingling, finger locking. PFSH Medical History Subarachnoid hemorrhage Hyperthyroidism Hypertension Surgical History Hx of cholecystectomy Family History Father Hypertension Social History Household Members: Spouse Both parents involved: No Caregiver staying overnight: No Housing: House Are you a primary director of managed care to a significant other at home: No Do you presently have visiting nurse or other home services: No 75 years or older and lives alone: No Alcohol intake: never Patient Tobacco Use Status: Never used Tobacco e-Cigarette/Vaping Use: Never Used Second Hand Smoke Exposure: No service: No Current occupational status: employed 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 Neuro: Normal sensation of the tips of all digits of the right hand at this time Vascular: Cap refill brisk Pain: No tenderness to palpation over the right 4th metacarpal No Pain with range of motion of the 3rd through 5th digits of the right Skin: No lacerations or abrasions. General: No further edema noted over the right 4th metacarpal No ecchymosis, erythema, or evidence of infection. Psych: Appears grossly normal Affect normal Attitude cooperative Results Reviewed Results Reviewed: X-rays obtained in the office today and independently reviewed by me, Mike Betts PA-C, demonstrate nondisplaced fracture of the right 4th metacarpal shaft with evidence of interval bony healing. Assessment & Plan Assessment & Plan (1) Fracture of fourth metacarpal bone of right hand: Code(s): S62.304A - Unspecified fracture of fourth metacarpal bone, right hand, initial encounter for closed fracture Category: Medical Plan 1. Proximal right 4th metacarpal fracture Date of injury 07/03/2024 Patient appears to be recovering well from her injury Patient was educated about the typical recovery course At this time, patient was given a Velcro wrist splint to wear with daytime activities, as well as srinivasan tape to wear while awake Patient was educated that she should come out of the Velcro wrist splint while at rest to work on wrist range of motion Patient was amenable to this plan Patient will follow-up in 4 weeks with repeat x-rays for reassessment, sooner with any acute concerns Orders: Orders XR hand RT min 3V Today M79.641 - Pain in right hand Coding Level of Care Code Global (44564) Diagnoses Fracture of fourth metacarpal bone of right hand S62.304A
[2024-08-03 08:26] VITALS: BMI 30.5
== END 2024-08-03 08:37 | disposition home or self-care (01) ==
LOC: HO.HOS 08:04
PROVIDERS: PCP Family Medicine
DX: S62.304A Unspecified fracture of fourth metacarpal bone, right hand, initial encounter for closed fracture (principal)
CPT/HCPCS: 99024

== ENCOUNTER → 2024-08-03 08:08 | Outpatient (BNV) | payer OTHER, SELFPAY | PROVIDERS: Visit Provider Radiology Diagnostic Radiology | DX: M79.641 Pain in right hand (principal) | CPT/HCPCS: 73130 ==

== ENCOUNTER 2024-08-03 08:28 | Outpatient (REF) | payer OTHER, SELFPAY ==
--- NOTE | ~2024-08-03 | XR_ITS ---
EXAMINATION: XR HAND 3 OR MORE VIEWS RIGHT HISTORY: M79.641 - Pain in right hand COMPARISON: Comparison is made with the prior examination dated 07/20/2024. FINDINGS: Three views of the right hand are submitted. Osseous mineralization is normal. Again seen is an oblique fracture of the base of the 4th metacarpal. There is been slight blurring of the fracture margins since the prior study, consistent with healing. The joint spaces are preserved. The soft tissues are unremarkable. XR/XR hand RT min 3V IMPRESSION: Healing oblique fracture of the base of the 4th metacarpal. Electronically signed by: Bob Odell MD 08/03/2024 03:50 PM EDT
== END 2024-08-03 08:29 | disposition home or self-care (01) ==
LOC: HO.HOSX 08:28
DX: M79.641 Pain in right hand (principal)
CPT/HCPCS: 73130

== ENCOUNTER 2024-08-31 07:56 | Outpatient (REF) | payer OTHER, SELFPAY ==
--- NOTE | ~2024-08-31 | XR_ITS ---
EXAMINATION: XR HAND 3 OR MORE VIEWS RIGHT HISTORY: M79.641 - Pain in right hand COMPARISON: Comparison is made with the prior examination dated 08/03/2024. FINDINGS: Four views of the right hand are submitted. Osseous mineralization is normal. Again seen is an oblique fracture of the proximal 4th metacarpal. The fracture line remains visible. The joint spaces are preserved. The soft tissues are unremarkable. XR/XR hand RT min 3V IMPRESSION: Oblique fracture of the proximal 4th metacarpal without significant change. Electronically signed by: Bob Odell MD 08/31/2024 08:30 AM EDT
--- OUTSIDE RECORDS SUMMARY | 2024-08-31 08:11 | XMS_ITS | Encounter Summary ---
Author Organization [facility] [place] [address] Care Team Providers Care Model Home Sales Greeter Name Role Phone Gregg Farah MD Primary Care Provider [phone] Encounter Details Date Type Department Care Team (Latest Contact Info) Description 03/26/2024 Lab Requisition [facility] - Main Lab [address] [place] [phone] Wilbert Adkins MD [address] [phone] Encounter for gynecological examination (general) (routine) without [...] 8:39 AM EST [facility] General Categorization Negative 03/29/2024 8:39 AM EST [facility] Other Findings Atrophy 03/29/2024 [...] by [facility], at [address] [place] [address] (CLIA # [id number]/Hari Foley MD, Guard Sergeant.) 03/29/2024 8:[address] [facility] Console Pap Interpretation Reported 03/29/2024 8:[address] [facility] Brushing/Spatula Cervix uteri structure / Unknown 03/23/2024 03/26/2024 7:29 AM EST us Wilbert Adkins MD LAB CYTOLOGY ORDERABLES Final Result [facility] [address] [place] [address], documented in this encounter Visit Diagnoses Diagnosis Encounter for gynecological examination (general) (routine) without abnormal findings documented in this encounter Care Teams Model Home Sales Greeter Relationship Specialty Start Date End Date Gregg Farah MD [address] [place] [phone] PCP - General Internal Medicine 07/11/12 documented as of this encounter
--- OUTSIDE RECORDS SUMMARY | 2024-08-31 08:11 | XMS_ITS | Encounter Summary ---
Author Organization Gabriella [facility] Address [address] [place] [address] Care Team Providers Care Gas Operations Superintendent Name Role Phone Gregg Farah MD Primary Care Provider Encounter Details Date Type Department Care Team (Late st Contact Info) Description 07/22/2024 Lab Requisition [facility] - Main Lab [address] [facility] [place] [address] Virginia Ellis [address] [facility] [address] [place] [address] Obesity, unspecified; Essential (primary) hypertension; [...] LAB CHEMISTRY METHOD 07/23/2024 3:42 AM EDT [facility] ([facility]) [facility] Blood Venous blood specimen / Unknown 07/22/2024 07/22/2024 2:16 PM EDT [employer] LAB BLOOD ORDERABLES Final Resul t Performing Organization Address [facility]/ZIP Co de Phone Number [facility] [address] [place] [address], [place] [phone] * Insulin, total (07/22/2024 12:00 AM EST) Pathologist [facility] Insulin 7.9 3.0 - 25.0 mcIU/mL LAB CHEMISTRY METHOD 07/22/2024 8:28 PM EDT [facility] Blood Venous blood specimen / Unknown 07/22/2024 07/22/2024 2:16 PM EDT Narrative [facility] - 07/22/2024 8:28 PM EDT Insulin reference range based on fasting status. ??Insulin values vary in non- fasting individuals. [facility] LAB BLOOD ORDERABLES Final Resul t Performing Organization Address [facility] Co de Phone Number [facility] [address] [place] [address], [place] [phone] * Thyroid stimulating hormone (07/22/2024 12:00 AM EST) [facility] TSH 2.91 0.40 - 4.00 mcIU/mL LAB CHEMISTRY METHOD 07/22/2024 8:30 PM EDT [facility] Blood Venous blood specimen / Unknown 07/22/2024 07/22/2024 2:16 PM EDT [facility] LAB BLOOD ORDERABLES Final Resul t Performing Organization Address [facility] Co de Phone Number [facility] [address] [place] [address], [place] [phone] * Hemoglobin A1c (07/22/2024 12:00 AM EST) Pathologist [facility] Hemoglobin A1C 5.7 <6.5 % LAB CHEMISTRY METHOD 07/23/2024 1:46 PM EDT [facility] Mean Bld Glu Estim. 117 mg/dL LAB CHEMISTRY METHOD 07/23/2024 1:46 PM EDT [facility] Blood Venous blood specimen / Unknown 07/22/2024 07/22/2024 2:16 PM EDT us Coleman Caleb LAB BLOOD ORDERABLES Final Resul t Performing Organization Address City/[facility]/ZIP Co de Phone Number [facility] [address] [place] [address], [place] [phone] * Folate (07/22/2024 12:00 AM EST) [facility] Folate 16.9 2.8 - 17.0 ng/ml LAB CHEMISTRY METHOD 07/22/2024 8:42 PM EDT [facility] Blood Venous blood specimen / Unknown 07/22/2024 07/22/2024 2:16 PM EDT us Coleman Caleb LAB BLOOD ORDERABLES Final Resul t Performing Organization Address [facility] de Phone Number [facility] [address] [place] [address], [place] [phone] * (ABNORMAL) Vitamin B12 (07/22/2024 12:00 AM EST) [facility] Vitamin B-12 233(L) 250 - 900 pcg/mL LAB CHEMISTRY METHOD 07/22/2024 8:42 PM EDT [facility] Blood Venous blood specimen / Unknown 07/22/2024 07/22/2024 2:16 PM EDT us Coleman Caleb LAB BLOOD ORDERABLES Final Resul t Performing Organization Address City/[facility]/ZIP Co de Phone Number [facility] [address] [place] [address], [place] [phone] * (ABNORMAL) Complete blood count (07/22/2024 12:00 AM EST) [facility] WBC 8.7 4.8 - 10.8 K/mcL LAB HEMETOLOGY METHOD 07/22/2024 7:[address] [facility] RBC 4.20 3.80 - 4.80 M/mcL LAB HEMETOLOGY METHOD 07/22/2024 7:[address] [facility] Hemoglobin 13.1 11.5 - 16.0 g/dL LAB HEMETOLOGY METHOD 07/22/2024 7:[address] [facility] Hematocrit 39.2 35.0 - 47.0 % LAB HEMETOLOGY METHOD 07/22/2024 7:[address] [facility] MCV 93.6 79.0 - 98.0 FL LAB HEMETOLOGY METHOD 07/22/2024 7:[address] [facility] MCH 31.3 27.0 - 32.0 pcg LAB HEMETOLOGY METHOD 07/22/2024 7:[address] [facility] MCHC 33.4 32.0 - 37.0 g/dL LAB HEMETOLOGY METHOD 07/22/2024 7:[address] [facility] RDW 11.9 11.0 - 15.0 % LAB HEMETOLOGY METHOD 07/22/2024 7:[address] [facility] Platelets 411(H) 130 - 400 K/mcL LAB HEMETOLOGY METHOD 07/22/2024 7:[address] [facility] MPV 9.2 7.0 - 11.0 FL LAB HEMETOLOGY METHOD 07/22/2024 7:[address] [facility] NRBC 0.0 <1.0 % LAB HEMETOLOGY METHOD 07/22/2024 7:[address] [facility] NRBC Absolute 0.00 <0.10 K/mcL LAB HEMETOLOGY METHOD 07/22/2024 7:49 PM EDT [facility] Blood Venous blood specimen / Unknown 07/22/2024 07/22/2024 2:16 PM EDT Virginia Ellis LAB BLOOD ORDERABLES Final Resul t Performing Organization Address City/[facility]/ZIP Co de Phone Number [facility] [address] [place] [address], [place] [phone] * (ABNORMAL) Lipid panel with reflex to direct LDL (07/22/2024 12:00 AM EST) Cholesterol 180 0 - 200 mg/dL LAB CHEMISTRY METHOD 07/22/2024 8:20 PM EDT [facility] Triglycerides 192(H) 0 - 150 mg/dL LAB CHEMISTRY METHOD 07/22/2024 8:20 PM EDT [facility] HDL 53 >=40 mg/dL LAB CHEMISTRY METHOD 07/22/2024 8:20 PM EDT [facility] LDL Calculated 89 0 - 100 mg/dL LAB CHEMISTRY METHOD 07/22/2024 8:20 PM EDT [facility] VLDL Cholesterol Bird 38.4 mg/dL LAB CHEMISTRY METHOD 07/22/2024 8:20 PM EDT [facility] Non HDL Chol. (LDL+VLDL) 127 <145 mg/dL LAB CHEMISTRY METHOD 07/22/2024 8:20 PM EDT [facility] Chol/HDL Ratio 3.4 0.0 - 4.4 LAB CHEMISTRY METHOD 07/22/2024 8:20 PM EDT [facility] Blood Venous blood specimen / Unknown 07/22/2024 07/22/2024 2:16 PM EDT Virginia Ellis LAB BLOOD ORDERABLES Final Resul t Performing Organization Address City/[facility]/ZIP Co de Phone Number [facility] [address] [place] [address], [place] [phone] * Comprehensive metabolic panel (07/22/2024 12:00 AM EST) Sodium 139 133 - 145 mmol/L LAB CHEMISTRY METHOD 07/22/2024 8:[address] [facility] Potassium 3.9 3.5 - 5.5 mmol/L LAB CHEMISTRY METHOD 07/22/2024 8:[address] [facility] Chloride 105 96 - 110 mmol/L LAB CHEMISTRY METHOD 07/22/2024 8:[address] [facility] CO2 29 21 - 32 mmol/L LAB CHEMISTRY METHOD 07/22/2024 8:[address] [facility] Anion Gap 5 3 - 11 LAB CHEMISTRY METHOD 07/22/2024 8:[address] [facility] Glucose 87 70 - 100 mg/dL LAB CHEMISTRY METHOD 07/22/2024 8:[address] [facility] BUN 13 5 - 25 mg/dL LAB CHEMISTRY METHOD 07/22/2024 8:[address] [facility] Creatinine 0.70 0.50 - 1.10 mg/dL LAB CHEMISTRY METHOD 07/22/2024 8:[address] [facility] eGFR 94 >=60 mL/min/1. 73m2 LAB CHEMISTRY METHOD 07/22/2024 8:[address] [facility] Comment:Calculation based on the??Chronic Kidney Disease Epidemiology Collaboration (CKD-EPI) equation refit??without adjustment for race. BUN/Creatinine Ratio 18.6 LAB CHEMISTRY METHOD 07/22/2024 8:[address] [facility] Calcium 9.6 8.5 - 10.5 mg/dL LAB CHEMISTRY METHOD 07/22/2024 8:[address] [facility] AST (SGOT) 29 10 - 42 unit/L LAB CHEMISTRY METHOD 07/22/2024 8:20 PM EDT [facility] ALT (SGPT) 38 10 - 60 unit/L LAB CHEMISTRY METHOD 07/22/2024 8:20 PM EDT [facility] Alkaline Phosphatase 83 42 - 121 unit/L LAB CHEMISTRY METHOD 07/22/2024 8:20 PM EDT [facility] Total Protein 7.0 6.0 - 8.0 g/dL LAB CHEMISTRY METHOD 07/22/2024 8:20 PM EDT [facility] Albumin 3.8 3.2 - 5.0 g/dL LAB CHEMISTRY METHOD 07/22/2024 8:20 PM EDT [facility] Total Bilirubin 0.6 0.0 - 1.4 mg/dL LAB CHEMISTRY METHOD 07/22/2024 8:20 PM EDT [facility] Blood Venous blood specimen / Unknown 07/22/2024 07/22/2024 2:16 PM EDT us Virginia Ellis LAB BLOOD ORDERABLES Final Resul t [facility] [address] [place] [address], documented in this encounter Visit Diagnoses Diagnosis Obesity, unspecified Essential (primary) hypertension Unspecified essential hypertension Personal history of other endocrine, nutritional and metabolic disease Endocrine disorder, unspecified Chronic fatigue, unspecified documented in this encounter Care Teams Gas Operations Superintendent Relationship Specialty Start Date End Date Gregg Farah MD [address] [place] [phone] PCP - General Internal Medicine 07/11/12 documented as of this encounter
--- OUTSIDE RECORDS SUMMARY | 2024-08-31 08:11 | XMS_ITS | Clinical Summary ---
Author Organization [facility] [place] [address] Care Team Providers Care Business Strategy Manager Name Role Phone Rudolph Farah MD Primary Care Provider Encounters Date Type Department Care Team Description 07/22/2024 Lab Requisition [facility] - Main Lab 299 [facility] [place] [address] Virginia Ellis Obesity, unspecified; Essential [...] - 2023-2 5 season) 2024 Influenza Vaccine (Season Ended) 2025 01/27/20 20 Breast Cancer Screening 06/02/2025 06/02/2023 Hypertension/CHF/CAD Annual BMP Blood Test 07/22/2025 07/22/2024 Cholesterol Screening (Lipid Panel) 07/22/2029 07/22/2024 RSV Immunization Adult Patie nts (1 - 1-dose 75+ series) 10/14/2030 Osteoporosis [...] age to complete this topic Meningococcal B Vaccine Aged Out No l onger eligible based on patient's age to complete [...] COLONOSCOPY REPORT Routine 07/09/2024 9:19 AM EST GOPAL SCREENING DIGITAL Routine 06/02/2023 8:11 AM EST Encounter for screening mammogram for malignant neoplasm of breast [facility] DEXA AXIAL SKELETON Routine 06/02/2023 8:01 AM EST Encounter for screening for osteoporosis from Last 3 Months or Most Recently Relevant to Health Maintenance Results * (ABNORMAL) Lipid panel with reflex to direct LDL (07/22/2024 12:00 AM EST) Cholesterol 180 0 - 200 mg/dL LAB CHEMISTRY METHOD 07/22/2024 8:20 PM EDT [facility] Triglycerides 192(H) 0 - 150 mg/dL LAB CHEMISTRY METHOD 07/22/2024 8:20 PM T [facility] HDL 53 >=40 mg/dL LAB CHEMISTRY METHOD 07/22/2024 8:20 PM EDT [facility] LDL Calculated 89 0 - 100 mg/dL LAB CHEMISTRY METHOD 07/22/2024 8:20 PM EDT [facility] VLDL Cholesterol Bird 38.4 mg/dL LAB CHEMISTRY METHOD 07/22/2024 8:20 PM EDT [facility] Non HDL Chol. (LDL+VLDL) 127 <145 mg/dL LAB CHEMISTRY METHOD 07/22/2024 8:20 PM EDT [facility] Chol/HDL Ratio 3.4 0.0 - 4.4 LAB CHEMISTRY METHOD 07/22/2024 8:20 PM EDT [facility] Blood Venous blood specimen / Unknown 07/22/2024 07/22/2024 2:16 PM EDT [facility] LAB BLOOD ORDERABLES Final Resul t Performing Organization Address City/[facility]/ZIP Co de Phone Number [facility] [address] [place] [address], [place] [phone] * Insulin, total (07/22/2024 12:00 AM EST) Insulin 7.9 3.0 - 25.0 mcIU/mL LAB CHEMISTRY METHOD 07/22/2024 8:28 PM EDT [facility] Blood Venous blood specimen / Unknown 07/22/2024 07/22/2024 2:16 PM EDT Narrative [facility] - 07/22/2024 8:28 PM EDT Insulin reference range based on fasting status. ??Insulin values vary in non- fasting individuals. [facility] LAB BLOOD ORDERABLES Final Resul t [facility] [address] [place] [address], [place] [phone] * Vitamin D 25 hydroxy (07/22/2024 12:00 AM EST) Pathologist [facility] Vit D, 25-Hydroxy 47.8 30.0 - 80.0 ng/mL LAB CHEMISTRY METHOD 07/23/2024 3:42 AM EDT [facility] Blood Venous blood specimen / Unknown 07/22/2024 07/22/2024 2:16 PM EDT Virginia Ellis LAB BLOOD ORDERABLES Final Resul t [facility] [address] [place] [address], * (ABNORMAL) Complete blood count (07/22/2024 12:00 AM EST) [facility] WBC 8.7 4.8 - 10.8 K/mcL LAB HEMETOLOGY METHOD 07/22/2024 7:49 PM EDT [facility] RBC 4.20 3.80 - 4.80 M/mcL LAB HEMETOLOGY METHOD 07/22/2024 7:49 PM EDT [facility] Hemoglobin 13.1 11.5 - 16.0 g/dL LAB HEMETOLOGY METHOD 07/22/2024 7:49 PM EDT [facility] Hematocrit 39.2 35.0 - 47.0 % LAB HEMETOLOGY METHOD 07/22/2024 7:49 PM EDT [facility] MCV 93.6 79.0 - 98.0 FL LAB HEMETOLOGY METHOD 07/22/2024 7:49 PM EDT [facility] MCH 31.3 27.0 - 32.0 pcg LAB HEMETOLOGY METHOD 07/22/2024 7:49 PM EDT [facility] MCHC 33.4 32.0 - 37.0 g/dL LAB HEMETOLOGY METHOD 07/22/2024 7:49 PM EDT [facility] RDW 11.9 11.0 - 15.0 % LAB HEMETOLOGY METHOD 07/22/2024 7:49 PM EDT [facility] Platelets 411(H) 130 - 400 K/mcL LAB HEMETOLOGY METHOD 07/22/2024 7:49 PM EDT [facility] MPV 9.2 7.0 - 11.0 FL LAB HEMETOLOGY METHOD 07/22/2024 7:49 PM EDT [facility] NRBC 0.0 <1.0 % LAB HEMETOLOGY METHOD 07/22/2024 7:49 PM EDT [facility] NRBC Absolute 0.00 <0.10 K/mcL LAB HEMETOLOGY METHOD 07/22/2024 7:49 PM EDT [facility] Blood Venous blood specimen / Unknown 07/22/2024 07/22/2024 2:16 PM EDT [facility] LAB BLOOD ORDERABLES Final Resul t Performing Organization Address City/[facility]/ZIP Co de Phone Number [facility] [address] [place] [address], [place] [phone] * Thyroid stimulating hormone (07/22/2024 12:00 AM EST) [facility] TSH 2.91 0.40 - 4.00 mcIU/mL LAB CHEMISTRY METHOD 07/22/2024 8:30 PM EDT [facility] Blood Venous blood specimen / Unknown 07/22/2024 07/22/2024 2:16 PM EDT [facility] LAB BLOOD ORDERABLES Final Resul t [facility] [address] [place] [address], [place] [phone] * Hemoglobin A1c (07/22/2024 12:00 AM EST) Hemoglobin A1C 5.7 <6.5 % LAB CHEMISTRY METHOD 07/23/2024 1:46 PM EDT [facility] Mean Bld Glu Estim. 117 mg/dL LAB CHEMISTRY METHOD 07/23/2024 1:46 PM EDT [facility] Blood Venous blood specimen / Unknown 07/22/2024 07/22/2024 2:16 PM EDT Ziliko Virginia Scandid LAB BLOOD ORDERABLES Final Resul t Performing Organization Address City/[facility]/ZIP Co de Phone Number [facility] [address] [place] [address], [place] [phone] * Folate (07/22/2024 12:00 AM EST) Pathologist [facility] Folate 16.9 2.8 - 17.0 ng/ml LAB CHEMISTRY METHOD 07/22/2024 8:42 PM EDT [facility] Blood Venous blood specimen / Unknown 07/22/2024 07/22/2024 2:16 PM EDT [facility] Virginia Scandid LAB BLOOD ORDERABLES Final Resul t Performing Organization Address [facility] Co de Phone Number [facility] [address] [place] [address], [place] [phone] * (ABNORMAL) Vitamin B12 (07/22/2024 12:00 AM EST) Pathologist [facility] Vitamin B-12 233(L) 250 - 900 pcg/mL LAB CHEMISTRY METHOD 07/22/2024 8:42 PM EDT [facility] Blood Venous blood specimen / Unknown 07/22/2024 07/22/2024 2:16 PM EDT Zil[facility] Virginia Scandid LAB BLOOD ORDERABLES Final Resul t Performing Organization Address City/[facility]/ZIP Co de Phone Number [facility] [address] [place] [address], * Comprehensive metabolic panel (07/22/2024 12:00 AM EST) Sodium 139 133 - 145 mmol/L LAB CHEMISTRY METHOD 07/22/2024 8:20 PM [facility] Potassium 3.9 3.5 - 5.5 mmol/L LAB CHEMISTRY METHOD 07/22/2024 8:20 PM [facility] Chloride 105 96 - 110 mmol/L LAB CHEMISTRY METHOD 07/22/2024 8:20 PM [facility] CO2 29 21 - 32 mmol/L LAB CHEMISTRY METHOD 07/22/2024 8:20 PM [facility] Anion Gap 5 3 - 11 LAB CHEMISTRY METHOD 07/22/2024 8:20 PM [facility] Glucose 87 70 - 100 mg/dL LAB CHEMISTRY METHOD 07/22/2024 8:20 PM [facility] BUN 13 5 - 25 mg/dL LAB CHEMISTRY METHOD 07/22/2024 8:20 PM [facility] Creatinine 0.70 0.50 - 1.10 mg/dL LAB CHEMISTRY METHOD 07/22/2024 8:20 PM [facility] eGFR 94 >=60 mL/min/1. 73m2 LAB CHEMISTRY METHOD 07/22/2024 8:20 PM [facility] Comment:Calculation based on the??Chronic Kidney Disease Epidemiology Collaboration (CKD-EPI) equation refit??without adjustment for race. BUN/Creatinine Ratio 18.6 LAB CHEMISTRY METHOD 07/22/2024 8:20 PM [facility] Calcium 9.6 8.5 - 10.5 mg/dL LAB CHEMISTRY METHOD 07/22/2024 8:20 PM [facility] AST (SGOT) 29 10 - 42 unit/L LAB CHEMISTRY METHOD 07/22/2024 8:20 PM [facility] ALT (SGPT) 38 10 - 60 unit/L LAB CHEMISTRY METHOD 07/22/2024 8:20 PM EDT [facility] Alkaline Phosphatase 83 42 - 121 unit/L LAB CHEMISTRY METHOD 07/22/2024 8:20 PM EDT [facility] Total Protein 7.0 6.0 - 8.0 g/dL LAB CHEMISTRY METHOD 07/22/2024 8:20 PM EDT [facility] Albumin 3.8 3.2 - 5.0 g/dL LAB CHEMISTRY METHOD 07/22/2024 8:20 PM EDT [facility] Total Bilirubin 0.6 0.0 - 1.4 mg/dL LAB CHEMISTRY METHOD 07/22/2024 8:20 PM EDT [facility] Blood Venous blood specimen / Unknown 07/22/2024 07/22/2024 2:16 PM EDT Virginia Ellis LAB BLOOD ORDERABLES Final Resul t [facility] [address] [place] [address], * External Colonoscopy Report (07/09/2024 9:19 AM EST) Anatomical Region Laterality Modality Endoscopy Historical Provider GI~PROCEDURE ORDERABLES F inal Result * GOPAL SCREENING DIGITAL (06/02/2023 8:11 AM EST) Anatomical Region Laterality Modality Mammography 06/02/2023 7:02 AM EST Narrative 06/02/2023 8:11 AM EST [facility] Diagnostic Imaging Department [address] [place], [place] [id number] Patient: ??MARITA BERNAL ?/Age/Sex: 1955 - 67 - F Unit#: ??[id number] ? Location/Status: ??SPDIMAM/REG CLI ? Mnemonic/Ordering Site: ??DIGSC/SPMAM Ordering Physician: ??WILBERT ADKINS MD [facility] Screening Digital - 06/02/23 - 722 Report Status:Signed EXAM: [facility] Screening Digital EXAM DATE AND TIME: 06/02/2023 7:24 AM HISTORY: ??Annual screening COMPARISON: ??None TECHNIQUE: Bilateral digital breast tomosynthesis was performed in the CC and MLO projections. Computer aided detection with [employer] 3D 3.1 was employed. TISSUE DENSITY: b. [...] Procedure Note Brenda Mackenzie MD - 01/02/2024 [facility] Diagnostic Imaging Department [address] [place] [address] [id number] Patient: MARITA BERNAL /Age/Sex: 1955 - 67 - F Unit#: [id number] Location/Status: SPDIMAM/REG CLI Mnemonic/Ordering Site: [facility] Ordering Physician: WILBERT ADKINS MD [facility] Screening Digital - 06/02/23 - 722 Report Status:Signed EXAM: [facility] Screening Digital EXAM DATE AND TIME: 06/02/2023 7:24 AM HISTORY: Annual screening COMPARISON: None TECHNIQUE: Bilateral digital breast tomosynthesis was performed in the CCand MLO projections. Computer aided detection with [employer] 3D 3.1was employed. TISSUE DENSITY: b. There [...] MD IMG BI PROCEDURES Final Result * [facility] DEXA AXIAL SKELETON (06/02/2023 8:01 AM EST) Anatomical Region Laterality Modality Mammography 06/02/2023 7:04 AM EST Narrative 06/02/2023 8:01 AM EST [facility] Diagnostic Imaging Department [address] [place] [id number] Patient: ??MARITA BERNAL ?/Age/Sex: 1955 Unit#: ??[id number] ? Location/Status: ??SPDIMAM/REG CLI ? Mnemonic/Ordering Site: ??MAMDEXAAX/SPMAM Ordering Physician: ??WILBERT ADKINS MD [facility] Dexa Axial Skeleton - 06/02/2335 [...] probability of hip fracture of 0.5%. Code 58250 Dictating Physician: ??RUDOLPH QUINTERO MD Electronically Signed by: ??RUDOLPH QUINTERO MD Dic Date/Time: ??06/02/23799 Sign date/Time: ??06/02/23800 Procedure Note Rudolph Quintero MD - 01/02/2024 [facility] Diagnostic Imaging Department [address] [place] [address] Patient: MARITA BERNAL./Age/Sex: 1955 - 67 - F Unit#: [id number] Location/Status: [facility] Mnemonic/Ordering Site: [facility] Ordering Physician: WILBERT ADKINS MD [facility] Dexa Axial Skeleton - 06/02/23 0735 Report Status:Signed HISTORY: The patient is a [...] density of the femurs bilaterally is 1.067 gm/oz7zcydg is 106% of that of young normals [...] probability of hip fracture of 0.5%. Code 39576 Dictating Physician: RUDOLPH QUINTERO MD Electronically Signed by: RUDOLPH QUINTERO MD Dic Date/Time: 06/02/23799 Sign date/Time: 06/02/23800 Wilbert Adkins MD IMG BI PROCEDURES Final Result from Last 3 Months or Most Recently Relevant to [place] [phone] [employer] Care Teams Business Strategy Manager Relationship Specialty Start Date End Date Rudolph Farah MD [address] [place] [phone] PCP - General Internal Medicine 07/11/12
== END 2024-08-31 07:57 | disposition home or self-care (01) ==
LOC: HO.HOSX 07:56
DX: M79.641 Pain in right hand (principal)
CPT/HCPCS: 73130

== ENCOUNTER 2024-08-31 08:04 | Outpatient (AMB) | payer OTHER, SELFPAY ==
--- NOTE | 2024-08-31 08:24 | A.OFFVIS_ITS ---
Vital Signs 08/31/24 08:26 Height 5 ft 6 in Weight 179 lb BMI 28.9 Handedness Right Intake Visit Reasons: RT 4th MCP minimally displaced DOI 07/03/24-w/xray Intake Note: Marita is a 68 year old right hand dominant female who presents today for a follow up visit for her fracture of fourth metacarpal bone of right hand s/p slip and fall DOI: 07/03/24. At last visit patient was given a Velcro wrist splint to wear with daytime activities, as well as srinivasan tape to wear while awake and instructed to work on ROM while at rest with splint off. Patient reports she has no pain, no numbness and no tingling. She states she has stiffness in the right 4th and 5th digits however she is working on gentle ROM at home. Allergies Seasonal Allergies Allergy (Intermediate, Verified 08/31/24 08:26) Runny Nose amoxicillin Allergy (Mild, Verified 08/31/24 08:26) Rash HPI HPI RT 4th MCP minimally displaced DOI 07/03/24-w/xray: Details: Marita is a 68 year old right hand dominant female who presents today for a follow up visit for her fracture of fourth metacarpal bone of right hand s/p slip and fall DOI: 07/03/24. At last visit patient was given a Velcro wrist splint to wear with daytime activities, as well as srinivasan tape to wear while awake and instructed to work on ROM while at rest with splint off. Patient reports she has no pain, no numbness and no tingling. She states she has stiffness in the right 4th and 5th digits however she is working on gentle ROM at home. [facility] Medical History Subarachnoid hemorrhage Hyperthyroidism Hypertension Surgical History Hx of cholecystectomy Family History Father Hypertension Social History Household Members: Spouse Both parents involved: No Caregiver staying overnight: No Housing: House Are you a primary neonatal intensive care unit nurse to a significant other at home: No Do you presently have visiting nurse or other home services: No 75 years or older and lives alone: No Alcohol intake: never Patient Tobacco Use Status: Never used Tobacco e-Cigarette/Vaping Use: Never Used Second Hand Smoke Exposure: No service: No Current occupational status: employed 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 Neuro: Normal sensation of the tips of all digits of the right hand at this time Vascular: Cap refill brisk Pain: No tenderness to palpation over the right 4th metacarpal No Pain with range of motion of the 3rd through 5th digits of the right Skin: No lacerations or abrasions. General: No further edema noted over the right 4th metacarpal No ecchymosis, erythema, or evidence of infection. Psych: Appears grossly normal Affect normal Attitude cooperative Results Reviewed Results Reviewed: X-rays obtained in the office today and independently reviewed by me, Mike Betts PA-C, demonstrate nondisplaced fracture of the right 4th metacarpal shaft with evidence of interval bony healing. Assessment & Plan Assessment & Plan (1) Fracture of fourth metacarpal bone of right hand: Code(s): S62.304A - Unspecified fracture of fourth metacarpal bone, right hand, initial encounter for closed fracture Category: Medical Plan 1. Proximal right 4th metacarpal fracture Date of injury 07/03/2024 Patient appears to be recovering well from her injury Patient was educated about the typical recovery course At this time, patient was given a Velcro wrist splint to wear with high-risk activities, as well as srinivasan tape to wear with daytime activities Patient was educated that she should come out of the Velcro wrist splint while at rest to work on wrist range of motion Advised to progressed to 5-10 lb weight limit over next 2 weeks, 15 lb over the 2 weeks following, and then advised to gradually return back to full normal activity Patient was amenable to this plan Patient will follow-up as needed with any acute concerns Orders: Orders XR hand RT min 3V Today M79.641 - Pain in right hand Coding Level of Care Code Global (83733) Diagnoses Fracture of fourth metacarpal bone of right hand S62.304A
[2024-08-31 08:26] VITALS: BMI 28.9
== END 2024-08-31 08:51 | disposition home or self-care (01) ==
LOC: HO.HOS 08:05
PROVIDERS: PCP Family Medicine
DX: S62.304A Unspecified fracture of fourth metacarpal bone, right hand, initial encounter for closed fracture (principal)
CPT/HCPCS: 99024

== ENCOUNTER → 2024-08-31 08:17 | Outpatient (BNV) | payer OTHER, SELFPAY | PROVIDERS: Visit Provider Radiology Diagnostic Radiology | DX: S62.304A Unspecified fracture of fourth metacarpal bone, right hand, initial encounter for closed fracture (principal) | CPT/HCPCS: 73130 ==

== ENCOUNTER 2024-10-11 11:16 | Outpatient (AMB) | payer OTHER, SELFPAY ==
--- NOTE | 2024-10-11 11:36 | A.OFFPC_ITS ---
Vital Signs 10/11/24 11:38 Height 5 ft 6 in Weight 175 lb 4 oz BMI 28.3 BP 112/74 Blood Pressure Location Lt brachial Position Sitting Respiration 16 Pulse 68 Pulse Source Pulse Oximeter Temp 97.7 F Temp Source Oral Pulse Oximetry (%) 95 Oxygen Delivery Method Room Air Intake Visit Reasons: f/u chronic conditions Intake Note: patient is scheduled to follow up for chronic conditions Allergies Seasonal Allergies Allergy (Intermediate, Verified 08/31/24 08:26) Runny Nose amoxicillin Allergy (Mild, Verified 08/31/24 08:26) Rash Medication List - Last Reconciled 10/11/24 by Wilbert Day MD atenolol 50 mg PO DAILY 90 days betamethasone dipropionate 0.05% 1 appl topical DAILY PRN cholecalciferol (vitamin D3) 50 mcg PO DAILY 90 days ciclopirox 0.77% 1 appl topical BID clobetasol 0.05% 1 appl topical DAILY 90 days epinephrine (EpiPen 2-Indra) 0.3 mg (0.3 mL) IM Q4H PRN 30 days famotidine 40 mg PO DAILY fluticasone propionate 110 mcg/actuation (Flovent HFA) 1 puff inhalation Q12H 30 days hydrochlorothiazide 25 mg PO DAILY ketoconazole 2% topical levothyroxine 75 mcg PO DAILY lorazepam 1 mg PO BEDTIME PRN 30 days mecobalamin (vitamin B12) 1,000 mcg sublingual DAILY 90 days omeprazole 20 mg PO BID rizatriptan 10 mg PO DAILY PRN 28 days tirzepatide (weight loss) (Zepbound) 7.5 mg subcut QWEEK triamcinolone acetonide 0.025% 1 appl topical DAILY zinc sulfate (Orazinc) 50 mg PO .2 times weekly Tobacco use date assessed: 07/01/23 Dental Screening Dental Screen Date: 07/01/23 HPI f/u chronic conditions HPI Details 68 y/o female presents to f/u hypertensi on, chronic conditions. Had fallen on ice and had ordered x-ray for hand pain from April. R Hand x-ray 08/31/24 showed oblique fracture of proximal 4th metacarpal without significant change. Blood pressure today 112/74, 68p. She is on atenolol 50mg, hydrochlorothiazide 25mg daily. [facility] Medical History Subarachnoid hemorrhage Hyperthyroidism Hypertension Surgical History Hx of cholecystectomy Family History Father Hypertension Social History Household Members: Spouse Both parents involved: No Caregiver staying overnight: No Housing: House Are you a primary childcare teacher to a significant other at home: No Do you presently have visiting nurse or other home services: No 75 years or older and lives alone: No Alcohol intake: never Patient Tobacco Use Status: Never used Tobacco e-Cigarette/Vaping Use: Never Used Second Hand Smoke Exposure: No service: No Current occupational status: employed 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 Current occupational exposures/hazards: No Cognitive needs: No Hearing needs: No Vision needs: No Questionnaire Thrive Questionnaire Date Thrive assessed: 06/18/24 I am a: Patient What is your living situation today?: I have a steady place to live Within the past 12 months, did the food you bought not last and you didn't have the money to get more?: Never true Within the past 12 months, did you worry whether your food would run out before you got money to buy more?: Never true Do you have trouble paying for medicines?: No Do you have trouble getting transportation to medical appointments?: No Do you have trouble paying your heating and electricity bill?: No Do you have trouble taking care of your child, family member or friend?: No Do you have trouble with day-to-day activities such as bathing, preparing meals, shopping, managing finances, etc.?: No Are you currently unemployed and looking for a job?: No Are you interested in more education?: No Please select the resources that you would like help with: None Currently or been in a relationship where the following occur: No concerns reported THRIVE Score: 0 GLYNN-7 AMB Questionnaire GLYNN-7 Date GLYNN - 7 assessed: 05/15/24 Source: Developed by Drs. Bob Hedrick, Yudith Navarrete, Navneet Keenan and colleagues, with an educational cydney from [employer]. Review of Systems Const Denies chills, Denies fatigue, Denies fever(s), Denies headache(s) and Denies weakness ENT Denies dizziness and Denies headache(s) Card Denies dyspnea Resp Denies cough, Denies dyspnea, Denies wheezing and Denies other (shortness of breath) Musc Denies numbness and Denies tingling Neuro Denies dizziness, Denies headache(s), Denies numbness, Denies tingling and Denies weakness Psych Denies anxiety and Denies depression Endo Denies fatigue Aller/Immun Denies wheezing Physical exam (Primary Care) Vital Signs: Last Vital Signs Temp 97.7 F 10/11/24 11:38 Pulse 68 10/11/24 11:38 Resp 16 10/11/24 11:38 BP 112/74 10/11/24 11:38 Pulse Ox 95 10/11/24 11:38 Oxygen Delivery Method Room Air 10/11/24 11:38 BMI result Body Mass Index 28.3 Tobacco/Smoking Status: Tobacco use Status Tobacco use date assessed 07/01/23 10/11/24 11:38 Patient Tobacco Use Status Never used Tobacco 10/11/24 11:38 e-Cigarette/Vaping Use Never Used 10/11/24 11:38 Thrive Assessment: Date of Thrive Assessment Date Thrive assessed 06/18/24 10/11/24 11:38 Currently or been in a relationship where the following occur: No concerns reported Const General: well developed; No acute distress Nutritional Appearance: well nourished Orientation/consciousness: patient oriented x3 HENMT Head: Yes normocephalic and Yes atraumatic Eyes General: appearance normal, both eyes and all related structures Pupils: Equal, round and reactive pupils present EOM: EOMs intact bilaterally Resp Effort & Inspection: normal respiratory effort Auscultation: clear to auscultation bilaterally Cardio Rate: regular rate Rhythm: regular rhythm Heart sounds: S1 normal heart sound present, S2 normal heart sound present, no gallops, no murmurs and no rubs Neuro General: patient oriented x3 and gait normal Cranial nerves: Yes Equal, round and reactive pupils present Psych Affect: normal affect Coding Level of Care Code Est Pt Level 3 (30893) Diagnoses Hypertension, essential I10 Fracture of fourth metacarpal bone of right hand S62.304A Assessment & Plan Assessment & Plan (1) Hypertension, essential: Code(s): I10 - Essential (primary) hypertension Category: Medical Plan: Blood?pressure?is?well?controlled.??Goal?is?less?than?140/90 Continue?current?medication?regimen Continue?exercise?and?weight?loss (2) Fracture of fourth metacarpal bone of right hand: Code(s): S62.304A - Unspecified fracture of fourth metacarpal bone, right hand, initial encounter for closed fracture Category: Medical Plan: No?longer?using?cast?or?splint She?is?still?working?on?eglqn-lu-jxinnz?exercises Improving Plan Patient?had?low?B12?and?I?had?sent?a?supplements She?can?get?her?labs?rechecked?at?her?convenience Patient?is?seeing?a?welding inspector?who?has?put?her?on?Zepbound She?has?been?losing?weight?and?I?encouraged?her?to?continue?this
[2024-10-11 11:38] VITALS: BP 112/74; PULSE 68; RESP 16; TEMP 36.5; O2SAT 95; BMI 28.3
--- OUTSIDE RECORDS SUMMARY | 2024-10-11 11:41 | XMS_ITS | Encounter Summary ---
Author Organization [place] [address] Care Team Providers Care Compressed Gas Plant Worker Name Role Phone Wilbert Day MD Primary Care Provider [phone] Encounter Details Date Type Department Care Team (Latest Contact Info) Description 03/26/2024 Lab Requisition [facility] - Main Lab [address] [place] [id number] Wilbert Adkins MD [address] [phone] Encounter for gynecological examination (general) (routine) without abnormal findings Social History Tobacco Use Types Packs/Day Years Used Date Smoking Tobacco: Never Assessed Comments Unknown Sex and Gender Information Value Date Recorded Sex Assigned at Female 08/31/2024 10:16 AM EDT Legal Sex Female 10:00 PM EST Gender Identity Female 08/31/2024 10:16 AM EDT Sexual Orientation Straight 08/31/2024 10 :16 AM EDT documented as of this encounter Plan of [...] screening system. Technical cytopathology services provided by [facility], at [address] [place] [address] (CLIA # [id number]/Hari Foley MD, Branch Banker.) 03/29/2024 8:[address] [facility] Console Pap Interpretation Reported 03/29/2024 8:[address] [facility] Brushing/Spatula Cervix uteri structure / Unknown 03/23/2024 03/26/2024 7:29 AM EST us Wilbert Adkins MD LAB CYTOLOGY ORDERABLES Final Result Performing Organization Address City/State/[facility] Co de Phone Number [facility] [address] [place] [address], documented in this encounter Visit Diagnoses Diagnosis Encounter for gynecological examination (general) (routine) without abnormal findings documented in this encounter Care Teams Compressed Gas Plant Worker Relationship Specialty Start Date End Date Wilbert Day MD [address] [place] [address] Dr Ignacio [place] PCP - General Family Medicine 08/31/24 documented as of this encounter
== END 2024-10-11 12:16 | disposition home or self-care (01) ==
LOC: HO.HMCFM 11:16
PROVIDERS: PCP Family Medicine; Visit Provider Family Medicine
DX: I10 Essential (primary) hypertension (principal); S62.304A Unspecified fracture of fourth metacarpal bone, right hand, initial encounter for closed fracture

== ENCOUNTER → 2024-10-11 11:16 | Outpatient (BNVA) | payer OTHER, SELFPAY | PROVIDERS: PCP Family Medicine; Visit Provider Family Medicine | DX: Z13.89 Encounter for screening for other disorder (principal) ==

== ENCOUNTER 2025-04-24 07:27 | Outpatient (REF) | payer OTHER, SELFPAY ==
--- OUTSIDE RECORDS SUMMARY | 2025-04-24 07:37 | XMS_ITS | Encounter Summary ---
Author Organization [place] [address] Care Team Providers Care Water Commissioner Name Role Phone Wilbert Day MD Primary Care Provider [phone] Encounter Details Date Type Department Care Team (Late st Contact Info) Description 07/22/2024 Lab Requisition [facility] - Main Lab [address] [facility] [place] [address] [place] [employer] [facility] [address] [place] [address] Obesity, unspecified; Essential (primary) hypertension; Personal history [...] D 25 hydroxy (07/22/2024 12:00 AM EST) [facility] Vit D, 25-Hydroxy 47.8 30.0 - 80.0 ng/mL LAB CHEMISTRY METHOD 07/23/2024 3:42 AM EDT [facility] Blood Venous blood specimen / Unknown 07/22/2024 07/22/2024 2:16 PM EDT [employer] [place] [facility] LAB BLOOD ORDERABLES Final Resul t Performing Organization Address [facility] de Phone Number [facility] [address] [place] [address], [place] [phone] * Insulin, total (07/22/2024 12:00 AM EST) Insulin 7.9 3.0 - 25.0 mcIU/mL LAB CHEMISTRY METHOD 07/22/2024 8:28 PM EDT [facility] Blood Venous blood specimen / Unknown 07/22/2024 07/22/2024 2:16 PM EDT Narrative [facility] - 07/22/2024 8:28 PM EDT Insulin reference range based on fasting status. Insulin values vary in non-fasting individuals. [employer] LAB BLOOD ORDERABLES Final Resul t Performing Organization Address [facility] de Phone Number [facility] [address] [place] [address], [place] [phone] * Thyroid stimulating hormone (07/22/2024 12:00 AM EST) TSH 2.91 0.40 - 4.00 mcIU/mL LAB CHEMISTRY METHOD 07/22/2024 8:30 PM EDT [facility] Blood Venous blood specimen / Unknown 07/22/2024 07/22/2024 2:16 PM EDT [employer] LAB BLOOD ORDERABLES Final Resul t Performing Organization Address [facility] Co de Phone Number [facility] [address] [place] [address], [place] [phone] * Hemoglobin A1c (07/22/2024 12:00 AM EST) Pathologist [facility] Hemoglobin A1C 5.7 <6.5 % LAB CHEMISTRY METHOD 07/23/2024 1:46 PM EDT [facility] Mean Bld Glu Estim. 117 mg/dL LAB CHEMISTRY METHOD 07/23/2024 1:46 PM EDT [facility] Blood Venous blood specimen / Unknown 07/22/2024 07/22/2024 2:16 PM EDT [employer] LAB BLOOD ORDERABLES Final Resul t Performing Organization Address City/[facility]/ZIP Co de Phone Number [facility] [address] [place] [address], [place] [phone] * Folate (07/22/2024 12:00 AM EST) [facility] Folate 16.9 2.8 - 17.0 ng/ml LAB CHEMISTRY METHOD 07/22/2024 8:42 PM EDT [facility] Blood Venous blood specimen / Unknown 07/22/2024 07/22/2024 2:16 PM EDT us [place] [facility] LAB BLOOD ORDERABLES Final Resul t Performing Organization Address City/[facility]/ZIP Co de Phone Number [facility] [address] [place] [address], [place] [phone] * (ABNORMAL) Vitamin B12 (07/22/2024 12:00 AM EST) [facility] Vitamin B-12 233(L) 250 - 900 pcg/mL LAB CHEMISTRY METHOD 07/22/2024 8:42 PM EDT [facility] Blood Venous blood specimen / Unknown 07/22/2024 07/22/2024 2:16 PM EDT [employer] LAB BLOOD ORDERABLES Final Resul t [facility] [address] [place] [address], * (ABNORMAL) Complete blood count (07/22/2024 12:00 AM EST) [facility] Signature WBC 8.7 4.8 - 10.8 K/mcL LAB HEMETOLOGY METHOD 07/22/2024 7:49 PM EDT [facility] RBC 4.20 3.80 - 4.80 M/mcL LAB HEMETOLOGY METHOD 07/22/2024 7:49 PM EDT [facility] Hemoglobin 13.1 11.5 - 16.0 g/dL LAB HEMETOLOGY METHOD 07/22/2024 7:49 PM EDT [facility] Hematocrit 39.2 35.0 - 47.0 % LAB HEMETOLOGY METHOD 07/22/2024 7:49 PM EDT [facility] MCV 93.6 79.0 - 98.0 FL LAB HEMETOLOGY METHOD 07/22/2024 7:49 PM EDT [facility] MCH 31.3 27.0 - 32.0 pcg LAB HEMETOLOGY [facility] MCHC 33.4 32.0 - 37.0 g/dL LAB HEMETOLOGY METHOD 07/22/2024 7:49 PM EDT [facility] RDW 11.9 11.0 - 15.0 % LAB HEMETOLOGY METHOD 07/22/2024 7:49 PM EDT [facility] Platelets 411(H) 130 - 400 K/mcL LAB HEMETOLOGY [facility] MPV 9.2 7.0 - 11.0 FL LAB HEMETOLOGY METHOD 07/22/2024 7:49 PM EDT [facility] NRBC 0.0 <1.0 % LAB HEMETOLOGY METHOD 07/22/2024 7:49 PM EDT [facility] NRBC Absolute 0.00 <0.10 K/mcL LAB HEMETOLOGY METHOD 07/22/2024 7:49 PM EDT [facility] Blood Venous blood specimen / Unknown 07/22/2024 07/22/2024 2:16 PM EDT us [place] LAB BLOOD ORDERABLES Final Resul t [facility] [address] [place] [address], * (ABNORMAL) Lipid panel with reflex to direct LDL (07/22/2024 12:00 AM EST) Cholesterol 180 0 - 200 mg/dL LAB CHEMISTRY METHOD 07/22/2024 8:20 PM [facility] Triglycerides 192(H) 0 - 150 mg/dL LAB CHEMISTRY METHOD 07/22/2024 8:20 PM [facility] HDL 53 >=40 mg/dL LAB CHEMISTRY METHOD 07/22/2024 8:20 PM [facility] LDL Calculated 89 0 - 100 mg/dL LAB CHEMISTRY METHOD 07/22/2024 8:20 PM [facility] VLDL Cholesterol Bird 38.4 mg/dL LAB CHEMISTRY METHOD 07/22/2024 8:20 PM T [facility] Non HDL Chol. (LDL+VLDL) 127 <145 mg/dL LAB CHEMISTRY METHOD 07/22/2024 8:20 PM [facility] Chol/HDL Ratio 3.4 0.0 - 4.4 LAB CHEMISTRY METHOD 07/22/2024 8:20 PM [facility] Blood Venous blood specimen / Unknown 07/22/2024 07/22/2024 2:16 PM EDT us [place] LAB BLOOD ORDERABLES Final Resul t [facility] [address] [place] [address], * Comprehensive metabolic panel (07/22/2024 12:00 AM EST) Sodium 139 133 - 145 mmol/L LAB CHEMISTRY METHOD 07/22/2024 8:20 PM T [facility] Potassium 3.9 3.5 - 5.5 mmol/L LAB CHEMISTRY METHOD 07/22/2024 8:20 PM [facility] Chloride 105 96 - 110 mmol/L LAB CHEMISTRY METHOD 07/22/2024 8:20 PM [facility] CO2 29 21 - 32 mmol/L LAB CHEMISTRY METHOD 07/22/2024 8:20 PM [facility] Anion Gap 5 3 - 11 LAB CHEMISTRY METHOD 07/22/2024 8:20 PM [facility] Glucose 87 70 - 100 mg/dL LAB CHEMISTRY METHOD 07/22/2024 8:20 PM [facility] BUN 13 5 - 25 mg/dL LAB CHEMISTRY METHOD 07/22/2024 8:20 PM [facility] Creatinine 0.70 0.50 - 1.10 mg/dL LAB CHEMISTRY METHOD 07/22/2024 8:20 PM [facility] eGFR 94 >=60 mL/min/1. 73m2 LAB CHEMISTRY METHOD 07/22/2024 8:20 PM [facility] Comment:Calculation based on the Chronic Kidney Disease Epidemiology Collaboration (CKD-EPI) equation refit without adjustment for race. BUN/Creatinine Ratio 18.6 LAB CHEMISTRY METHOD 07/22/2024 8:20 PM [facility] Calcium 9.6 8.5 - 10.5 mg/dL LAB CHEMISTRY METHOD 07/22/2024 8:20 PM EDT [facility] AST (SGOT) 29 10 - 42 unit/L LAB CHEMISTRY METHOD 07/22/2024 8:20 PM EDT [facility] ALT (SGPT) 38 10 - 60 unit/L LAB CHEMISTRY METHOD 07/22/2024 8:20 PM EDT [facility] Alkaline Phosphatase 83 42 - 121 unit/L LAB CHEMISTRY METHOD 07/22/2024 8:20 PM EDT [facility] Total Protein 7.0 6.0 - 8.0 g/dL LAB CHEMISTRY METHOD 07/22/2024 8:20 PM EDT [facility] Albumin 3.8 3.2 - 5.0 g/dL LAB CHEMISTRY METHOD 07/22/2024 8:20 PM EDT [facility] Total Bilirubin 0.6 0.0 - 1.4 mg/dL LAB CHEMISTRY METHOD 07/22/2024 8:20 PM EDT [facility] Blood Venous blood specimen / Unknown 07/22/2024 07/22/2024 2:16 PM EDT [place] LAB BLOOD ORDERABLES Final Resul t [facility] [address] [place] [address], documented in this encounter Visit Diagnoses Diagnosis Obesity, unspecified Essential (primary) hypertension Unspecified essential hypertension Personal history of other endocrine, nutritional and metabolic disease Endocrine disorder, unspecified Chronic fatigue, unspecified documented in this encounter Care Teams Water Commissioner Relationship Specialty Start Date End Date Wilbert Day MD [address] [place] [address] Dr Ignacio [place] PCP - General Family Medicine 08/31/24 documented as of this encounter
--- OUTSIDE RECORDS SUMMARY | 2025-04-24 07:37 | XMS_ITS | Clinical Summary ---
Author Organization [facility] [place] [address] Care Team Providers Care Edge Glue Machine Tender Name Role Phone Primitivo Day MD Primary Care Provider Medications omeprazole (PriLOSEC) [address] Dan ns:Gastroesophag eal reflux disease without esophagitis TAKE 1 CAPSULE BY MOUTH TWICE A DAY 180 capsule 11/09/2024 Active Social History Tobacco Use Types Packs/Day Years Used Date Smoking Tobacco: Never Assessed Comments Unknown Sex and Gender Information Value Date Recorded Sex Assigned at Female 08/31/2024 10:16 AM EDT Legal Sex Female 10:00 PM EST Gender Identity Female 08/31/2024 10:16 AM EDT Sexual Orientation Straight 08/31/2024 10 :16 AM EDT Obstetrics History Para Term AB IAB SAB Ectopic Multiple Livin g Live Births 3 Last Filed Vital Signs Vital Sign Reading Time Taken Comments Blood Pressure - - Pulse - - Temperature - - Respiratory Rate - - Oxygen Saturation - - Inhaled Oxygen Concentration - - Weight 80.7 kg (178 lb) 09/20/2024 7:33 AM EDT Height 167.6 cm (5' 6 ) 09/20/2024 7:33 AM EDT Body Mass Index 28.73 09/20/2024 7:33 AM EDT Plan of Treatment Health Maintenance Due Date Last Done Comments DTaP,Tdap,and Td Vaccines (1 - Tdap) 10/14/1974 Zoster Vaccines (1 of 2) 10/14/2005 Hepatitis C Screening 06/21/2019 Social Influencers of Health Screening 06/21/2019 Pneumococcal Vaccine: 50+ Years (2 of 2 - PCV20 or PCV21) 07/31/2020 08/01/2019 Falls Risk Assessment 10/14/2020 Depression Screening 05/16/2024 COVID-19 Vaccine (1 - 2024- season) 2025 Influenza Vaccine (#1) 2025 , 01/27/2020, 05/10/2019, Additional history exists Breast Cancer Screening 09/20/2026 09/20/2024, 06/02 Cholesterol Screening (Lipid Panel) 07/22/2029 07/22/2024 RSV Immunization Adult Patients (1 - 1-dose 75+ series) 10/14/2030 Osteoporosis [...] to complete this topic RSV Immunization Patients Under 20 months Aged Out No longer eligible based on patient's age to complete this topic Varicella Vaccines Aged Out No longer eligible based on patient's age to complete this topic Procedures Procedure Name Priority Date/Time Associated Diagnosis Comments MG MAMMO DIGITAL SCREENING W BARNEY BILAT Routine 09/20/2024 7:43 AM EDT Encounter for screening mammogram for breast cancer LIPID PANEL WITH REFLEX TO DIRECT LDL Routine 07/22/2024 12:00 AM EST Obesity, unspecified Essential (primary) hypertension Personal history of other endocrine, nutritional and metabolic disease Endocrine disorder, unspecified Chronic fatigue, unspecified EXTERNAL COLONOSCOPY REPORT Routine 07/09/2024 9:19 AM EST MICHAEL DEXA AXIAL SKELETON Routine 06/02/2023 8:01 AM EST Encounter for screening for osteoporosis from Last 3 Months or Most Recently Relevant to Health Maintenance Results * MG Mammo Digital Screening w Barney bilat (09/20/2024 7:43 AM EDT) Anatomical Region Laterality Modality Breast Bilateral Mammography 09/20/2024 9:10 AM EDT Impressions 09/20/2024 9:16 AM EDT No mammographic evidence of malignancy. No suspicious interval change. A negative mammogram in the presence of a clinically suspicious palpable abnormality does not preclude the possibility of malignancy or alter the indications for biopsy. ASSESSMENT: BI-RADS 1: NEGATIVE RECOMMENDATION(S): 1: Routine screening mammogram BILATERAL in 1 year. [facility] [address], [address] -------- FINAL REPORT -------- Dictated By: Andrew Mckeon Dictated Date: 09/20/2024 09:10 ET Assigned Physician: Andrew Mckeon Reviewed and Electronically Signed By: Andrew Mckeon Signed Date: 09/20/2024 09:16 ET Workstation ID: [id number] Transcribed By: Self Edit Transcribed Date: 09/20/2024 09:10 ET Narrative 09/20/2024 9:16 AM EDT EXAM: SCREENING MAMMOGRAPHY, BILATERAL HISTORY: SCREENING. No additional history. COMPARISON: 06/02/23, 05/21/22, 05/18/21, 04/22/20 TECHNIQUE: Synthesized CC and MLO projections of each breast. Tomosynthesis of each breast in the CC and MLO projections. ADDITIONAL IMAGING: None Computer-aided detection was employed with the iCAD Availendar AI 3-D. TISSUE DENSITY: There are scattered areas of fibroglandular density. (BI-RADS category B) FINDINGS: RIGHT BREAST: No suspicious mass. No suspicious calcification. No distortion. No additional suspicious right breast findings LEFT BREAST: No suspicious mass. No suspicious calcification. No distortion. No additional suspicious left breast findings Procedure Note Andrew Mckeon MD - 09/20/2024 EXAM: SCREENING MAMMOGRAPHY, BILATERAL HISTORY: SCREENING. No additional history. COMPARISON: 06/02/23, 05/21/22, 05/18/21, 04/22/20 TECHNIQUE: Synthesized CC and MLO projections of each breast.Tomosynthesis of each breast in the CC and MLO projections. ADDITIONAL IMAGING: None Computer-aided detection was employed with the iCAD [employer]Found AI 3-D. TISSUE DENSITY: There are scattered areas of fibroglandular density.(BI-RADS category B) FINDINGS: RIGHT BREAST: No suspicious mass. No suspicious calcification. No distortion. Noadditional suspicious right breast findings LEFT BREAST: No suspicious mass. No suspicious calcification. No distortion. Noadditional suspicious left breast findings IMPRESSION: No mammographic evidence of malignancy. No suspicious interval change. A negative mammogram in the presence of a clinically suspicious palpableabnormality does not preclude the possibility of malignancy or alter theindications for biopsy. ASSESSMENT: BI-RADS 1: NEGATIVE RECOMMENDATION(S): 1: Routine screening mammogram BILATERAL in 1 year. [facility]amm[facility] location[facility] at [address], [address] -------- FINAL REPORT -------- Dictated By: Andrew Mckeon Dictated Date: 09/20/2024 09:10 ET Assigned Physician: Andrew Mckeon Reviewed and Electronically Signed By: Andrew Mckeon Signed Date: 09/20/2024 09:16 ET Workstation ID: [id number] Transcribed By: Self Edit Transcribed Date: 09/20/2024 09:10 ET us Self Referral Sppl IMG BI PROCEDURES Final Resul t * (ABNORMAL) Lipid panel with reflex to direct LDL (07/22/2024 12:00 AM EST) Cholesterol 180 0 - 200 mg/dL LAB CHEMISTRY METHOD 07/22/2024 8:[address] [facility] Triglycerides 192(H) 0 - 150 mg/dL LAB CHEMISTRY METHOD 07/22/2024 8:[address] [facility] HDL 53 >=40 mg/dL LAB CHEMISTRY METHOD 07/22/2024 8:[address] [facility] LDL Calculated 89 0 - 100 mg/dL LAB CHEMISTRY METHOD 07/22/2024 8:[address] [facility] VLDL Cholesterol Bird 38.4 mg/dL LAB CHEMISTRY METHOD 07/22/2024 8:[address] [facility] Non HDL Chol. (LDL+VLDL) 127 <145 mg/dL LAB CHEMISTRY METHOD 07/22/2024 8:[address] [facility] Chol/HDL Ratio 3.4 0.0 - 4.4 LAB CHEMISTRY METHOD 07/22/2024 8:[address] [facility] Blood Venous blood specimen / Unknown 07/22/2024 07/22/2024 2:16 PM EDT [facility] Ellis LAB BLOOD ORDERABLES Final Resul t [facility] [address] [place] [address], [place] [phone] * External Colonoscopy Report (07/09/2024 9:19 AM EST) Anatomical Region Laterality Modality Endoscopy Historical Provider GI~PROCEDURE ORDERABLES F inal Result * MICHAEL DEXA AXIAL SKELETON (06/02/2023 8:01 AM EST) Anatomical Region Laterality Modality Mammography 06/02/2023 7:04 AM EST Narrative 06/02/2023 8:01 AM EST [facility] Diagnostic Imaging Department [address] [place] [address] Patient: JOSEPH BERNAL /Age/Sex: 1955 67 - F Unit#: [id number] Location/Status: SPDIMAM/REG CLI Mnemonic[facility] Ordering Physician: PRIMITIVO ADKINS MD Michael Dexa Axial Skeleton - 06/02/23734 Report Status:Signed HISTORY: The patient is a 67-year-old postmenopausal female with clinical concern for metabolic bone disease. FINDINGS: Dual [...] 118% of that of age matched controls. This yields a T-score of 0.5 and a Z-score of 1.3 and there is therefore no evidence of osteoporosis or osteopenia here. IMPRESSION: 1. There is no evidence of osteoporosis or osteopenia. 2. FRAX analysis yields a 10-year probability of major osteoporotic fracture of 7.6% and a 10-year probability of hip fracture of 0.5%. Code 15458 Dictating Physician: RUDOLPH QUINTERO MD Electronically Signed by: RUDOLPH QUINTERO MD Dic Date/Time: 06/02/23799 Sign date/Time: 06/02/23800 Procedure Note Rudolph Quintero MD - 01/02/2024 [facility] Diagnostic Imaging Department [address] [place] [id number] Patient: JOSEPH BERNAL [place] /Age/Sex: 1955 67 - F Unit#: [id number] Location/Status: SPDIMAM/REG CLI Mnemonic/Ordering Site: [facility] Ordering Physician: PRIMITIVO ADKINS MD Michael Dexa Axial Skeleton - [...] density of the femurs bilaterally is 1.067 gm/[id number] is 106% of that of young normals [...] probability of hip fracture of 0.5%. Code 63776 Dictating Physician: RUDOLPH QUINTERO MD Electronically Signed by: RUDOLPH QUINTERO MD Dic Date/Time: 06/02/23 0800 Sign date/Time: 06/02/23 08 Primitivo Adkins MD IMG BI PROCEDURES Final Result from Last 3 Months or Most Recently Relevant to Health Maintenance Insurance [employer] Care Teams Edge Glue Machine Tender Relationship Specialty Start Date End Date Primitivo Day MD [address] [place] [address] Dr Ignacio [place] PCP - General Family Medicine 08/31/24
--- OUTSIDE RECORDS SUMMARY | 2025-04-24 07:37 | XMS_ITS | Encounter Summary ---
Author Organization [place] [address] Care Team Providers Care Ethernet Network Architect Name Role Phone Wilbert Day MD Primary Care Provider Encounter Details Date Type Department Care Team (Latest Contact Info) Description 03/26/2024 Lab Requisition [facility] - Main Lab [address] [place] [phone] Wilbert Adkins MD [address] [phone] Encounter for gynecological examination (general) (routine) without [...] intraepithelial lesion or malignancy 03/29/2024 8:39 AM [facility] at 0839 EST General Categorization Negative 03/29/2024 8:39 AM [facility] Other Findings Atrophy 03/29/2024 [...] screening system. Technical cytopathology services provided by [facility], at [address] [place] [address] (CLIA # [id number]/Hari Foley MD, Coal Dumping Equipment Operator.) 03/29/2024 8:39 AM [facility] Console Pap Interpretation Reported 03/29/2024 8:39 AM [facility] Brushing/Spatula Cervix uteri structure / Unknown 03/23/2024 03/26/2024 7:29 AM EST us Wilbert Adkins MD LAB CYTOLOGY ORDERABLES Final Result Performing Organization Address City/State/[facility] Co de Phone Number [facility] [address] [place] [address], documented in this encounter Visit Diagnoses Diagnosis Encounter for gynecological examination (general) (routine) without abnormal findings documented in this encounter Care Teams Ethernet Network Architect Relationship Specialty Start Date End Date Wilbert Day MD [address] [place] [address] Dr Ignacio [place] PCP - General Family Medicine 08/31/24 documented as of this encounter
[2025-04-24 08:37] LABS: Anion Gap 8 (12-20); Blood Urea Nitrogen 7 mg/dL (9-16); Calcium 9.3 mg/dL (8.4-10.2); Carbon Dioxide 35 mmol/L (22-29); Chloride 103 mmol/L (96-108); Estimated Glomerular Filt Rate > 60; Potassium 3.4 mmol/L (3.3-5.1); Sodium 143 mmol/L (135-145)
[2025-04-24 09:06] LABS: Folate 5.2 ng/mL (> or = 4.0); Vitamin B12 1035 pg/mL (200-900)
== END 2025-04-24 07:28 | disposition home or self-care (01) ==
LOC: HO.LAB 07:27
PROVIDERS: PCP Family Medicine; Visit Provider Family Medicine
DX: Z00.00 Encounter for general adult medical examination without abnormal findings (principal); E53.8 Deficiency of other specified B group vitamins
CPT/HCPCS: 36415; 80048; 82607; 82746

== ENCOUNTER 2025-04-26 08:34 | Outpatient (AMB) | payer OTHER, SELFPAY ==
--- NOTE | 2025-04-26 08:42 | MHC.PC.OV ---
Vital Signs 04/26/25 08:47 Height 5 ft 6 in Weight 153 lb 6 oz BMI 24.8 BP 100/70 Blood Pressure Location Rt brachial Position Sitting Respiration 16 Pulse 68 Pulse Source Pulse Oximeter Temp 98.4 F Temp Source Temporal Artery Scan Pulse Oximetry (%) 96 Oxygen Delivery Method Room Air Intake Visit Reasons: f/u HTN RE Intake Note: Marita presents in the office today for a follow up to hypertension. Central Service Tech Required: No Is last menstrual period known: No Post menopausal: Yes Patient : No Allergies Seasonal Allergies Allergy (Intermediate, Verified 04/26/25 08:44) Runny Nose amoxicillin Allergy (Mild, Verified 04/26/25 08:44) Rash Medication List - Last Reconciled 04/26/25 by Wilbert Day MD atenolol 50 mg PO DAILY 90 days betamethasone dipropionate 0.05% 1 appl topical DAILY PRN cholecalciferol (vitamin D3) 50 mcg PO DAILY 90 days ciclopirox 0.77% 1 appl topical BID clobetasol 0.05% 1 appl topical DAILY 90 days epinephrine (EpiPen 2-Indra) 0.3 mg (0.3 mL) IM Q4H PRN 30 days famotidine 40 mg PO DAILY fluticasone propionate 110 mcg/actuation (Flovent HFA) 1 puff inhalation Q12H 30 days hydrochlorothiazide 25 mg PO DAILY ketoconazole 2% topical levothyroxine 75 mcg PO DAILY lorazepam 1 mg PO BEDTIME PRN 30 days mecobalamin (vitamin B12) 1,000 mcg sublingual DAILY 90 days omeprazole 20 mg PO BID rizatriptan 10 mg PO DAILY PRN 28 days tirzepatide (weight loss) (Zepbound) 15 mg subcut QWEEK triamcinolone acetonide 0.025% 1 appl topical DAILY zinc sulfate (Orazinc) 50 mg PO .2 times weekly Tobacco use date assessed: 04/26/25 Dental Screening Dental Screen Date: 04/26/25 Did you have a dental visit in the last 12 months?: Yes Did you have a dental problem in the last 6 months where you did not have access to dental care?: No Was dental information given to patient?: Patient has dentist HPI f/u HTN RE HPI Details 69 y/o female presents to f/u HTN. Blood pressure today 100/70, 68p. She is on hydrochlorothiazide 25mg, atenolol 50mg daily. HPI Comments History of Present Illness Details Documentation assistance for Wilbert Day MD, was provided by Alex Mina, District Branch Manager on 04/26/2025 at 9:12 AM EST. I, Dr. Day, have read, observed, and verified documentation. ? PFSH Medical History Subarachnoid hemorrhage Hyperthyroidism Hypertension Surgical History Hx of cholecystectomy Family History Father Hypertension Social History (Updated 04/26/25 @ 08:47 by Ashley Gooden CMA) Household Members: Spouse Both parents involved: No Caregiver staying overnight: No Housing: House Are you a primary child care to a significant other at home: No Do you presently have visiting nurse or other home services: No 75 years or older and lives alone: No Alcohol intake: never Patient Tobacco Use Status: Never used Tobacco e-Cigarette/Vaping Use: Never Used Second Hand Smoke Exposure: No service: No Current occupational status: employed 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 Current occupational exposures/hazards: No Cognitive needs: No Hearing needs: No Vision needs: No Questionnaire Thrive Questionnaire Date Thrive assessed: 06/18/24 I am a: Patient What is your living situation today?: I have a steady place to live Within the past 12 months, did the food you bought not last and you didn't have the money to get more?: Never true Within the past 12 months, did you worry whether your food would run out before you got money to buy more?: Never true Do you have trouble paying for medicines?: No Do you have trouble getting transportation to medical appointments?: No Do you have trouble paying your heating and electricity bill?: No Do you have trouble taking care of your child, family member or friend?: No Do you have trouble with day-to-day activities such as bathing, preparing meals, shopping, managing finances, etc.?: No Are you currently unemployed and looking for a job?: No Are you interested in more education?: No Please select the resources that you would like help with: None Currently or been in a relationship where the following occur: No concerns reported THRIVE Score: 0 GLYNN-7 AMB Questionnaire GLYNN-7 Date GLYNN - 7 assessed: 05/15/24 Source: Developed by Drs. Bob Hedrick, Yudith Navarrete, Navneet Keenan and colleagues, with an educational cydney from [employer]. Review of Systems Const Denies chills, Denies fatigue, Denies fever(s), Denies headache(s) and Denies weakness ENT Denies dizziness and Denies headache(s) Card Denies dyspnea Resp Denies cough, Denies dyspnea, Denies wheezing and Denies other (shortness of breath) Musc Denies numbness and Denies tingling Neuro Denies dizziness, Denies headache(s), Denies numbness, Denies tingling and Denies weakness Psych Denies anxiety and Denies depression Endo Denies fatigue Aller/Immun Denies wheezing Physical exam (Primary Care) Vital Signs: Last Vital Signs Temp 98.4 F 04/26/25 08:47 Pulse 68 04/26/25 08:47 Resp 16 04/26/25 08:47 BP 100/70 04/26/25 08:47 Pulse Ox 96 04/26/25 08:47 Oxygen Delivery Method Room Air 04/26/25 08:47 BMI result Body Mass Index 24.8 Tobacco/Smoking Status: Tobacco use Status Tobacco use date assessed 04/26/25 04/26/25 08:51 Patient Tobacco Use Status Never used Tobacco 04/26/25 08:47 e-Cigarette/Vaping Use Never Used 04/26/25 08:47 Thrive Assessment: Date of Thrive Assessment Date Thrive assessed 06/18/24 04/26/25 08:43 Currently or been in a relationship where the following occur: No concerns reported Const General: well developed; No acute distress Nutritional Appearance: well nourished Orientation/consciousness: patient oriented x3 HENMT Head: Yes normocephalic and Yes atraumatic Eyes General: appearance normal, both eyes and all related structures Pupils: Equal, round and reactive pupils present EOM: EOMs intact bilaterally Resp Effort & Inspection: normal respiratory effort Neuro General: patient oriented x3 and gait normal Cranial nerves: Yes Equal, round and reactive pupils present Psych Affect: normal affect Coding Level of Care Code Est Pt Level 3 (46866) Diagnoses Hypertension, essential I10 Assessment & Plan Assessment & Plan (1) Hypertension, essential: Code(s): I10 - Essential (primary) hypertension Category: Medical Plan: Blood pressure well controlled. Goal is less than 140/90 She is taking atenolol and hydrochlorothiazide She has a way to check her blood pressures at home Will have her decrease atenolol from 50 mg daily to 25 mg daily She will continue hydrochlorothiazide as prescribed Check blood pressures at home. If blood pressures are too high she will take another atenolol and if this is frequent, she will resume 50 mg daily and let me know. Plan Patient has been taking Zepbound and BMI has decreased from over 30 to less than 25. Now in normal range. Encouraged exercise, active lifestyle and healthy diet Orders: Orders TSH reflex Free T4 Today E03.8 - Other specified hypothyroidism, Z00.00 - Encounter for general adult medical examination without abnormal findings Basic Metabolic Panel Today I10 - Essential (primary) hypertension, Z00.00 - Encounter for general adult medical examination without abnormal findings Microalbumin, Random (w Creat) Today I10 - Essential (primary) hypertension Medications: Changed From atenolol 50 mg PO DAILY 90 days 90 tabs 1RF To atenolol 25 mg PO DAILY 90 tabs 1RF 90 days
[2025-04-26 08:47] VITALS: BP 100/70; PULSE 68; RESP 16; TEMP 36.9; O2SAT 96; BMI 24.8
== END 2025-04-26 09:14 | disposition home or self-care (01) ==
LOC: HO.HMCFM 08:35
PROVIDERS: PCP Family Medicine; Visit Provider Family Medicine
DX: I10 Essential (primary) hypertension (principal)